=== PATIENT | female | born 2000 | race Caucasian/White ===

== ENCOUNTER 2024-08-11 23:04 | Emergency (ER) | payer BC, SELFPAY ==
[2024-08-11 23:05] VITALS: BP 152/109; PULSE 86; RESP 18; TEMP 36.4; O2SAT 98; BMI 27.3
[2024-08-12 00:17] VITALS: PULSE 84; RESP 18
[2024-08-12] MEDS: Ipratropium/Albuterol Sulfate 3 ML AMPUL.NEB INHALATION (00:17)
[2024-08-12] MEDS: dexAMETHasone 10 MG/ML Vial PO.IVFORM (00:22)
--- NOTE | 2024-08-12 00:35 | RAD_ITS ---
PROCEDURE: CHEST PA AND LATERAL 08/12/2024 REASON FOR EXAM: COUGH TECHNIQUE: CHEST PA AND LATERAL COMPARISON: None. FINDINGS: The lungs are expanded. There is no demonstrated parenchymal abnormality. There is no demonstrated pleural abnormality. Normal heart and pericardium. Normal mediastinum and elie. Normal visualized pulmonary arteries. Normal visualized aortic arch and descending thoracic aorta. Normal visualized thoracic spine. Normal visualized ribs, clavicles, and shoulders. There is no demonstrated abnormality of the visualized soft tissue structures of the upper abdomen. RAD/Chest PA and Lateral IMPRESSION: No evidence for acute abnormality. [facility]
--- NOTE | 2024-08-12 01:33 | EDS_ITS ---
HPI History of Present Illness Chief Complaint: Cold Sx Informant: patient Narrative Narrative: Patient is a 24-year-old female with past medical history of vaping. She states 2 to 3 weeks ago she had cough and congestion and was seen in urgent care and diagnosed with bronchitis. She states that after 7 to 10 days she got better from this. However in the last 2 to 3 days she has had return of nasal congestion sore throat and cough and this time feels short of breath. She denies any history of asthma but does admit to vaping. With her return of symptoms that she states are more intense/severe than the previous she presents for evaluation [facility] Medical History no medical history Home Medications ?Medication ?Instructions ?Recorded ?Last Taken ?Type azelastine 137 mcg (0.1 %) nasal 2 spray intranasal BI D #30 mL 08/12/24 Unknown Rx spray prednisone 20 mg tablet 40 mg (2 x 20 mg) PO DAILY 5 days 08/12/24 Unknown Rx #10 tabs Allergy/AdvReac Type Severity Reaction Status Date / Time amoxicillin Allergy Mild Rash Verified 08/11/24 23:05 Social History Smoking Status: Current every day smoker tobacco type: e-cigarettes ROS ROS ED Constitutional Constitutional ED: Denies chills or fever(s) Eyes Eyes: Denies change in vision ENT ENT ED: Reports rhinorrhea and sore throat Cardiovascular Cardiovascular: Denies chest pain Respiratory/Chest Respiratory/Chest: Reports cough and dyspnea Gastrointestinal Gastrointestinal: Denies abdominal pain, diarrhea, nausea or vomiting Genitourinary Genitourinary ED: Denies dysuria Musculoskeletal Musculoskeletal: Denies myalgias Integumentary Denies rash Neurologic Neurologic: Denies headache(s) Hematologic/Lymphatic Hematologic/Lymphatic: Denies easy bleeding or easy bruising Allergic/Immunologic Allergic/Immunologic ED: Denies mouth swelling or tongue swelling EXAM Physical Exam Const Vital Signs: 08/11/24 23:05 08/12/24 00:17 08/12/24 01:44 Temperature 97.5 F L 98.0 F Temperature Source Temporal Pulse Rate 86 84 80 Respiratory Rate 18 18 18 Respiratory Pattern Normal Blood Pressure 152/109 H 131/9 H Blood Pressure Mean 123 49 Pulse Ox 98 100 Oxygen Delivery Method Room Air Positive well nourished and well developed General Appearance ED: well developed; Negative for pallor HEENT HEENT Narrative: Bilateral TMs are retracted but show no secondary findings to suggest infection Nasal mucosa is hyperemic and boggy with enlarged inferior nasal turbinates There is cobblestoning in the posterior pharynx consistent with sinus drainage without airway edema or compromise; no secondary findings to suggest infection Eyes PERRL and EOMs intact bilaterally Neck supple and no JVD Neck Narrative: No nuchal rigidity or meningeal signs Resp normal respiratory effort Resp Narrative: Breath sounds are diminished throughout with faint expiratory wheeze in the bilateral lower lobes however no nasal flaring retractions tachypnea or accessory muscle use Cardio regular rate and regular rhythm Extremity normal to inspection Extremity Narrative: No asymmetric edema no pitting edema negative Homans' sign bilaterally Neuro oriented x3, CN's II-XII intact bilaterally and no sensory deficits noted Sensorium / Orientation: alert Motor Exam: strength 5/5 throughout Psych mental status grossly normal Skin no rashes or lesions noted and no wounds General Skin Exam: Negative for jaundice or pallor MDM MDM MDM Narrative Medical decision making narrative: Patient arrived to the ER hypertensive otherwise with stable vitals. She reported being sick for roughly 2 weeks with symptom improvement only to be sick once again. Differential diagnosis is for upper respiratory tract infection versus potential lung pathology such as pneumonia. As the patient is young and healthy without history of immunosuppression or showing lines of respiratory distress or need for supplemental oxygen I do not feel the need for testing other than chest x-ray to rule out pneumonia or potential pneumothorax. X-ray revealed no acute lung pathology and after receiving Decadron and a DuoNeb breathing treatment she had improvement of her breath sounds and reported feeling better. Therefore as workup is negative she is not in respiratory distress or showing signs of systemic infection she is otherwise safe for discharge with symptomatic care History & Record Review Discussion w/independent historian: Patient Radiography Diagnostic Testing: Clinical Impression(s) from Imaging Studies Chest X-Ray 08/12/24 00:35 IMPRESSION: No evidence for acute abnormality. Reading Location: [place] [id number] Chest x-ray as interpreted by the emergency medicine physician reveals no acute infiltrate pneumothorax or pleural effusion Discharge Plan Triage Chief Complaint: Cold Sx ED Provider: Librado Riley Dx/Rx/DC Orders Clinical Impression: Viral upper respiratory tract infection with cough, Engages in vaping Instructions: ED URI, Viral W/ Wheezing (Adult) Prescriptions: New azelastine 137 mcg (0.1 %) spray,non-aerosol 2 spray intranasal BID Qty: 30 0RF Rx Instructions: administer into each nostril prednisone 20 mg tablet 40 mg PO DAILY 5 Days Qty: 10 0RF Stand Alone Forms: ED Work / School Excuse Primary Care Provider: Care Physician,No Primary Referrals: Delano Gaffney MD [Med Staff - Active Staff] - Care Physician,No Primary [Primary Care Provider] - Activity Restrictions/Additional Instructions: Your x-ray showed no pneumonia. Your symptoms are consistent with a viral upper respiratory tract infection. This will need to resolve on its own as antibiot ics cannot kill a virus. It will last on average 2 to 3 weeks. Take the prescribed medication as directed to help control your symptoms and return to the ER should you have any further concerns. Print Language: Chilean Disposition Disposition: Home, Self Care Discharge Date/Time: 08/12/24 01:44
[2024-08-12] MEDS: Albuterol Sulfate 8 gm Inhaler (60 puffs) 2 PUFF INHALATION (01:43)
[2024-08-12 01:44] VITALS: BP 131/9; PULSE 80; RESP 18; TEMP 36.7; O2SAT 100
== END 2024-08-12 01:44 | disposition home or self-care (01) ==
PROVIDERS: Emergency Provider Emergency Medicine; Visit Provider Emergency Medicine
DX: J06.9 Acute upper respiratory infection, unspecified (principal); F17.290 Nicotine dependence, other tobacco product, uncomplicated
CPT/HCPCS: 71046; 94640; 99282

== ENCOUNTER 2024-12-06 03:06 | Emergency (ER) | payer OTHER, BC, SELFPAY ==
[2024-12-06 03:10] VITALS: BP 132/78; PULSE 70; RESP 16; TEMP 36.6; O2SAT 100; BMI 26.9
[2024-12-06] MEDS: Tetracaine 0.5% Ophthalmic Bottle 1 DRP RIGHT EYE (03:36)
--- NOTE | 2024-12-06 03:44 | CT_ITS ---
PROCEDURE: SINUS/FACIAL BONE 12/06/2024 REASON FOR EXAM: INJURY/PAIN TECHNIQUE: Procedure Code: CTSI Modality: CT Procedure: SINUS/FACIAL BONE Coronal and Sagittal reconstruction series were provided. One or more dose reduction techniques were used (e.g., Automated exposure control, adjustment of the mA and/or kV according to patient size, use of iterative reconstruction technique). RADIATION DOSE SUMMARY: CTDlvol: 29.3 mGy DLP: 753 mGycm COMPARISON: None. FINDINGS: Normal bilateral orbital contents. Normal bilateral medial and inferior orbital snyder. Normal bilateral maxillary bones. Normal bilateral maxillary sinuses. Normal bilateral frontozygomatic arches. Normal bilateral zygomatic temporal arches. Normal nasal bones. Normal anterior nasal spine. Normal soft tissue structures. There is no demonstrated fracture. Normal visualized frontal, ethmoidal and sphenoid sinuses. CT/Sinus/Facial Bone IMPRESSION: No CT evidence of an acute traumatic bone abnormality. Reading [facility]
--- NOTE | 2024-12-06 04:47 | EDS_ITS ---
HPI History of Present Illness Chief Complaint: Head Injury Informant: patient Narrative Narrative: Patient is a 24-year-old female with remote history of epilepsy. She states she works third shift. 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 She states the 1 door was not locked and as she moved the machine it swung open and struck her in the right side of the face near the right eye. She denies any loss of consciousness. She denies any history of bleeding disorder or blood thinner use. She states since the injury she has had pain and swelling along the right eye coupled with headache nausea fatigue and light sensitivity. Secondary to the injury and the symptoms she was sent to the ER for evaluation [facility] Medical History (Updated 12/06/24 @ 04:[address] Librado Riley, DO) Epilepsy Home Medications ?Medication ?Instructions ?Recorded ?Last Taken ?Type ethosuximide 250 mg capsule 250 mg PO DAILY 12/06/24 U nknown History sertraline 50 mg tablet 50 mg PO DAILY 12/06/24 Unkn own History Allergy/AdvReac Type Severity Reaction Status Date / Time amoxicillin Allergy Mild Rash Verified 12/06/24 03:07 Social History Smoking Status: Current every day smoker tobacco type: e-cigarettes ROS ROS ED Constitutional Constitutional ED: Denies chills or fever(s) Eyes Eyes: Reports other Details: Positive photophobia ; Denies blurry vision ENT ENT ED: Reports other Details: No nasal bleeding Positive right cheek/periorbital pain ; Denies sore throat Cardiovascular Cardiovascular: Reports other Details: Negative syncope ; Denies chest pain Respiratory/Chest Respiratory/Chest: Denies cough or dyspnea Gastrointestinal Gastrointestinal: Reports nausea; Denies abdominal pain, diarrhea or vomiting Musculoskeletal Musculoskeletal: Denies back pain or neck pain Integumentary Reports Abrasions and other Details: Positive abrasion right upper eyelid Neurologic Neurologic: Reports headache(s) Hematologic/Lymphatic Hematologic/Lymphatic: Denies easy bleeding or easy bruising EXAM Physical Exam Const Vital Signs: 12/06/24 03:10 12/06/24 03:13 12/06/24 04:58 Temperature 97.9 F 97.6 F L Temperature Source Oral Pulse Rate 70 70 Respiratory Rate 16 18 Respiratory Effort Normal Blood Pressure 132/78 H 128/62 H Blood Pressure Mean 96 84 Pulse Ox 100 100 Oxygen Delivery Method Room Air Room Air Positive well nourished and well developed General Appearance ED: well developed; Negative for pallor HEENT HEENT Narrative: Patient has soft tissue swelling with faint ecchymosis along the right lateral periorbital region that extends into the right upper eyelid There is a small less than half centimeter superficial abrasion along the right upper eyelid without active bleeding or retained foreign body No septal hematoma No signs of depressed or basilar skull fracture Eyes PERRL and EOMs intact bilaterally Eyes Narrative: Soft tissue swelling along the right orbit as documented above No hyphema No subconjunctival hemorrhage No corneal abrasion no retained foreign body Neck supple Neck Narrative: No bony deformity or step-off of the cervical spine; no midline tenderness to palpation Resp normal respiratory effort and clear to auscultation bilaterally Cardio regular rate and regular rhythm Extremity normal to inspection Neuro oriented x3, CN's II-XII intact bilaterally and no sensory deficits noted Sensorium / Orientation: alert Motor Exam: strength 5/5 throughout Psych mental status grossly normal Skin no rashes or lesions noted Skin Narrative: Soft tissue swelling along the right orbit and upper eyelid with superficial abrasion as documented above General Skin Exam: Negative for jaundice or pallor MDM MDM MDM Narrative Medical decision making narrative: Patient arrived to the ER with stable vitals. She reported direct trauma to the right side of the face/orbit. In order to ensure there is no sign of orbital fracture retrobulbar hematoma or zygomatic arch fracture I did elect to perform a CT scan of the face. This revealed no acute finding. By physical exam she does not have a hyphema or a subconjunctival hemorrhage. The patient was given tetracaine and then fluorescein was used to stain the eye to check for potential corneal abrasion or retained foreign object. This was negative. Therefore as patient has headache with nausea and photophobia and fatigue this correlates with concussion. However as she is neurologically intact with stable vitals there is no need for further intervention and she is otherwise safe for discharge. History & Record Review Discussion w/independent historian: Patient Radiography Diagnostic Testing: Clinical Impression(s) from Imaging Studies Facial/Sinus 12/06/24 03:44 IMPRESSION: No CT evidence of an acute traumatic bone abnormality. Reading [facility] Discharge Plan Triage Chief Complaint: Head Injury ED Provider: Librado Riley Dx/Rx/DC Orders Clinical Impression: Contusion of face, Concussion Instructions: Concussion Dc, ED Facial Contusion Prescriptions: No Action ethosuximide 250 mg capsule 250 mg PO DAILY sertraline 50 mg tablet 50 mg PO DAILY Primary Care Provider: Care Physician,No Primary Referrals: [facility] [Provider Group] Care Physician,No Primary [Primary Care Provider, Medical] Activity Restrictions/Additional Instructions: Your CT scan showed no sign of facial fracture or bleeding behind your eye. Your eye exam revealed no sign of corneal abrasion. Your history and exam is consistent with a contusion which is a bone bruise as well as mild concussion. Please avoid bright flashing lights for the next few days as this will make symptoms worse and last longer. Take Tylenol and or Motrin for pain control and return to the ER should you have any further concerns. Print Language: Israeli Disposition Disposition: Home, Self Care Discharge Date/Time: 12/06/24 04:59
[2024-12-06 04:58] VITALS: BP 128/62; PULSE 70; RESP 18; TEMP 36.4; O2SAT 100
== END 2024-12-06 04:59 | disposition home or self-care (01) ==
PROVIDERS: Emergency Provider Emergency Medicine; Visit Provider Emergency Medicine
DX: S06.0X0A Concussion without loss of consciousness, initial encounter (principal); G40.909 Epilepsy, unspecified, not intractable, without status epilepticus; S00.211A Abrasion of right eyelid and periocular area, initial encounter; S00.11XA Contusion of right eyelid and periocular area, initial encounter; W31.2XXA Contact with powered woodworking and forming machines, initial encounter; Z79.899 Other long term (current) drug therapy; F17.290 Nicotine dependence, other tobacco product, uncomplicated
CPT/HCPCS: 70486; 99282

== ENCOUNTER 2024-12-07 23:08 | Emergency (ER) | payer OTHER, BC, SELFPAY ==
[2024-12-07 23:09] VITALS: BP 130/88; PULSE 67; RESP 18; TEMP 35.9; O2SAT 100; BMI 27.2
--- NOTE | 2024-12-07 23:25 | EDS_ITS ---
HPI History of Present Illness Chief Complaint: Head Injury Narrative Narrative: Patient is a 24-year-old female with past medical history of epilepsy who presents to the emergency department with chief complaint of headache. States that she was seen here yesterday after she was hit in the head with a door at work she states that she did not lose consciousness at that point time. She states that she came here had an evaluation was sent home. States that she tried take Aleve for headache after she woke up today however she states that her headache is still severe. She notes that her family had a difficult time waking her up around 9 PM today and this concerned her to come here for further evaluation management. States that she was diagnosed with concussion yesterday as well. Patient states that she has been nauseous. However states that she has eaten and has not had any vomiting PFSH [facility] Medical History Epilepsy Home Medications ?Medication ?Instructions ?Recorded ?Last Taken ?Type ethosuximide 250 mg capsule 250 mg PO DAILY 12/06/24 U nknown History sertraline 50 mg tablet 50 mg PO DAILY 12/06/24 Unkn own History ondansetron 4 mg disintegrating 4 mg PO Q6H PRN nausea and 12/08/24 Unknown Rx tablet vomiting #20 tabs Allergy/AdvReac Type Severity Reaction Status Date / Time amoxicillin Allergy Mild Rash Verified 12/07/24 23:08 Social History Smoking Status: Current every day smoker tobacco type: e-cigarettes ROS ROS ED ROS Narrative Constitutional: Headache as noted above denies lightheadedness or dizziness Eyes: Denies double vision blurry vision Cardiovascular: Denies chest pain Respiratory: Denies shortness of breath Abdomen: Complains of nausea denies vomiting or diarrhea denies abdominal pain : Denies urinary symptoms Neurological: Denies any numbness, weakness, tingling Musculoskeletal: Denies back pain Skin: Denies any rashes or lesions EXAM Physical Exam Narrative Exam Narrative: General: Patient was lying in bed rest comfortably did not appear to be in acute distress Head: Atraumatic, normocephalic Eyes: PERRL bilaterally, EOMI bilaterally, no conjunctival injection noted Neck: Soft, supple, trachea midline Cardiovascular: Regular rate and rhythm Respiratory: Clear to auscultation bilaterally Abdomen: Soft, nondistended, no tenderness to palpation Extremities: +5/5 strength in the bilateral lower extremities Neurological: Patient following commands knew that she was at [facility] years 2024. NIH is 0 GCS 15. Patient completed finger-nose testing bilaterally without difficulty Skin: Warm, dry, tact no rashes or lesions noted Const Vital Signs: 12/07/24 23:09 12/07/24 23:34 Temperature 96.7 F L Temperature Source Temporal Pulse Rate 67 Respiratory Rate 18 Respiratory Effort Normal Respiratory Depth Normal Respiratory Pattern Normal Blood Pressure 130/88 H Blood Pressure Mean 102 Pulse Ox 100 Oxygen Delivery Method Room Air Room Air MDM MDM MDM Narrative Medical decision making narrative: Patient is a 24-year-old female who presented to the emergency department the chief complaint of headache after head trauma yesterday. On the differential diagnose includes but not limited to intracranial hemorrhage, concussion, . Patient was given a gram of Tylenol, Zofran and be reevaluated. Patient CT head brain without contrast showed no acute intracranial normalities. I reevaluated the patient she is feeling better she like to go home at this point time. She is advised to rotate Tylenol and ibuprofen [id number] for mild to moderate pain when she does that she can take something every 3 hours for pain. Prescription for Zofran ODT sent to the pharmacy as well. She was encouraged return with worsening symptoms or other concerns. All question concerns answered she was discharged home in stable condition. Radiography Diagnostic Testing: Clinical Impression(s) from Imaging Studies Brain CT 12/07/24 23:29 IMPRESSION: No acute intracranial abnormality. Reading Location: [facility] Discharge Plan Triage Chief Complaint: Head Injury ED Provider: Robert Tovar Dx/Rx/DC Orders Clinical Impression: Concussion, Contusion of face, Encounter for medical screening examination, Nausea Prescriptions: New ondansetron 4 mg tablet,disintegrating 4 mg PO Q6H PRN (Reason: nausea and vomiting) Qty: 20 0RF No Action ethosuximide 250 mg capsule 250 mg PO DAILY sertraline 50 mg tablet 50 mg PO DAILY Primary Care Provider: Care Physician,No Primary Referrals: Care Physician,No Primary [Primary Care Provider, Medical] Cassidy Bello [facility], GENERATOR TECHNICIAN-C [[facility], [facility]] Activity Restrictions/Additional Instructions: Follow-up the doctor you are referred to. Use the Zofran as prescribed. Rotate Tylenol and ibuprofen [id number] when you do this you can take something every 3 hours for pain max dose of Tylenol in 24 hours 4000 mg max dose of ibuprofen in 24 hours 3200 mg. Return for worsening symptoms or any other concerns. Your CT of your head was normal no evidence of bleeding on the brain. Print Language: Portuguese Disposition Disposition: Home, Self Care
--- NOTE | 2024-12-07 23:29 | CT_ITS ---
PROCEDURE: CT BRAIN/HEAD WITHOUT CONTRAST 12/07/2024 REASON FOR EXAM: HEAD TRAUMA TECHNIQUE: Procedure Code: CTBR Modality: CT Procedure: BRAIN/HEAD WITHOUT CONTRAST Coronal and Sagittal reconstruction series were provided. One or more dose reduction techniques were used (e.g., Automated exposure control, adjustment of the mA and/or kV according to patient size, use of iterative reconstruction technique. RADIATION DOSE SUMMARY: CTDlvol: 44.99 mGy DLP: 812.98 mGycm COMPARISON: None. FINDINGS: No acute intracranial hemorrhage, extra-axial collection, mass effect or evidence of acute infarct. Ventricles and subarachnoid spaces are normal in size. Orbital contents are unremarkable. Intact skull base and calvarium. Clear paranasal sinuses and mastoid air cells. CT/Brain/Head without Contrast IMPRESSION: No acute intracranial abnormality. Reading Location: [id number]
--- OUTSIDE RECORDS SUMMARY | 2024-12-07 23:45 | XMS RPT_ITS | CCD ---
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 Name Role Phone Unavailable Unavailable Unavailable Kotagal, Jake Unavailable Unavailable Kotagal, Jake Unavailable Unavailable Seifried, Korin Unavailable Unavailable Seifried, Korin Unavailable Unavailable FELISHA, PETER Unavailable Unavailable FELISHA, PETER Unavailable Unavailable FELISHA, PETER Unavailable Unavailable NONE, NONE Unavailable Unavailable FELISHA, PETER Unavailable Unavailable FELISHA, PETER Unavailable Unavailable NONE, NONE Unavailable Unavailable Jaison, Cruz [phone] Unavailable Unav ailable MOHIT CAMILO Unavailable Unavailable NONE, NONE Unavailable Unavailable MOHIT CAMILO Unavailable Unavailable MOHIT CAMILO Unavailable Unavailable MOHIT CAMILO Unavailable Unavailable NONE, NONE Unavailable Unavailable Unavailable Primary Care Provider Unavailabl e Provider, Historical Primary Care Provider Unava ilable Provider, Historical Primary Care Provider Unava ilable Unavailable Primary Care Provider Unavailabl mehreen Pineda, Dr. Martin Ferguson Attending Unav ailable Pending, Provider Primary Care Unavailable Generic Provider MD, No Assigned Pcp Primary Car e Provider Unavailable Unavailable Primary Care Provider Unavailabl e GENERIC PROVIDER, NO ASSIGNED PCP Primary Care Unavailable KELSI DESAI Referring Unavailable GENERIC PROVIDER, NO ASSIGNED PCP Primary Care Unavailable Provider, Historical Primary Care Provider Unava ilable GURDEEP VARGAS Referring Unavailabl e ADOLFO ANDERSON Attending Unavailable Provider, Historical Primary Care Provider Unava ilable Care Physician, No Primary Primary Care Provider Unavailable Dr. Librado Riley DO Emergency Provider Unavailable Primary Care Provider UnavailCASSIDY Jimenez Attending Unavailable SELF, SELF Referring Unavailable Unavailable Primary Care Provider UnavailDIAN Peterson Attending Unavailable NEREYDA GONSALES Attending Unavaila Librado You Attending Unavailable Care Physician, No Primary Primary Care Unava ilable Care Physician, No Primary Primary Care Unava ilLibrado Mix Attending Unavailable Allergies Allergy Classification Reported Allergen(s) Allergy Type Date of Onset Reaction(s) Facility (20 sources) amoxicillin; Translations: [Amoxicillin] Drug Allergy 05-09-2013 Rash [facility] Repository Medications Current Medications Medication Drug Class(es) Dates Sig (Normalized) Sig (Original) azelastine hydrochloride 0.137 mg/actuat metered dose nasal spray (1 source) Histamine-1 Receptor Antagonist Start: 08-12-2024 Azelastine 137 mcg (0.1 %) spray,non-aerosol Active 2 NMA INTRANASAL TWICE A DAY August 12, 2024 12:00am administer into each nostril azithromycin 250 mg oral tablet (1 source) Macrolide Antimicrobial Start: 07-02-2018 End: 07-07-2018 take 2 tablets by mouth once daily, then take 1 tablet by mouth once daily, then take 2-5 tablets by mouth azithromycin 250 MG Tab tablet Indications: Strep throat Take by mouth 2 tablets (500 mg) on Day 1, then 1 tablet (250 mg) daily on Days 2-5 6 tablet 0 07/02/2018 07/07/2018 Active brompheniramine maleate 0.4 mg/ml / dextromethorphan hydrobromide 2 mg/ml / pseudoephedrine hydrochloride 6 mg/ml oral solution (2 sources) alpha-Adrenergic Agonist, Uncompetitive K-csojev-B-asparta te Receptor Antagonist, Sigma-1 Agonist Start: 07-26-2024 take 10 mL by mouth every six hours as needed pseudoephedrine-bro mpheniramine-dextro methorphan 30-2-10 MG/5ML Syrup Indications: Sore throat , Viral illness , Acute cough Take 10 mL by mouth every 6 hours as needed. 280 mL 07/26/2024 Active ergocalciferol 1.25 mg oral capsule (8 sources) Provitamin D2 Compound Start: 02-04-2019 ergocalciferol (ERGOCALCIFEROL) 1,250 mcg (50,000 unit) capsule Take 1 (one) capsule (50,000 Units total) by mouth . 02/04/2019 Active Start: 02-04-2019 ergocalciferol 1.25 MG (58988 UT) Cap Take 1 capsule by mouth. 02/04/2019 Active folic acid 1 mg oral tablet (16 sources) Start: 09-25-2021 End: 07-08-2023 take 1 tablet by mouth once daily folic acid 1 mg tablet Indications: Generalized nonconvulsive epilepsy (HCC) Take 1 tablet by mouth once daily. 90 tablet 3 07/08/2023 Active Comment on above: Take 1 tablet by virgilio once daily. predniSONE 20 mg oral tablet (3 sources) Start: 08-12-2024 take 2 tablets by mouth once daily Prednisone 20 mg tablet Active 40 mg PO DAILY 10 August 12, 2024 12:00am Start: 07-01-2018 End: 07-06-2018 take 2 tablets by mouth once daily predniSONE 20 MG Tab tablet Indications: Acute viral pharyngitis Take 2 tablets by mouth daily for 5 days. 10 tablet 0 07/01/2018 07/06/2018 Active sertraline 50 mg oral tablet (14 sources) Serotonin Reuptake Inhibitor Start: 02-04-2019 End: 05-05-2019 take 1 tablet by mouth once daily at dinner sertraline 50 MG Tab tablet Take 50 mg by mouth Daily (with dinner). 02/04/2019 Active Comment on above: TAKE 1 AND 1/2 TABLE TS BY MOUTH ONCE DAILY Completed/Discontinued Medications Medication Drug Class(es) Dates Sig (Normalized) Sig (Original) dextromethorphan hydrobromide 15 mg / guaiFENesin 400 mg / pseudoephedrine hydrochloride 60 mg oral tablet (2 sources) alpha-Adrenergic Agonist, Uncompetitive C-ovzfpo-C-asparta te Receptor Antagonist, Sigma-1 Agonist Start: 12-02-2017 End: 07-01-2018 take 1 tablet by mouth every six hours as needed pseudoephedrine-dex tromethorphan-guaiF ENesin 60-15-400 MG Tab tablet Indications: Acute upper respiratory infection Take 1 tablet by mouth every 6 hours as needed. 30 tablet 0 12/02/2017 07/01/2018 Discontinued ethosuximide 250 mg oral capsule (20 sources) Anti-epileptic Agent Start: 05-08-2017 End: 11-29-2024 take 1 tablet by mouth once daily in the morning ethosuximide (ZARONTIN) 250 mg capsule Take (2) tablets by mouth in the AM and (3) tablets in the PM (=1250 mg/d) 05/08/2017 11/29/2024 Discontinued Comment on above: Take (2) tablets by mouth in the AM and (3) tablets in the PM (=1250 mg/d) naproxen 500 mg oral tablet (2 sources) Nonsteroidal Anti-inflammatory Drug Start: 03-02-2023 End: 03-09-2023 naproxen (Naprosyn) tablet 500 mg ondansetron 4 mg disintegrating oral tablet (7 sources) Serotonin-3 Receptor Antagonist Start: 11-29-2024 End: 11-29-2024 ondansetron (ZOFRAN-ODT) disintegrating tablet 4 mg Start: 11-29-2024 End: 11-29-2024 take 1 tablet by mouth once 4 mg, Oral, Once, On Thu at 1730, For 1 dose, Formulation requires tablet remain in sealed package until immediately prior to dose being administered. Start: 11-29-2024 End: 12-02-2024 apply 1 tablet topically every six hours as needed for nausea ondansetron (ZOFRAN-ODT) 4 MG disintegrating tablet Indications: Nausea and vomiting, unspecified vomiting type Dissolve 1 (one) tablet (4 mg total) on top of tongue every 6 (six) hours as needed (nausea/vomiting) . 12 tablet 11/29/2024 12/02/2024 Active Start: 11-24-2024 End: 12-01-2024 apply 1 tablet topically every eight hours as needed for nausea ondansetron (ZOFRAN-ODT) 4 MG disintegrating tablet Indications: Nausea and vomiting, unspecified vomiting type Dissolve 1 (one) tablet (4 mg total) on top of tongue every 8 (eight) hours as needed for nausea . 12 tablet 11/24/2024 11/29/2024 Discontinued Start: 07-26-2024 take 1 tablet by virgilio th every eight hours as needed for nausea Ondansetron 4 MG Tab Dispersible tablet Indications: Nausea and vomiting, unspecified vomiting type Take 1 tablet by mouth every 8 hours as needed for Nausea. 15 tablet 07/26/2024 Active 1 ml triamcinolone acetonide 40 mg/ml injection (5 sources) Corticosteroid Start: 10-20-2023 End: 10-20-2023 triamcinolone (KENALOG-40) injection 40 mg Start: 10-20-2023 End: 10-20-2023 inject 1 dose by intramuscular injection once 40 mg, Intramuscular, ONCE (IN CLINIC), 1 dose, On Thu10/20/23 at 1615 Start: 10-20-2023 triamcinolone 0.1 % Cream cream Indications: Irritant contact dermatitis due to plants, except food , Vesicular rash Apply twice daily as needed 45 g 1 10/20/2023 Active Problems Active Problems Problem Classification Problem Date Documented Da te Episodic/Chronic Allergic reactions (2 sources) Allergy status to penicillin; Translations: [Irritant contact dermatitis due to plant] Onset: 11-17-2022 10-20-2023 Episodic Anxiety disorders (1 source) Mixed anxiety and depressive disorder; Translations: [Anxiety disorder, unspecified] 07-08-2023 Chronic E Codes: Other specified and classifiable (1 source) Caught, crushed, jammed, or pinched between moving objects, initial encounter; Translations: [Caught, crush, jammed, or pinched betw moving objects, init] Onset: 11-17-2022 Episodic Epilepsy; convulsions (12 sources) Generalized non-convulsive epilepsy; Translations: [Generalized idiopathic epilepsy and epileptic syndromes, not intractable, without status epilepticus] Onset: 05-10-2013 Chronic Headache; including migraine (1 source) Acute headache; Translations: [Acute nonintractable headache, unspecified headache type] 10-16-2024 Episodic Headache; including migraine (2 sources) Headache; including migraine; Translations: [Headache, unspecified] Onset: 10-15-2024 Influenza (2 sources) Influenza due to Influenza A virus; Translations: [Influenza due to Influenza virus, type B] Episodic Nausea and vomiting (7 sources) Nausea and vomiting; Translations: [Nausea with vomiting, unspecified] Onset: 07-26-2024 07-26-2024 Episodic Nonspecific chest pain (3 sources) Chest pain; Translations: [Chest pain, unspecified] Onset: 10-15-2024 10-16-2024 Episodic Nutritional deficiencies (1 source) Vitamin D deficiency; Translations: [Vitamin D deficiency, unspecified] 07-08-2023 Chronic Other aftercare (1 source) Other snf (current) drug therapy; Translations: [Other manager long term care (current) drug therapy] Onset: 11-17-2022 Episodic Other connective tissue disease (1 source) Pain in left hand; Translations: [Pain in left hand] Onset: 11-17-2022 Episodic Other connective tissue disease (1 source) Other specified soft tissue disorders; Translations: [Other specified soft tissue disorders] Onset: 11-17-2022 Episodic Other ear and sense organ disorders (1 source) Impacted cerumen of bilateral ears; Translations: [Impacted cerumen, bilateral] Episodic Other gastrointestinal disorders (2 sources) Encopresis ; Translations: [Full incontinence of feces] Onset: 11-24-2024 11-24-2024 Episodic Other lower respiratory disease (1 source) Cough; Translations: [Acute cough] 07-26-2024 Episodic Other non-traumatic joint disorders (1 source) Joint pain; Translations: [Pain in unspecified joint] 07-08-2023 Episodic Other skin disorders (1 source) Eruption; Translations: [Other skin changes] 10-20-2023 Episodic Other upper respiratory disease (3 sources) Other specified disorders of nose and nasal sinuses; Translations: [Other disease of nasal cavity and sinuses] Onset: 11-29-2024 11-29-2024 Episodic Other upper respiratory infections (6 sources) Acute viral pharyngitis; Translations: [Streptococcal sore throat] Onset: 07-26-2024 07-26-2024 Episodic Residual codes; unclassified (1 source) Influenza-like symptoms; Translations: [Flu-like symptoms] Episodic Unclassified (1 source) Acute cough; Translations: [Acute cough] Onset: 07-26-2024 Viral infection (4 sources) Disease caused by 2019-nCoV; Translations: [COVID-19] Onset: 07-26-2024 Episodic Past or Other Problems Problem Classification Problem Date Documented Da te Episodic/Chronic Abdominal pain (5 sources) Unspecified abdominal pain; Translations: [Abdominal pain, unspecified site] Onset: 04-27-2017 Episodic Genitourinary symptoms and ill-defined conditions (6 sources) Dysuria; Translations: [Dysuria] Onset: 10-27-2016 Episodic Other upper respiratory disease (1 source) Nasal congestion; Translations: [Nasal congestion] Onset: 08-17-2024 Episodic Sprains and strains (3 sources) Sprain of right ankle; Translations: [Sprain of unspecified ligament of right ankle, initial encounter] Onset: 03-02-2023 03-02-2023 Episodic Superficial injury; contusion (7 sources) Contusion of left hand, initial encounter; Translations: [Contusion of left hand] Onset: 11-17-2022 12-04-2022 Episodic Unclassified (1 source) ABDOMINAL PAIN-SITE NOS; Translations: [ABDOMINAL PAIN-SITE NOS] Onset: 04-27-2017 Unclassified (1 source) Acute cough; Translations: [Acute cough] Onset: 07-26-2024 Results Test Name Value Interpretation Reference Range Facility Emergency Department Summary on 12-06-2024 Emergency Department Summary [facility] Medical Records Department [address] [place] [address] Emergency Department Summary 12/06/24 MR#: [id number] Acct: [id number] Name: LIN DECKER Zach Rep #: [id number] : 2000 24 From: Librado Riley DO PCP: Care Physician,No Primary Status:DEP ER Location: ED HPI History of Present Illness Chief Complaint: Head Injury Informant: patient Narrative Narrative: Patient is a 24-year-old female with remote history of epilepsy. She states she works third shift. 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 She states the 1 door was not locked and as she moved the machine it swung open and struck her in the right side of the face near the right eye. She denies any loss of consciousness. She denies any history of bleeding disorder or blood thinner use. She states since the injury she has had pain and swelling along the right eye coupled with headache nausea fatigue and light sensitivity. Secondary to the injury and the symptoms she was sent to the ER for evaluation [facility] Medical History (Updated 12/06/24 @ 04:[address] Librado Riley, DO) Epilepsy Home Medications ???Medication ???Instructions ???Recorded ???Last Taken ???Type ethosuximide 250 mg capsule 250 mg PO DAILY 12/06/24 Unknown H istory sertraline 50 mg tablet 50 mg PO DAILY 12/06/24 Unknown Hi story Allergy/AdvReac Type Severity Reaction Status Date / Time amoxicillin Allergy Mild Rash Verified 12/06/24 03:07 Social History Smoking Status: Current every day smoker tobacco type: e-cigarettes ROS ROS ED Constitutional Constitutional ED: Denies chills or fever(s) Eyes Eyes: Reports other Details: Positive photophobia ; Denies blurry vision ENT ENT ED: Reports other Details: No nasal bleeding Positive right cheek/periorbital pain ; Denies sore throat Cardiovascular Cardiovascular: Reports other Details: Negative syncope ; Denies chest pain Respiratory/Chest Respiratory/Chest: Denies cough or dyspnea Gastrointestinal Gastrointestinal: Reports nausea; Denies abdominal pain, diarrhea or vomiting Musculoskeletal Musculoskeletal: Denies back pain or neck pain Integumentary Reports Abrasions and other Details: Positive abrasion right upper eyelid Neurologic Neurologic: Reports headache(s) Hematologic/Lymphatic Hematologic/Lymphatic : Denies easy bleeding or easy bruising EXAM Physical Exam Const Vital Signs: 12/06/24 03:10 12/06/24 03:13 12/06/24 04:58 Temperature 97.9 F 97.6 F L Temperature Source Oral Pulse Rate 70 70 Respiratory Rate 16 18 Respiratory Effort Normal Blood Pressure 132/78 H 128/62 H Blood Pressure Mean 96 84 Pulse Ox 100 100 Oxygen Delivery Method Room Air Room Air Positive well nourished and well developed General Appearance ED: well developed; Negative for pallor HEENT HEENT Narrative: Patient has soft tissue swelling with faint ecchymosis along the right lateral periorbital region that extends into the right upper eyelid There is a small less than half centimeter superficial abrasion along the right upper eyelid without active bleeding or retained foreign body No septal hematoma No signs of depressed or basilar skull fracture Eyes PERRL and EOMs intact bilaterally Eyes Narrative: Soft tissue swelling along the right orbit as documented above No hyphema No subconjunctival hemorrhage No corneal abrasion no retained foreign body Neck supple Neck Narrative: No bony deformity or step-off of the cervical spine; no midline tenderness to palpation Resp normal respiratory effort and clear to auscultation bilaterally Cardio regular rate and regular rhythm Extremity normal to inspection Neuro oriented x3, CN's II-XII intact bilaterally and no sensory deficits noted Sensorium / Orientation: alert Motor Exam: strength 5/5 throughout Psych mental status grossly normal Skin no rashes or lesions noted Skin Narrative: Soft tissue swelling along the right orbit and upper eyelid with superficial abrasion as documented above General Skin Exam: Negative for jaundice or pallor MDM MDM MDM Narrative Medical decision making narrative: Patient arrived to the ER with stable vitals. She reported direct trauma to the right side of the face/orbit. In order to ensure there is no sign of orbital fracture retrobulbar hematoma or zygomatic arch fracture I did elect to perform a CT scan of the face. This revealed no acute finding. By physical exam she does not have a hyphema or a subconjunctival hemorrhage. The patient was given tetracaine and then fluorescein was used to stain the eye to check for potential corneal abrasion or retained foreign object. This was negative. Therefore as patient (more content not included)... Normal [facility] Sinus/Facial Boneon 12-07-19 Sinus/Facial Bone [facility] Imaging Services [address] [place] [address] Sinus/Facial Bone MR#: [id number] Acct: [id number] Name: LIN DECKER Rep #: [id number] : 2000 F 24 From: Bharti samuel MD PCP: Care Physician,No Primary Status: REG ER Study: Sinus/Facial Bone Date of Exam: 12/06/24 Exam# [id number] Ordering Dr: Librado Riley DO PROCEDURE: SINUS/FACIAL BONE 12/06/2024 REASON FOR EXAM: INJURY/PAIN TECHNIQUE: Procedure Code: CTSI Modality: CT Procedure: SINUS/FACIAL BONE Coronal and Sagittal reconstruction series were provided. One or more dose reduction techniques were used (e.g., Automated exposure control, adjustment of the mA and/or kV according to patient size, use of iterative reconstruction technique). RADIATION DOSE SUMMARY: CTDlvol: 29.3 mGy DLP: 753 mGycm COMPARISON: None. FINDINGS: Normal bilateral orbital contents. Normal bilateral medial and inferior orbital snyder. Normal bilateral maxillary bones. Normal bilateral maxillary sinuses. Normal bilateral frontozygomatic arches. Normal bilateral zygomatic temporal arches. Normal nasal bones. Normal anterior nasal spine. Normal soft tissue structures. There is no demonstrated fracture. Normal visualized frontal, ethmoidal and sphenoid sinuses. CT/Sinus/Facial Bone IMPRESSION: No CT evidence of an acute traumatic bone abnormality. Reading [facility] CC: Librado Riley DO; No Primary Care Physician [employer]: Signed Normal [facility] Portable XR Chest Viewson IMPRESSION: Normal examination of the chest. RADIOLOGY EXAM: XR CHEST 1 VIE W PORTABLE REASON FOR EXAM: Female, 24 years, pain. TECHNIQUE: A single AP view of the chest is performed. COMPARISON: None. FINDINGS: Cardiac monitoring leads overlie the chest. The lungs are expanded and clear. Normal pleura. Normal size heart. Normal mediastinum and elie. Normal visualized pulmonary arteries. Normal visualized aortic arch and descending thoracic aorta. Normal visualized thoracic spine. Normal visualized ribs, clavicles, and shoulders. There is no demonstrated abnormality of the visualized soft tissue structures of the upper abdomen. RADIOLOGY Blayne Bello DO - 10/16/2024 EXAM: XR CHEST 1 VIEW PORTABLE REASON FOR EXAM: Female, 24 years, pain. TECHNIQUE: A single AP view of the chest is performed. COMPARISON: None. FINDINGS: Cardiac monitoring leads overlie the chest. The lungs are expanded and clear. Normal pleura. Normal size heart. Normal mediastinum and elie. Normal visualized pulmonary arteries. Normal visualized aortic arch and descending thoracic aorta. Normal visualized thoracic spine. Normal visualized ribs, clavicles, and shoulders. There is no demonstrated abnormality of the visualized soft tissue structures of the upper abdomen. IMPRESSION IMPRESSION: Normal examination of the chest. [facility] (narrative[facility] Chest ViewsOrder ed By: Blayne Bello on 10-16-2024 [employer] Work Phone: XR CHEST 1 VIEW PORTABLEon 0 10-16-2024 XR CHEST 1 VIEW PORTABLE EXAM: XR CHEST 1 VIEW PORTABLE REASON FOR EXAM: Female, 24 years, pain. TECHNIQUE: A single AP view of the chest is performed. COMPARISON: None. FINDINGS: Cardiac monitoring leads overlie the chest. The lungs are expanded and clear. Normal pleura. Normal size heart. Normal mediastinum and elie. Normal visualized pulmonary arteries. Normal visualized aortic arch and descending thoracic aorta. Normal visualized thoracic spine. Normal visualized ribs, clavicles, and shoulders. There is no demonstrated abnormality of the visualized soft tissue structures of the upper abdomen. IMPRESSION: Normal examination of the chest. Normal [facility] CBCon 10-15-2024 ABSOLUTE BAS 0.0 10*3/uL Normal 0.0-0.2 [facility] Comment on above: Performed By: #### L IPA2, CHEM7F, ACBC, LIVR, DDIMER #### Testing performed at [address] [address] ABSOLUTE EOS 0.1 10*3/uL Normal 0.0-0.7 [facility] Comment on above: Performed By: #### L IPA2, CHEM7F, ACBC, LIVR, DDIMER #### Testing performed at [address] [address] ABSOLUTE NEUTROPHIL COUNT 4.7 10*3/uL Normal 1.4-6.5 [facility] Comment on above: Performed By: #### L IPA2, CHEM7F, ACBC, LIVR, DDIMER #### Testing performed at [address] [address] Basophils/100 WBC (Bld) 0.5 % Normal 0.0-2.0 [facility] Comment on above: Performed By: #### L IPA2, CHEM7F, ACBC, LIVR, DDIMER #### Testing performed at [address] [address] DTYPE AUTO DIFF Normal [facility] Comment on above: Performed By: #### L IPA2, CHEM7F, ACBC, LIVR, DDIMER #### Testing performed at [address] [address] Eosinophils/100 WBC (Bld) 1.3 % Normal 0.0-11.0 [facility] Comment on above: Performed By: #### L IPA2, CHEM7F, ACBC, LIVR, DDIMER #### Testing performed at [address] [address] Lymphocytes (Bld) [#/Vol] 2.1 10*3/uL Normal 1.2-3.4 [facility] Comment on above: Performed By: #### L IPA2, CHEM7F, ACBC, LIVR, DDIMER #### Testing performed at [address] [address] Lymphocytes/100 WBC (Bld) 27.5 % Normal 20.0-55.0 [facility] Comment on above: Performed By: #### L IPA2, CHEM7F, ACBC, LIVR, DDIMER #### Testing performed at [address] [address] Monocytes (Bld) [#/Vol] 0.8 10*3/uL High 0.0-0.7 [facility] Comment on above: Performed By: #### L IPA2, CHEM7F, ACBC, LIVR, DDIMER #### Testing performed at [address] [address] Monocytes/100 WBC (Bld) 10.7 % High 0.0-10.0 [facility] Comment on above: Performed By: #### L IPA2, CHEM7F, ACBC, LIVR, DDIMER #### Testing performed at [address] [address] Neutrophils/100 WBC (Bld) 60.0 % Normal 37.0-75.0 [facility] Comment on above: Performed By: #### L IPA2, CHEM7F, ACBC, LIVR, DDIMER #### Testing performed at [address] [address] Erythrocyte distribution width (RBC) [Ratio] 12.9 % Normal 11.5-14.5 [facility] Comment on above: Performed By: #### L IPA2, CHEM7F, ACBC, LIVR, DDIMER #### Testing performed at [address] [address] Hematocrit (Bld) [Volume fraction] 38.5 % Normal 36.0-48.0 [facility] Comment on above: Performed By: #### L IPA2, CHEM7F, ACBC, LIVR, DDIMER #### Testing performed at [address] [address] Hemoglobin (Bld) [Mass/Vol] 13.2 g/dL Normal 12.0-16.0 [facility] Comment on above: Performed By: #### L IPA2, CHEM7F, ACBC, LIVR, DDIMER #### Testing performed at [address] [address] MCH (RBC) [Entitic mass] 30.1 pg Normal 26.0-35.0 [facility] Comment on above: Performed By: #### L IPA2, CHEM7F, ACBC, LIVR, DDIMER #### Testing performed at [address] [address] MCHC (RBC) [Mass/Vol] 34.3 g/dL Normal 27.0-37.0 [facility] Comment on above: Performed By: #### L IPA2, CHEM7F, ACBC, LIVR, DDIMER #### Testing performed at [address] [address] MCV (RBC) [Entitic vol] 87.7 fL Normal 80.0-100.0 [facility] Comment on above: Performed By: #### L IPA2, CHEM7F, ACBC, LIVR, DDIMER #### Testing performed at [address] [address] Platelet mean volume (Bld) [Entitic vol] 8.2 fL Normal 7.4-11.0 [facility] Comment on above: Performed By: #### L IPA2, CHEM7F, ACBC, LIVR, DDIMER #### Testing performed at [address] [address] Platelets (Bld) [#/Vol] 311 10*3/uL Normal 130-400 [facility] Comment on above: Performed By: #### L IPA2, CHEM7F, ACBC, LIVR, DDIMER #### Testing performed at [address] [address] RBC (Bld) [#/Vol] 4.39 10*6/uL Normal 4.0-5.4 [facility] Comment on above: Performed By: #### L IPA2, CHEM7F, ACBC, LIVR, DDIMER #### Testing performed at [facility] [address] [facility] [place] [address] WBC (Bld) [#/Vol] 7.8 10*3/uL Normal 3.6-11.0 [facility] Comment on above: Performed By: #### L IPA2, CHEM7F, ACBC, LIVR, DDIMER #### Testing performed at [id number] [place] [address] CBC, EDIF, PLATELETon 2024 ABSOLUTE BASOPHIL COUNT 0.0 10*3/uL 0.0 - 0.2 10*3/uL [facility] Basophils/100 WBC (Bld) 0.5 % 0.0 - 2.0 % [facility] Differential cell count method Nom (Bld) AUTO DIFF % [facility] Eosinophils (Bld) [#/Vol] 0.1 10*3/uL 0.0 - 0.7 10*3/uL [facility] Eosinophils/100 WBC (Bld) 1.3 % 0.0 - 11.0 % [facility] Erythrocyte distribution width (RBC) [Ratio] 12.9 % 11.5 - 14.5 % [facility] Hematocrit (Bld) [Volume fraction] 38.5 % 36.0 - 48.0 % [facility] Hemoglobin (Bld) [Mass/Vol] 13.2 g/dL [facility] Interpretation and review of laboratory results Abnormal [facility] Lymphocytes (Bld) [#/Vol] 2.1 10*3/uL 1.2 - 3.4 10*3/uL [facility] Lymphocytes/100 WBC (Bld) 27.5 % 20.0 - 55.0 % [facility] MCH (RBC) [Entitic mass] 30.1 pg 26.0 - 35.0 PG [facility] MCHC (RBC) [Mass/Vol] 34.3 g/dL [facility] MCV (RBC) [Entitic vol] 87.7 fL [facility] Monocytes (Bld) [#/Vol] 0.8 10*3/uL High 0.0 - 0.7 10*3/uL [facility] Monocytes/100 WBC (Bld) 10.7 % High 0.0 - 10.0 % [facility] Neutrophils (Bld) [#/Vol] 4.7 10*3/uL 1.4 - 6.5 10*3/uL [facility] Neutrophils/100 WBC (Bld) 60.0 % 37.0 - 75.0 % [facility] Platelet mean volume (Bld) [Entitic vol] 8.2 fL [facility] Platelets (Bld) [#/Vol] 311 10*3/uL 130 - 400 10*3/uL [facility] RBC (Bld) [#/Vol] 4.39 10*6/uL 4.0 - 5.4 10*6/uL [facility] WBC (Bld) [#/Vol] 7.8 10*3/uL 3.6 - 11.0 10*3/uL [facility] CHEM 7 FASTINGon 10-15-2024 Chloride [Moles/Vol] 106 mmol/L Normal 98-107 [facility] Comment on above: Result Comment: Abiel paris note: Triglyceride levels of 600mg/dL or higher may positively bias chloride results by approximately 2.1 mmol Performed By: #### L IPA2, CHEM7F, ACBC, LIVR, DDIMER #### [place] [address] CO2 [Moles/Vol] 24 mmol/L Normal 22-[address] [facility] Comment on above: Performed By: #### L IPA2, CHEM7F, ACBC, LIVR, DDIMER #### [place] [address] Creatinine [Mass/Vol] 0.60 mg/dL Low 0.70-1.20 [facility] Comment on above: Performed By: #### L IPA2, CHEM7F, ACBC, LIVR, DDIMER #### [place] [address] GFR Information Average GFR for 18-2 9 years old = 116. Normal [facility] Comment on above: Result Comment: Continuous Pillowcase Cutter reena Kidney disease, GFR = <60. Kidney failure, GFR = <15. The GFR estimate is not adjusted for extreme body surface area or acute process, nor has it been validated for women or ethnic groups other than and . MDRD Equation Performed By: #### L IPA2, CHEM7F, ACBC, LIVR, DDIMER #### Testing performed at [address] [address] GFR/1.73 sq M.predicted MDRD (S/P/Bld) [Vol rate/Area] 133 mL/min/{1.73_m2} Normal [facility] Comment on above: Performed By: #### L IPA2, CHEM7F, ACBC, LIVR, DDIMER #### Testing performed at [address] [address] Glucose [Mass/Vol] 97 mg/dL Normal 70-100 [facility] Comment on above: Result Comment: NORMAL <100 mg/dL PREDIABETES 101-126 mg/dL DIABETES 126 mg/dL or higher Performed By: #### L IPA2, CHEM7F, ACBC, LIVR, DDIMER #### Testing performed at [address] [address] Potassium [Moles/Vol] 4.4 mmol/L Normal 3.5-5.1 [facility] Comment on above: Performed By: #### L IPA2, CHEM7F, ACBC, LIVR, DDIMER #### Testing performed at [address] [address] Sodium [Moles/Vol] 138 mmol/L Normal 137-145 [facility] Comment on above: Performed By: #### L IPA2, CHEM7F, ACBC, LIVR, DDIMER #### Testing performed at [address] [address] Urea nitrogen [Mass/Vol] 11 mg/dL Normal 7-20 [facility] Comment on above: Performed By: #### L IPA2, CHEM7F, ACBC, LIVR, DDIMER #### Testing performed at [address] [address] CHEM 7 (LYTES,BUN,CREA,GLUC) on 10-15-2024 Chloride [Moles/Vol] 106 mmol/L [facility] Comment on above: Please note: Triglyc eride levels of 600mg/dL or higher may positively bias chloride results by approximately 2.1 mmol CO2 [Moles/Vol] 24 mmol/L [facility] Creatinine [Mass/Vol] 0.60 mg/dL Low 0.70 - 1.20 mg/dL [facility] GFR COMMENT Average GFR for 18-2 9 years old = 116. [employer] Comment on above: Chronic Kidney disea se, GFR = <60. Kidney failure, GFR = <15. The GFR estimate is not adjusted for extreme body surface area or acute process, nor has it been validated for women or ethnic groups other than and . MDRD Equation GFR/1.73 sq M.predicted MDRD (S/P/Bld) [Vol rate/Area] 133 mL/min/{1.73_m2} ml/min/1.73s q.m [facility] Glucose post fast [Mass/Vol] 97 mg/dL [facility] Comment on above: NORMAL <100 mg/dL PREDIABETES 101-126 mg/dL DIABETES 126 mg/dL or higher Interpretation and review of laboratory results Abnormal [employer] Potassium [Moles/Vol] 4.4 mmol/L [facility] Sodium [Moles/Vol] 138 mmol/L [facility] Urea nitrogen [Mass/Vol] 11 mg/dL 7 - 20 mg/dL [facility] HEAD WITHOUT CONTRASTon 0 10-15-2024 CT HEAD WITHOUT CONTRAST EXAMINATION: CT HEAD WITHOUT CONTRAST INDICATION: 24 years old; Female. Headache. TECHNIQUE: CT Head (ax/cor/sag reformats). Ionizing radiation dose reduced via iterative reconstruction/FBP blend and body size kV/mA adjustment. Comparison: None FINDINGS: POSTOPERATIVE CHANGES: None. BRAIN PARENCHYMA: No intraparenchymal or extra-axial hemorrhage. No mass effect. No midline shift or herniation. Normal gleason/white differentiation. VENTRICLES/EXTRA-AXIA L SPACES: Normal for patient's age. SINUSES/MASTOIDS: The sinuses are clear although the maxillary sinuses are not completely included in the examination. Raissa bullosa on the right. The mastoids and middle ears are clear. MSK: No displaced or depressed calvarial fracture. OTHER: No hyperdense intraluminal thrombus is present. IMPRESSION: 1. No acute intracranial abnormality. No hemorrhage or mass effect. Normal [facility] CT Head WO contraston 2024 IMPRESSION: 1. No acute intracranial abnormality. No hemorrhage or mass effect. RADIOLOGY EXAMINATION: CT HEAD WITHOUT CONTRAST INDICATION: 24 years old; Female. Headache. TECHNIQUE: CT Head (ax/cor/sag reformats). Ionizing radiation dose reduced via iterative reconstruction/FBP blend and body size kV/mA adjustment. Comparison: None FINDINGS: POSTOPERATIVE CHANGES: None. BRAIN PARENCHYMA: No intraparenchymal or extra-axial hemorrhage. No mass effect. No midline shift or herniation. Normal gleason/white differentiation. VENTRICLES/EXTRA-AXIA L SPACES: Normal for patient's age. SINUSES/MASTOIDS: The sinuses are clear although the maxillary sinuses are not completely included in the examination. Raissa bullosa on the right. The mastoids and middle ears are clear. MSK: No displaced or depressed calvarial fracture. OTHER: No hyperdense intraluminal thrombus is present. RADIOLOGY Napoleon Kendall M D - 10/15/2024 EXAMINATION: CT HEAD WITHOUT CONTRAST INDICATION: 24 years old; Female. Headache. TECHNIQUE: CT Head (ax/cor/sag reformats). Ionizing radiation dose reduced via iterative reconstruction/FBP blend and body size kV/mA adjustment. Comparison: None FINDINGS: POSTOPERATIVE CHANGES: None. BRAIN PARENCHYMA: No intraparenchymal or extra-axial hemorrhage. No mass effect. No midline shift or herniation. Normal gleason/white differentiation. VENTRICLES/EXTRA-AXIA L SPACES: Normal for patient's age. SINUSES/MASTOIDS: The sinuses are clear although the maxillary sinuses are not completely included in the examination. Raissa bullosa on the right. The mastoids and middle ears are clear. MSK: No displaced or depressed calvarial fracture. OTHER: No hyperdense intraluminal thrombus is present. IMPRESSION IMPRESSION: 1. No acute intracranial abnormality. No hemorrhage or mass effect. [facility] Radiology Study observation (narrative) [facility] CT Head WO contrastOrdered B y: Napoleon Kendall on 10-15-2024 [facility] Work Phone: D DIMERon 10-15-2024 D DIMER <0.27 Normal <0.50 [facility] Comment on above: Result Comment: If r esult is greater than the cutoff value of 0.50 ?g/ml then the potential for PE or DVT exists. Other conditions exist which may cause a falsely elevated level. Please correlate clinically, including radiological findings and other clinical parameters. Performed By: #### L IPA2, CHEM7F, ACBC, LIVR, DDIMER #### Testing performed at [address] [address] D-DIMER,QUANTITATIVEon 10-15 Fibrin D-dimer FEU (PPP) [Mass/Vol] <0.27 NINF [facility] Comment on above: If result is greater than the cutoff value of 0.50 g/ml then the potential for PE or DVT exists. Other conditions exist which may cause a falsely elevated level. Please correlate clinically, including radiological findings and other clinical parameters. [facility] HEPATIC FUNCTION PANELon Albumin [Mass/Vol] 4.1 g/dL [facility] ALP [Catalytic activity/Vol] 125 U/L 38 - 126 U/L [facility] ALT [Catalytic activity/Vol] 12 U/L NINF - 35 U/L [facility] AST [Catalytic activity/Vol] 20 U/L 14 - 36 U/L [facility] Bilirubin [Mass/Vol] 0.2 mg/dL 0.2 - 1 .3 mg/dL [facility] Bilirubin.direct [Mass/Vol] 0.1 mg/dL [facility] Protein [Mass/Vol] 6.9 g/dL 6.3 - 8.2 g/dL [facility] INFLUENZA A AND B, PCRon FLUAV and FLUBV Ag IF Nom (Unsp spec) Negative NEGATIVE [facility] FLUBV Ag IA Ql (Unsp spec) Negative NEGATIVE [facility] Comment on above: TESTING PERFORMED BY [facility] LIPASEon 10-15-2024 Lipase [Catalytic activity/Vol] 88 U/L 23 - 300 U/L [facility] LIPASE,SERUMon 10-15-2024 LIPASE,SERUM 88 U/L Normal 23-300 [facility] Comment on above: Performed By: #### L IPA2, CHEM7F, ACBC, LIVR, DDIMER #### Testing performed at [address] [address] LIVER PANELon 10-15-2024 ALT [Catalytic activity/Vol] 12 U/L Normal <35 [facility] Comment on above: Performed By: #### L IPA2, CHEM7F, ACBC, LIVR, DDIMER #### Testing performed at [address] [address] AST [Catalytic activity/Vol] 20 U/L Normal 14-36 [facility] Comment on above: Performed By: #### L IPA2, CHEM7F, ACBC, LIVR, DDIMER #### Testing performed at [address] [address] Albumin [Mass/Vol] 4.1 g/dL Normal 2.9-5.3 [facility] Comment on above: Performed By: #### L IPA2, CHEM7F, ACBC, LIVR, DDIMER #### Testing performed at [address] [address] ALP [Catalytic activity/Vol] 125 U/L Normal 38-126 [facility] Comment on above: Performed By: #### L IPA2, CHEM7F, ACBC, LIVR, DDIMER #### Testing performed at [address] [address] Bilirubin [Mass/Vol] 0.2 mg/dL Normal 0.2-1.3 [facility] Comment on above: Performed By: #### L IPA2, CHEM7F, ACBC, LIVR, DDIMER #### Testing performed at [address] [address] Bilirubin.indirect [Mass/Vol] 0.1 mg/dL Normal 0.0-0.4 [facility] Comment on above: Performed By: #### L IPA2, CHEM7F, ACBC, LIVR, DDIMER #### Testing performed at [address] [address] Protein [Mass/Vol] 6.9 g/dL Normal 6.3-8.2 [facility] Comment on above: Performed By: #### L IPA2, CHEM7F, ACBC, LIVR, DDIMER #### Testing performed at [address] [address] NOVEL CORONAVIRUSon 10-16-19 25 NARRATIVE This test was performed using isothermal LINDSAY for the qualitative detection of SARS-CoV-2 nucleic acid. Normal [facility] Comment on above: Performed By: #### C OVID #### Testing performed at [place] [id number] SARS-CoV-2 (COVID-19) RNA LINDSAY+probe Ql (Unsp spec) Not detected Normal NOT DETECTED [facility] Comment on above: Result Comment: Nega tive results do not preclude SARS-CoV-2 infection and should not be used as the sole basis for treatment or other patient management decisions. Optimum specimen types and timing for peak viral levels during infections caused by SARS-CoV-2 has not been determined. The possibility of a false negative result should especially be considered if the patient's recent exposures or clinical presentation suggest that SARS-CoV-2 infection is probable, and diagnostic tests for other causes of illness (e.g., other respiratory illness) are negative. Collection of a new specimen and re-testing may be necessary if the patient is critically ill or clinically deteriorating. Performed By: #### C OVID #### Testing performed at [address] [address] NOVEL CORONAVIRUS LAB 1 - NA SOPHARYNGEALon 10-15-2024 SARS-CoV-2 (COVID-19) RNA LINDSAY+probe Ql (Unsp spec) Not detected NOT DETECTED [facility] Comment on above: Negative results do not preclude SARS-CoV-2 infection and should not be used as the sole basis for treatment or other patient management decisions. Optimum specimen types and timing for peak viral levels during infections caused by SARS-CoV-2 has not been determined. The possibility of a false negative result should especially be considered if the patient's recent exposures or clinical presentation suggest that SARS-CoV-2 infection is probable, and diagnostic tests for other causes of illness (e.g., other respiratory illness) are negative. Collection of a new specimen and re-testing may be necessary if the patient is critically ill or clinically deteriorating. SARS-CoV-2 (COVID-19) RNA LINDSAY+probe Ql (Unsp spec) This test was performed using isothermal LINDSAY for the qualitative detection of SARS-CoV-2 nucleic acid. [facility] No Panel Informationon 10-15 [facility] RAPID FLU Aon 08-23-2025 INFLUENZA A Negative Normal NEGATIVE [facility] Comment on above: Performed By: #### L IPA2, CHEM7F, ACBC, LIVR, DDIMER #### Testing performed at [address] [address] INFLUENZA B Negative Normal NEGATIVE [facility] Comment on above: Result Comment: TEST ING PERFORMED BY LINDSAY Performed By: #### L IPA2, CHEM7F, ACBC, LIVR, DDIMER #### Testing performed at [place] [id number] TROPONIN I, HIGH SENSITIVITY on 10-15-2024 TROPONIN I, HIGH SENSITIVITY <2 0 - 12 pg/mL [facility] Comment on above: Indeterminant: >12 to 100 pg/mL female >20 to 100 pg/mL male Indicative of myocardial injury. Serial sampling is recommended, a change of greater than or equal to 20 pg/mL is indicative of acute coronary syndrome. [facility] TROPONIN I, HIGH SENSITIVITY <2 Normal 0-12 [facility] Comment on above: Result Comment: Indeterminant: >12 to 100 pg/mL female >20 to 100 pg/mL male Indicative of myocardial injury. Serial sampling is recommended, a change of greater than or equal to 20 pg/mL is indicative of acute coronary syndrome. Performed By: #### T ROHS #### Testing performed at [place] [id number] Chest PA and Lateralon 08-12 Chest PA and Lateral [facility] [address] [place], [place] [address] Chest PA and Lateral MR#: [id number] Acct: [id number] Name: LIN DECKER Rep #: [id number] : 2000 F 24 From: Bharti samuel MD PCP: Care Physician,No Primary Status: PRE ER Study: Chest PA and Lateral Date of Exam: 08/12/24 Exam# [id number] Ordering Dr: Librado Riley DO PROCEDURE: CHEST PA AND LATERAL 08/12/2024 REASON FOR EXAM: COUGH TECHNIQUE: CHEST PA AND LATERAL COMPARISON: None. FINDINGS: The lungs are expanded. There is no demonstrated parenchymal abnormality. There is no demonstrated pleural abnormality. Normal heart and pericardium. Normal mediastinum and elie. Normal visualized pulmonary arteries. Normal visualized aortic arch and descending thoracic aorta. Normal visualized thoracic spine. Normal visualized ribs, clavicles, and shoulders. There is no demonstrated abnormality of the visualized soft tissue structures of the upper abdomen. RAD/Chest PA and Lateral IMPRESSION: No evidence for acute abnormality. Reading [facility] CC: Librado Riley DO; No Primary Care Physician [employer]: Signed Normal [facility] Emergency Department Summary on 08-12-2024 Emergency Department Summary [facility] Medical Records Department [address] [place] [address] Emergency Department Summary 08/12/24 MR#: [id number] Acct: [id number] Name: LIN DECKER Rep #: [id number] : 2000 24 From: Librado Riley DO PCP: Care Physician,No Primary Status:DEP ER Location: ED HPI History of Present Illness Chief Complaint: Cold Sx Informant: patient Narrative Narrative: Patient is a 24-year-old female with past medical history of vaping. She states 2 to 3 weeks ago she had cough and congestion and was seen in urgent care and diagnosed with bronchitis. She states that after 7 to 10 days she got better from this. However in the last 2 to 3 days she has had return of nasal congestion sore throat and cough and this time feels short of breath. She denies any history of asthma but does admit to vaping. With her return of symptoms that she states are more intense/severe than the previous she presents for evaluation [facility] Medical History no medical history Home Medications ???Medication ???Instructions ???Recorded ???Last Taken ???Type azelastine 137 mcg (0.1 %) nasal 2 spray intranasal BID #30 mL 07/25 Unknown Rx spray prednisone 20 mg tablet 40 mg (2 x 20 mg) PO DAILY 5 days 08/12/24 Unknown Rx #10 tabs Allergy/AdvReac Type Severity Reaction Status Date / Time amoxicillin Allergy Mild Rash Verified 08/11/24 23:05 Social History Smoking Status: Current every day smoker tobacco type: e-cigarettes ROS ROS ED Constitutional Constitutional ED: Denies chills or fever(s) Eyes Eyes: Denies change in vision ENT ENT ED: Reports rhinorrhea and sore throat Cardiovascular Cardiovascular: Denies chest pain Respiratory/Chest Respiratory/Chest: Reports cough and dyspnea Gastrointestinal Gastrointestinal: Denies abdominal pain, diarrhea, nausea or vomiting Genitourinary Genitourinary ED: Denies dysuria Musculoskeletal Musculoskeletal: Denies myalgias Integumentary Denies rash Neurologic Neurologic: Denies headache(s) Hematologic/Lymphatic Hematologic/Lymphatic : Denies easy bleeding or easy bruising Allergic/Immunologic Allergic/Immunologic ED: Denies mouth swelling or tongue swelling EXAM Physical Exam Const Vital Signs: 08/11/24 23:05 08/12/24 00:17 08/12/24 01:44 Temperature 97.5 F L 98.0 F Temperature Source Temporal Pulse Rate 86 84 80 Respiratory Rate 18 18 18 Respiratory Pattern Normal Blood Pressure 152/109 H 131/9 H Blood Pressure Mean 123 49 Pulse Ox 98 100 Oxygen Delivery Method Room Air Positive well nourished and well developed General Appearance ED: well developed; Negative for pallor HEENT HEENT Narrative: Bilateral TMs are retracted but show no secondary findings to suggest infection Nasal mucosa is hyperemic and boggy with enlarged inferior nasal turbinates There is cobblestoning in the posterior pharynx consistent with sinus drainage without airway edema or compromise; no secondary findings to suggest infection Eyes PERRL and EOMs intact bilaterally Neck supple and no JVD Neck Narrative: No nuchal rigidity or meningeal signs Resp normal respiratory effort Resp Narrative: Breath sounds are diminished throughout with faint expiratory wheeze in the bilateral lower lobes however no nasal flaring retractions tachypnea or accessory muscle use Cardio regular rate and regular rhythm Extremity normal to inspection Extremity Narrative: No asymmetric edema no pitting edema negative Homans' sign bilaterally Neuro oriented x3, CN's II-XII intact bilaterally and no sensory deficits noted Sensorium / Orientation: alert Motor Exam: strength 5/5 throughout Psych mental status grossly normal Skin no rashes or lesions noted and no wounds General Skin Exam: Negative for jaundice or pallor MDM MDM MDM Narrative Medical decision making narrative: Patient arrived to the ER hypertensive otherwise with stable vitals. She reported being sick for roughly 2 weeks with symptom improvement only to be sick once again. Differential diagnosis is for upper respiratory tract infection versus potential lung pathology such as pneumonia. As the patient is young and healthy without history of immunosuppression or showing lines of respiratory distress or need for supplemental oxygen I do not feel the need for testing other than chest x-ray to rule out pneumonia or potential pneumothorax. X-ray revealed no acute lung pathology and after receiving Decadron and a DuoNeb breathing treatment she had improvement of her breath sounds and reported feeling better. Therefore as workup is negative she is not in respiratory distress or showing signs of systemic infection she is otherwise safe for discharge with symptomatic care History Record Review Discussi (more content not included)... Normal [facility] POCT INFLUENZA, A Bon 2024 FLUAV RNA LINDSAY+probe Ql (Unsp spec) Negative Negative, Not Tested, Invalid, Not Detected [facility] FLUBV RNA LINDSAY+probe Ql (Unsp spec) Negative Negative, Not Tested, Invalid, Not Detected [facility] Interpretation and review of laboratory results Normal [facility] Controls valid [facility] SARS-COV-2 RAPID AG (WIC)on 07-26-2024 SARS-CoV-2 (COVID-19) RNA LINDSAY+probe Ql (Unsp spec) Not detected Normal NOT DETECTED [facility] Comment on above: Result Comment: Nega tive results should be treated as presumptive and confirmation with a molecular assay, if necessary, for patient management, may be performed. Negative results do not rule out SARSCoV-2 infection and should not be used as the sole basis for treatment or patient management decisions, including infection control decisions. Negative results should be considered in the context of a patient's recent exposures, history and the presence of clinical signs and symptoms consistent with COVID-19. Performed By: #### C COVAG #### [place] [address] NARRATIVE This test was performed using lateral flow immunoassay. This test does not differentiate between SARS-CoV and SARS-CoV2. Normal [facility] Comment on above: Performed By: #### C COVAG #### [place] [address] SARS-COV-2 RAPID ANTIGEN (CL INIC ONLY)on 07-26-2024 SARS-CoV-2 (COVID-19) RNA LINDSAY+probe Ql (Unsp spec) This test was performed using lateral flow immunoassay. This test does not differentiate between SARS-CoV and SARS-CoV2. [facility] SARS-CoV-2 (COVID-19) RNA NA A+probe Ql (Unsp spec)on 07-26-2024 SARS-CoV-2 (COVID-19) Ag IA.rapid Ql (Resp) Not detected NOT DETECTED [facility] Comment on above: Negative results nessa uld be treated as presumptive and confirmation with a molecular assay, if necessary, for patient management, may be performed. Negative results do not rule out SARSCoV-2 infection and should not be used as the sole basis for treatment or patient management decisions, including infection control decisions. Negative results should be considered in the context of a patient's recent exposures, history and the presence of clinical signs and symptoms consistent with COVID-19. [facility] CBC panel Auto (Bld)on 07-11 Erythrocyte distribution width (RBC) [Ratio] 12.0 % Normal 11.5-15.0 [facility] Comment on above: Order Comment: Andrzej jang Type: BLOOD SPECIMEN Ordering Facility: [facility] Address: [address] [place] [address] Performed By: #### 5 8410-2 #### [facility] CLIA [id number] [address] [place] [address] [place] Hematocrit (Bld) [Volume fraction] 41.4 % Normal 39.0-51.0 [facility] Comment on above: Order Comment: Andrzej jang Type: BLOOD SPECIMEN Ordering Facility: [facility] Address: [address] [place] [address] Performed By: #### 5 8410-2 #### [facility] CLIA [id number] [address] [place] [address] [place] Hemoglobin (Bld) [Mass/Vol] 13.8 g/dL Normal 13.0-17.0 [facility] Comment on above: Order Comment: Andrzej jang Type: BLOOD SPECIMEN Ordering Facility: [facility] Address: [address] [place] [address] Performed By: #### 5 8410-2 #### [facility] CLIA [id number] [address] [place] [address] [place] MCH (RBC) [Entitic mass] 30.0 pg Normal 26.0-34.0 [facility] Comment on above: Order Comment: Speci men Type: BLOOD SPECIMEN Ordering Facility: [facility] Address: [address] [place] [address] Performed By: #### 5 8410-2 #### [facility] CLIA [id number] [address] [place] [address] [place] MCHC (RBC) [Mass/Vol] 33.3 g/dL Normal 30.5-36.0 [facility] Comment on above: Order Comment: Speci men Type: BLOOD SPECIMEN Ordering Facility: [facility] Address: [address] [place] [address] Performed By: #### 5 8410-2 #### [facility] CLIA [id number] [address] [place] [address] [place] MCV (RBC) [Entitic vol] 90.0 fL Normal 80.0-100.0 [facility] Comment on above: Order Comment: Speci men Type: BLOOD SPECIMEN Ordering Facility: [facility] Address: [address] [place] [address] Performed By: #### 5 8410-2 #### [facility] CLIA [id number] [address] [place] [address] [place] Nucleated RBC (Bld) [#/Vol] 10*3/uL Normal <0.01 [facility] Comment on above: Order Comment: Speci men Type: BLOOD SPECIMEN Ordering Facility: [facility] Address: [address] [place] [address] Performed By: #### 5 8410-2 #### [facility] CLIA [id number] [address] [place] [address] [place] Platelet mean volume (Bld) [Entitic vol] 10.3 fL Normal 9.0-12.7 [facility] Comment on above: Order Comment: Speci men Type: BLOOD SPECIMEN Ordering Facility: [facility] Address: [address] [place] [address] Performed By: #### 5 8410-2 #### [facility] CLIA [id number] [address] [place] [address] [place] Platelets (Bld) [#/Vol] 371 10*3/uL Normal 150-400 [facility] Comment on above: Order Comment: Speci men Type: BLOOD SPECIMEN Ordering Facility: [facility] Address: [address] [place] [address] Performed By: #### 5 8410-2 #### [facility] CLIA [id number] [address] [place] [address] [place] RBC (Bld) [#/Vol] 4.60 10*6/uL Normal 4.20-6.00 [facility] Comment on above: Order Comment: Speci men Type: BLOOD SPECIMEN Ordering Facility: [facility] Address: [address] [place] [address] Performed By: #### 5 8410-2 #### [facility] CLIA [id number] [address] [place] [address] [place] WBC (Bld) [#/Vol] 8.56 10*3/uL Normal 3.70-11.00 [facility] Comment on above: Order Comment: Speci men Type: BLOOD SPECIMEN Ordering Facility: [facility] Address: [address] [place] [address] Performed By: #### 5 8410-2 #### [facility] CLIA [id number] [address] [place] [address] [place] CNOVon 07-11-2024 CNOV Office Visit (NE50MN ) LIN DECKER ([id number]) 4 F Date Time Provider Department 07/11/24 3:30 PM ADOLFO ANDERSON NE50MN During your visit today, we recorded the following information about you: Pulse Respiration Blood pressure Weight 79/minute 18/minute 145/90 68 kg Height 1.727 m Adolfo Anderson MD 07/11/2024 4:27 PM Addendum Continue taking ethosuximide at your current dose (500 mg in the morning and 750 mg at night). Labs: including ethosuximide levels, CBC, and CMP Continue with folic acid supplementation. If you decide to pursue welding, be sure to use protective equipment (such as appropriate shielding glasses) to minimize exposure to bright flashes that might trigger seizures. Schedule a follow?up appointment in one year -- [facility] with Dr. Berta Vargas, Gurdeep Liz MD 07/13/2024 9:45 AM Signed [facility] Patient Name: Lin SÁNCHEZ Date of : 2000 INITIAL EPILEPSY CLINIC NOTE 07/11/2024 3:30 PM CHIEF COMPLAINT: New Patient and Epilepsy HISTORY OF PRESENT ILLNESS Brianne is a 24 year old right-handed adult seen in [facility] for initial consultation. Handedness: right-handed Age of onset: Seizure History and Evolution Lin is a 24-year-old female with a history of childhood absence epilepsy, previously followed with Dr. Velasquez, now presenting to establish care in adult clinic. 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 Her mother, who is present at the visit, describes these episodes as looking drugged. She also had learning difficulties in school and had an IEP/took special education classes. Lin was initially treated with Depakote and Keppra. Depakote was effective but discontinued due to concerns about reaching pubertal age. Keppra caused aggression. Once establishing care with Dr. Velasquez, she was switched to ethosuximide and has been seizure-free since age 14 or 15. She is currently taking ethosuximide 500 mg in the morning and 750 mg at night, which she tolerates well without any reported side effects. Mother denies any history of convulsive seizures, though she had 1 brief generalized myoclonic seizure during photic stimulation during a routine EEG in 2013. 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 She is also interested in pursuing welding. She does not drive. She is not planning to be at this time, though does want children at some point in the future. She takes daily folic acid and vitamin D. Epilepsy risk factors include being born premature at 28 weeks as mother had pre-eclampsia. Sister also had 1 lifetime convulsive seizure at age 4, unprovoked Total # of Current Anti-seizure Medications: Side Effects to Current Anti-seizure Medications: Seizure Frequency at First Visit: Longest Seizure-free Interval: CURRENT OUTPATIENT ANTISEIZURE MEDICATIONS (as of the start of the encounter) ethosuximide (ZARONTIN) 250 mg capsule Take (2) tablets by mouth in the AM and (3) tablets in the PM (=1250 mg/d) Prior Anti-seizure Therapies: Trial Adequacy: Max Daily Dose Achieved: Side Effects: Effectiveness: Comments: Ethosuximide Levetiracetam Valproate Comorbidities: Episode Description: SEIZURE TYPE 1: Absence spells Aura: no Description: Staring spells lasting seconds, feels like she can't move during it. Feels tired afterwards. Last episode was at ~14 years of age (2014) Loss of awareness: Duration: Frequency: Last occurred: yes less than a minute Patient Entered Data: EPILEPSY SCORE 07/11/2024 1:16 PM 07/11/2024 1:15 PM 07/11/2024 1:14 PM First answer obtained - 07/11/2024 1:10 PM PHQ-9 SCORE - - - - KARIME 2 SCORE 0 [Negative Anxiety Screen] - - - KARIME 7 SCORE - - - - QOLIE-10 SCORE (0=worst; 100=best QoL - higher scores represent better function) - - - - LSSS SCORE (0- no seizures 100- most severe possible seizures) - - - - C-SSRS SCREEN - - - - On average, how many hours of sleep do you get in a 24-hour period? - 10 - - PROMIS Sleep Disturbance T-SCORE - - - 54 [within normal limits] Have you been diagnosed with Sleep Apnea? - No - - Seizure risk factors: Brain Tumor Unanswered DEAL ARCHITECT Infections Unanswered Developmental Delay Unanswered Family history of seizures Yes Febrile Seizure Unanswered Complications Unanswered Stroke No Traumatic Brain Injury Unanswered Previous Epilepsy Evaluations Routine EEG ([facility], 07/01/2022) Classifications: Abnormal I (10-20 Scalp Electrodes, Anterior Temporal Electrodes, Photic Stimulation, Tactile Stimulation, Auditory Stimulation, Hyperventilation, Awake, Sleep) Interictal: Intermittent Slow, Generalized, Maximum, Bilateral (more content not included)... Normal [facility] Comprehensive metabolic 2000 panelon 07-11-2024 Albumin [Mass/Vol] 4.5 g/dL Normal 3.9-4.9 [facility] Comment on above: Order Comment: Andrzej jang Type: BLOOD SPECIMEN Ordering Facility: [facility] Address: [address] [place] [address] Performed By: #### 2 4323-8 #### [facility] CLIA [id number] [address] [place] [address] [place] ALP [Catalytic activity/Vol] 169 U/L High 38-113 [facility] Comment on above: Order Comment: Andrzej jang Type: BLOOD SPECIMEN Ordering Facility: [facility] Address: [address] [place] [address] Performed By: #### 2 4323-8 #### [facility] CLIA [id number] [address] [place] [address] [place] ALT [Catalytic activity/Vol] 11 U/L Normal 10-54 [facility] Comment on above: Order Comment: Christinai suhail Type: BLOOD SPECIMEN Ordering Facility: [facility] Address: [address] [place] [address] Performed By: #### 2 4323-8 #### [facility] CLIA [id number] [address] [place] [address] [place] Anion gap [Moles/Vol] 12 mmol/L Normal 8-15 [facility] Comment on above: Order Comment: Speci men Type: BLOOD SPECIMEN Ordering Facility: [facility] Address: [address] [place] [address] Performed By: #### 2 4323-8 #### [facility] CLIA [id number] [address] [place] [address] [place] AST [Catalytic activity/Vol] 18 U/L Normal 14-40 [facility] Comment on above: Order Comment: Speci men Type: BLOOD SPECIMEN Ordering Facility: [facility] Address: [address] [place] [address] Performed By: #### 2 4323-8 #### [facility] CLIA [id number] [address] [place] [address] [place] Bilirubin [Mass/Vol] 0.3 mg/dL Normal 0.2-1.3 [facility] Comment on above: Order Comment: Speci men Type: BLOOD SPECIMEN Ordering Facility: [facility] Address: [address] [place] [address] Performed By: #### 2 4323-8 #### [facility] CLIA [id number] [address] [place] [address] [place] Calcium [Mass/Vol] 10.2 mg/dL Normal 8.5-10.2 [facility] Comment on above: Order Comment: Speci men Type: BLOOD SPECIMEN Ordering Facility: [facility] Address: [address] [place] [address] Performed By: #### 2 4323-8 #### [facility] CLIA [id number] [address] [place] [address] [place] Chloride [Moles/Vol] 103 mmol/L Normal 98-107 [facility] Comment on above: Order Comment: Speci men Type: BLOOD SPECIMEN Ordering Facility: [facility] Address: [address] [place] [address] Performed By: #### 2 4323-8 #### [facility] CLIA [id number] [address] [place] [address] [place] CO2 [Moles/Vol] 24 mmol/L Normal 22-30 [facility] Comment on above: Order Comment: Speci men Type: BLOOD SPECIMEN Ordering Facility: [facility] Address: [address] [place] [address] Performed By: #### 2 4323-8 #### [facility] CLIA [id number] [address] [place] [address] [place] Creatinine [Mass/Vol] 0.77 mg/dL Normal 0.73-1.22 [facility] Comment on above: Order Comment: Speci men Type: BLOOD SPECIMEN Ordering Facility: [facility] Address: [address] [place] [address] Performed By: #### 2 4323-8 #### [facility] CLIA [id number] [address] [place] [address] [place] Creatinine and Glomerular filtration rate.predicted panel (S/P/Bld) 112 mL/min/1.73m??? Normal >=60 [facility] Comment on above: Order Comment: Speci men Type: BLOOD SPECIMEN Ordering Facility: [facility] Address: [address] [place] [address] Result Comment: Delmi mated Glomerular Filtration Rate (eGFR) is calculated using the 2020 CKD-EPI creatinine equation. This equation utilizes serum creatinine, sex, and age as parameters. The creatinine assay has traceable calibration to isotope dilution-mass spectrometry. Refer to KDIGO guidelines for clinical interpretation. In patients with unstable renal function, e.g. those with acute kidney injury, the eGFR may not accurately reflect actual GFR. Performed By: #### 2 4323-8 #### [facility] CLIA [id number] [address] [place], [place] [id number] [place] Glucose [Mass/Vol] 92 mg/dL Normal 74-99 [facility] Comment on above: Order Comment: Speci men Type: BLOOD SPECIMEN Ordering Facility: [facility] Address: [address] [place] [address] Result Comment: The [place] Diabetes Association (ADA) provides guidance for cutoff values for fasting glucose and random glucose. The ADA defines fasting as no caloric intake for at least 8 hours. Fasting plasma glucose results between 100 to 125 mg/dL indicate increased risk for diabetes (prediabetes). Fasting plasma glucose results greater than or equal to 126 mg/dL meet the criteria for diagnosis of diabetes. In the absence of unequivocal hyperglycemia, results should be confirmed by repeat testing. In a patient with classic symptoms of hyperglycemia or hyperglycemic crisis, random plasma glucose results greater than or equal to 200 mg/dL meet the criteria for diagnosis of diabetes. Reference: Standards of Medical Care in Diabetes 2016, [place] [employer]. Diabetes Care. 2016.39(Suppl 1). Performed By: #### 2 4323-8 #### [facility] CLIA [id number] [address] [place] [address] [place] Potassium [Moles/Vol] 5.1 mmol/L Normal 3.7-5.1 [facility] Comment on above: Order Comment: Andrzej jang Type: BLOOD SPECIMEN Ordering Facility: [facility] Address: [address] [place] [address] Performed By: #### 2 4323-8 #### [facility] CLIA [id number] [address] [place] [address] [place] Protein [Mass/Vol] 7.6 g/dL Normal 6.3-8.0 [facility] Comment on above: Order Comment: Christinai men Type: BLOOD SPECIMEN Ordering Facility: [facility] Address: [address] [place] [address] Performed By: #### 2 4323-8 #### [facility] CLIA [id number] [address] [place] [address] [place] Sodium [Moles/Vol] 139 mmol/L Normal 136-144 [facility] Comment on above: Order Comment: Christinai men Type: BLOOD SPECIMEN Ordering Facility: [facility] Address: [address] [place] [address] Performed By: #### 2 4323-8 #### [facility] CLIA [id number] [address] [place] [address] [place] Urea nitrogen [Mass/Vol] 16 mg/dL Normal 7-21 [facility] Comment on above: Order Comment: Speci men Type: BLOOD SPECIMEN Ordering Facility: [facility] Address: [address] [place] [address] Performed By: #### 2 4323-8 #### [facility] CLIA [id number] [address] [place] [address] [place] Ethosuximide SerPl-ncon Ethosuximide [Mass/Vol] 99.0 ug/mL Normal 40.0-100.0 [facility] Comment on above: Order Comment: Speci men Type: BLOOD SPECIMEN Ordering Facility: [facility] Address: [address] [place] [address] Result Comment: This test was developed, and its performance characteristics determined by the [facility] Department of Pathology and Laboratory Medicine. It has not been cleared or approved by the FDA. The [facility] Department of Pathology and Laboratory Medicine is regulated under CLIA as qualified to perform high-complexity testing. This test is used for clinical purposes. It should not be regarded as investigational or for research. Performed By: #### 3 616-0 #### [facility] [place] [id number] [address] [place] [address] [place] Adam 02-11-2024 CNPN Telephone (NE50MN) LIN DECKER ([id number]) 4 F Date Time Provider Department 02/11/24 JAKE VELASQUEZ NE50MN During your visit today, we recorded the following information about you: Korin Hull 02/11/2024 12:46 PM Signed Prior Authorization Needed: Received by: Fax Requested by (pharmacy name): [facility] Phone number: [phone] Name of medication: ethosuximide (ZARONTIN) 250 mg capsule Brand or Generic: Generic Strength and dosage: 250mg Quantity Override: No Insurance company name and phone #: [facility] PKEY#: [id number] BIN#: Group #: [id number] Patient of Bear Edge RN 02/11/2024 4:09 PM Signed - Was unable to complete PA via [employer] received an error message. - Called pharmacy and pharmacist states to disregard the request. - No further action required at this time. Bear Austin RN Allergies As of Date: 02/11/2024 Noted Allergy Reaction AMOXICILLIN 05/09/2013 2 - Rash Date Reviewed: 07/08/2023 Reviewed by: Dion Ann MA - Fully Assessed Reason for Visit: Medication Authorization [1699] Cmt: ethosuximide (ZARONTIN) 250 mg capsule Prescriptions as of 02/11/2024 - ethosuximide (ZARONTIN) 250 mg capsule Take (2) tablets by mouth in the AM and (3) tablets in the PM (=1250 mg/d) - folic acid 1 mg tablet Take 1 tablet by mouth once daily. 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 [facility] CBC W Auto Differential pane l (Bld)on 07-08-2023 Basophils (Bld) [#/Vol] 0.05 10*3/uL [facility] Basophils/100 WBC (Bld) 0.6 % [facility] Differential cell count method Nom (Bld) Auto [facility] Eosinophils (Bld) [#/Vol] 0.19 10*3/uL [facility] Eosinophils/100 WBC (Bld) 2.3 % [facility] Erythrocyte distribution width (RBC) [Ratio] 12.0 % 11.5 - 15.0 % [facility] Hematocrit (Bld) [Volume fraction] 40.5 % 39.0 - 51.0 % [facility] Hemoglobin (Bld) [Mass/Vol] 13.4 g/dL 13.0 - 17.0 g/dL [facility] Immature granulocytes (Bld) [#/Vol] 0.03 10*3/uL [facility] Immature granulocytes/100 WBC (Bld) 0.4 % [facility] Lymphocytes (Bld) [#/Vol] 2.06 10*3/uL [facility] Lymphocytes/100 WBC (Bld) 24.6 % [facility] MCH (RBC) [Entitic mass] 30.4 pg 26.0 - 34.0 pg [facility] MCHC (RBC) [Mass/Vol] 33.1 g/dL 30.5 - 36.0 g/dL [facility] MCV (RBC) [Entitic vol] 91.8 fL 80.0 - 100.0 fL [facility] Monocytes (Bld) [#/Vol] 0.82 10*3/uL [facility] Monocytes/100 WBC (Bld) 9.8 % [facility] Neutrophils (Bld) [#/Vol] 5.24 10*3/uL [facility] Neutrophils/100 WBC (Bld) 62.3 % [facility] Nucleated RBC (Bld) [#/Vol] [facility] Nucleated RBC/100 WBC (Bld) [Ratio] 0.0 % /100 WBC [facility] Platelet mean volume (Bld) [Entitic vol] 10.6 fL 9.0 - 12.7 fL [facility] Platelets (Bld) [#/Vol] 333 10*3/uL [facility] RBC (Bld) [#/Vol] 4.41 10*6/uL 4.20 - 6.0 0 m/uL [facility] WBC (Bld) [#/Vol] 8.39 10*3/uL [facility] Comprehensive metabolic 2000 panelon 07-08-2023 Albumin [Mass/Vol] 4.4 g/dL 3.9 - 4.9 g/dL [facility] ALP [Catalytic activity/Vol] 186 U/L High 38 - 113 U/L [facility] ALT [Catalytic activity/Vol] 9 U/L Low 10 - 54 U/L [facility] Anion gap [Moles/Vol] 12 mmol/L 9 - 18 mmol/L [facility] AST [Catalytic activity/Vol] 17 U/L 14 - 40 U/L [facility] Bilirubin [Mass/Vol] 0.4 mg/dL 0.2 - 1 .3 mg/dL [facility] Calcium [Mass/Vol] 9.5 mg/dL 8.5 - 10. 2 mg/dL [facility] Chloride [Moles/Vol] 102 mmol/L 97 - 10 5 mmol/L [facility] CO2 [Moles/Vol] 26 mmol/L 22 - 30 mmol/L [facility] Creatinine [Mass/Vol] 0.78 mg/dL 0.73 - 1.22 mg/dL [facility] GFR/1.73 sq M.predicted among non-blacks MDRD (S/P/Bld) [Vol rate/Area] 111 mL/min/{1.73_m2} - PINF [facility] Comment on above: Estimated Glomerular Filtration Rate (eGFR) is calculated using the 2020 CKD-EPI creatinine equation. This equation utilizes serum creatinine, sex, and age as parameters. The creatinine assay has traceable calibration to isotope dilution-mass spectrometry. Refer to KDIGO guidelines for clinical interpretation. In patients with unstable renal function, e.g. those with acute kidney injury, the eGFR may not accurately reflect actual GFR. Glucose [Mass/Vol] 73 mg/dL Low 74 - 99 mg/dL [facility] Comment on above: The [place] Diab[employer] s Association (ADA) provides guidance for cutoff values for fasting glucose and random glucose. The ADA defines fasting as no caloric intake for at least 8 hours. Fasting plasma glucose results between 100 to 125 mg/dL indicate increased risk for diabetes (prediabetes). Fasting plasma glucose results greater than or equal to 126 mg/dL meet the criteria for diagnosis of diabetes. In the absence of unequivocal hyperglycemia, results should be confirmed by repeat testing. In a patient with classic symptoms of hyperglycemia or hyperglycemic crisis, random plasma glucose results greater than or equal to 200 mg/dL meet the criteria for diagnosis of diabetes. Reference: Standards of Medical Care in Diabetes 2016, [place] [employer]. Diabetes Care. 2016.39(Suppl 1). Interpretation and review of laboratory results Abnormal [facility] Potassium [Moles/Vol] 4.1 mmol/L 3.7 - 5.1 mmol/L [facility] Protein [Mass/Vol] 7.1 g/dL 6.3 - 8.0 g/dL [facility] Sodium [Moles/Vol] 140 mmol/L 136 - 144 mmol/L [facility] Urea nitrogen [Mass/Vol] 15 mg/dL 9 - 24 mg/dL [facility] VITAMIN D 25 HYDROXYon 07-07 25-hydroxyvitamin D3 [Mass/Vol] 39.7 ng/mL 31.0 - 80.0 ng/mL [facility] Comment on above: Classification of 25 [place] Vitamin D status: Deficiency/Insufficiency: < or = 30 ng/ml. Sufficiency/Optimal Levels: 31-80 ng/mL Toxicity: > 100 ng/mL. Test performed by chemiluminescent immunoassay. No Panel Informationon 03-02 No acute fracture or malalignment of the right ankle or foot. MACRO: None. Signed by: Katelin Sheppard 03/02/2023 9:59 PM Dictation workstation: [id number] [facility] Interpreted By: Katelin Sheppard, STUDY: Right ankle, 3 views. Right foot, 3 views. INDICATION: Signs/Symptoms:caught foot in mold at work. COMPARISON: None. ACCESSION NUMBER(S): [id number]; [id number] ORDERING CLINICIAN: TRACY LOGAN STUDY: Right ankle/foot: No acute fracture or malalignment. The ankle mortise is normally aligned. No significant degenerative changes. Soft tissues are within normal limits [facility] Katelin Sheppard MD - 03/02/2023 Interpreted By: Katelin Sheppard, STUDY: Right ankle, 3 views. Right foot, 3 views. INDICATION: Signs/Symptoms:caught foot in mold at work. COMPARISON: None. ACCESSION NUMBER(S): [id number]; [id number] ORDERING CLINICIAN: TRACY LOGAN STUDY: Right ankle/foot: No acute fracture or malalignment. The ankle mortise is normally aligned. No significant degenerative changes. Soft tissues are within normal limits IMPRESSION: No acute fracture or malalignment of the right ankle or foot. MACRO: None. Signed by: Katelin Sheppard 03/02/2023 9:59 PM Dictation workstation: [id number] [facility] Work Phone: Radiology Study observation (narrative) [facility] Work Phone: No Panel InformationOrdered By: Katelin Sheppard on 03-02-2023 [facility] Work Phone: XR ANKLE RIGHT 3+ VIEWSon XR ANKLE RIGHT 3+ VIEWS Interpreted By: Katelin Sheppard, STUDY: Right ankle, 3 views. Right foot, 3 views. INDICATION: Signs/Symptoms:caught foot in mold at work. COMPARISON: None. ACCESSION NUMBER(S): [id number]; [id number] ORDERING CLINICIAN: TRACY LOGAN STUDY: Right ankle/foot: No acute fracture or malalignment. The ankle mortise is normally aligned. No significant degenerative changes. Soft tissues are within normal limits IMPRESSION: No acute fracture or malalignment of the right ankle or foot. MACRO: None. Signed by: Katelin Sheppard 03/02/2023 9:59 PM Dictation workstation: [id number] [facility] XR FOOT RIGHT 3+ VIEWSon XR FOOT RIGHT 3+ VIEWS Interpreted By: Katelin Sheppard, STUDY: Right ankle, 3 views. Right foot, 3 views. INDICATION: Signs/Symptoms:caught foot in mold at work. COMPARISON: None. ACCESSION NUMBER(S): [id number]; [id number] ORDERING CLINICIAN: TRACY LOGAN STUDY: Right ankle/foot: No acute fracture or malalignment. The ankle mortise is normally aligned. No significant degenerative changes. Soft tissues are within normal limits IMPRESSION: No acute fracture or malalignment of the right ankle or foot. MACRO: None. Signed by: Katelin Sheppard 03/02/2023 9:59 PM Dictation workstation: [id number] [facility] MR HAND LEFT WO IV CONTRASTo n 12-04-2022 MR HAND LEFT WO IV CONTRAST Interpreted By: Alexi Mcknight and Herzog Jackson STUDY: MRI of the left hand without IV contrast; 12/04/2022 2:50 pm INDICATION: Contusion of left hand. COMPARISON: Left hand radiographs 11/17/2022. ACCESSION NUMBER(S): [id number] ORDERING CLINICIAN: KELSI DESAI TECHNIQUE: MR imaging of the left hand was obtained without administration of intravenous contrast medium. FINDINGS: Tendons: The flexor and extensor tendons of the hand are intact. The tendons of the thenar and hypothenar compartments are normal. Ligaments: The major ligamentous structures of the hand are intact. Joints: The carpometacarpal, metacarpophalangeal, and interphalangeal joints are unremarkable without evidence of cartilage loss or reactive change. Osseous structures: There is no evidence of acute fracture or dislocation. There is no avascular necrosis. No marrow replacing lesions are seen. Nonspecific tiny cysts within the trapezoid, lunate, and capitate noted incidentally. Soft tissues: Skin markers are seen at the palmar aspect of the thenar eminence. No abnormality is identified underlying the skin markers. There is no evidence of muscular atrophy or tear. No suspicious soft tissue lesions are seen. IMPRESSION: No MRI evidence of internal derangement of the left hand. I personally reviewed the images/study and I agree with the findings as stated. This study was interpreted at [place], [place]. MACRO: None Signed by: Alexi Mcknight 12/04/2022 3:17 PM Dictation workstation: [id number] [facility] Comment on above: Order Comment: SPOKE TO SYLVIA AT [facility] MR Hand - left WO contraston 12-04-2022 No MRI evidence of internal derangement of the left hand. I personally reviewed the images/study and I agree with the findings as stated. This study was interpreted at [place], [place]. MACRO: None Signed by: Alexi Mcknight 12/04/2022 3:17 PM Dictation workstation: [id number] MMODAL Interpreted By: Alexi Mcknight and Herzog Jackson STUDY: MRI of the left hand without IV contrast; 12/04/2022 2:50 pm INDICATION: Contusion of left hand. COMPARISON: Left hand radiographs 11/17/2022. ACCESSION NUMBER(S): [id number] ORDERING CLINICIAN: KELSI DESAI TECHNIQUE: MR imaging of the left hand was obtained without administration of intravenous contrast medium. FINDINGS: Tendons: The flexor and extensor tendons of the hand are intact. The tendons of the thenar and hypothenar compartments are normal. Ligaments: The major ligamentous structures of the hand are intact. Joints: The carpometacarpal, metacarpophalangeal, and interphalangeal joints are unremarkable without evidence of cartilage loss or reactive change. Osseous structures: There is no evidence of acute fracture or dislocation. There is no avascular necrosis. No marrow replacing lesions are seen. Nonspecific tiny cysts within the trapezoid, lunate, and capitate noted incidentally. Soft tissues: Skin markers are seen at the palmar aspect of the thenar eminence. No abnormality is identified underlying the skin markers. There is no evidence of muscular atrophy or tear. No suspicious soft tissue lesions are seen. MMODAL Alexi Mcknight MD - 12/04/2022 Interpreted By: Alexi Mcknight and Herzog Jackson STUDY: MRI of the left hand without IV contrast; 12/04/2022 2:50 pm INDICATION: Contusion of left hand. COMPARISON: Left hand radiographs 11/17/2022. ACCESSION NUMBER(S): [id number] ORDERING CLINICIAN: KELSI DESAI TECHNIQUE: MR imaging of the left hand was obtained without administration of intravenous contrast medium. FINDINGS: Tendons: The flexor and extensor tendons of the hand are intact. The tendons of the thenar and hypothenar compartments are normal. Ligaments: The major ligamentous structures of the hand are intact. Joints: The carpometacarpal, metacarpophalangeal, and interphalangeal joints are unremarkable without evidence of cartilage loss or reactive change. Osseous structures: There is no evidence of acute fracture or dislocation. There is no avascular necrosis. No marrow replacing lesions are seen. Nonspecific tiny cysts within the trapezoid, lunate, and capitate noted incidentally. Soft tissues: Skin markers are seen at the palmar aspect of the thenar eminence. No abnormality is identified underlying the skin markers. There is no evidence of muscular atrophy or tear. No suspicious soft tissue lesions are seen. IMPRESSION: No MRI evidence of internal derangement of the left hand. I personally reviewed the images/study and I agree with the findings as stated. This study was interpreted at [place], [place]. MACRO: None Signed by: Alexi Mcknight 12/04/2022 3:17 PM Dictation workstation: [id number] [facility] Work Phone: Radiology Study observation (narrative) [facility] Work Phone: MR Hand - left WO contrastOr dered By: Alexi Mcknight on 12-04-2022 [facility] Work Phone: HAND MIN 3 VIEWSon 3 HAND MIN 3 VIEWS Patient Name: LIN DECKER STUDY: HAND MIN 3 VIEWS; Left; 11/17/2022 7:45 pm INDICATION: crush injury . COMPARISON: None. ACCESSION NUMBER(S): [id number] ORDERING CLINICIAN: MARTIN PINEDA FINDINGS: Three views of the hand are obtained. No acute fracture or dislocation. Bones are well mineralized. Soft tissues are unremarkable. IMPRESSION: No acute fracture. MACRO: None Electronically signed by: JASVIR LAWRENCE MD [facility] Provider Note - ED v3on 10-25 Provider Note - ED v3 Provider Note: Results/Vital Signs: Pediatric Clinical Scoring (COLLIN) is no recent COLLIN charted on this account Chart Review: ED NOTES ED NOTES: HPI: 22-year-old female presents with concern for left hand pain. States it was crushed at work approximately 3 hours ago with a piece of metal. States the pain is aching in nature. Denies any numbness or tingling. Physical Exam: VS: As documented in the triage note and EMR flowsheet from this visit were reviewed. Appearance: Alert. cooperative, in no acute distress. Skin: Intact, dry skin, no lesions, rash, petechiae or purpura. HENT: Normocephalic, atraumatic. Nares patent. No intraoral lesions. Neck: Supple, without meningismus. Trachea at midline. Musculoskeletal: Full range of motion of all digits on the left hand as well as the wrist in flexion and extension. Tenderness to palpation of the palmar aspect. Neurological: Sensation grossly intact to the medial and lateral aspect of the left hand. Psychiatric: Appropriate mood and affect. HISTORY OF PRESENTING ILLNESS LIN is a 22 year old Female and was seen by me at 17-Nov-2022 19:01 for a chief complaint of hand pain/injury (Patient ambulatory to ED with c/o left hand injury while working at [employer] approx 1630 today. Reports metal object crushed left hand. c/o swelling and pain)(1). Triage Information: Most recent Vital Sign Value Date Temp (F): 97.2 11-17-2022 19:12 Temp (C): 36.2 11-17-2022 19:12 Heart Rate (beats/min): 83 11-17-2022 19:12 Respirations (breaths/min): 18 11-17-2022 19:12 SpO2 (%): 100 11-17-2022 19:12 BP Systolic (mm Hg): 138 11-17-2022 19:12 BP Diastolic (mm Hg): 88 11-17-2022 19:12 PAST MEDICAL HISTORY ALLERGIES/INTOLERANCE S: Allergy Allergen: penicillins Type: Drug Category Reaction: Rash Hives/Urticaria HEALTH HISTORY: No documented data. OUTPATIENT MEDICATIONS: Home Medications Review Status for Reconciliation: Complete Med Status: Patient Currently Takes Medications Drug Name: ethosuximide 250 mg oral capsule Instructions: 2 cap(s) orally once a day in the morning Drug Name: ethosuximide 250 mg oral capsule Instructions: 3 cap(s) orally once a day (at bedtime) Drug Name: sertraline 50 mg oral tablet Instructions: 1 tab(s) orally once a day Drug Name: folic acid 1 mg oral tablet Instructions: 1 tab(s) orally once a day Drug Name: Vitamin D3 125 mcg (5000 intl units) oral capsule Instructions: 1 cap(s) orally once a day SIGNIFICANT EVENTS: Past Medical History Description:Epilepsy Description:Depressio n MDM MDM/ED COURSE: Medical Decision Making: Patient appears well and nontoxic. Vital signs within normal limits. X-rays negative for acute fracture or dislocation. Patient treated with oral Motrin. Advised on rest, ice, compression, elevation. Patient be given follow-up with occupational health and primary care. Stable at time of discharge. Differential Diagnoses Considered: Left hand fracture versus contusion. Independent Interpretation of Studies: I independently interpreted: Left hand x-ray shows no acute fracture or dislocation. Escalation of Care: Appropriate for discharge and follow-up with primary care and occupational health. Prescription Drug Consideration: Prescription pain medication considered however patient's pain is controlled with [id number] Motrin. DISPOSITION Diagnosis/Annotation: ED Dx Name:Contusion of left hand Code:S60.222A Disposition: discharged Type: home CONSULT CRITICAL CARE TIME Is this a critically ill patient: no Electronic Signatures: Martin Pineda) (Signed 17-Nov-2022 20:12) Authored: ED Notes, HPI, PMH, PE, Results/Vital Signs, MDM/ED Course, Clinical Impression, Attestation, Chart Review, Scores Last Updated: 17-Nov-2022 20:12 by Martin Pineda () References: 1. Data Referenced From Triage - ED 17-Nov-2022 19:12 Normal [facility] Risk Screen - Adult Emergenc n 11-17-2022 Risk Screen - Adult Emergency Preferred Language: Preferred Language: Preferred Language for Discussing Health Care (patient/designee)Alvin steven Patient Preferred Pharmacy: Patient Preferred Pharmacy Statement: I have reviewed and updated the patient's preferred pharmacy selection for today's visit. Advanced Directives: Advance Directive/DNRno Family Violence Adult: Abuse Screen: Are you or have you been threatened or abused physically, emotionally, or sexually by anyoneno Learning Assessment (Patient): Learning Assessment (Patient): Patient is Able to be Assessed for Learningyes Factors Influencing Readiness to Learnpain Factors that Impact Ability to Learnvisual problems Devices/Methods Used to Communicateglasses Learning Preferencesverbal instruction; written material Cultural Considerationsnone Developmental Considerationsnone Amish Considerationsnone Learning Assessment (Other Learner): Learning Assessment (Other Learner): Other learner availableno Pressure Injury/TB/Substance: Pressure Injury: Do you have a coughno Smoking Statusnever smoker Alcohol Usedenies Drug Usedenies Admission Risk Screen: Significant IndicatorsComplete CAGE: CAGE: Is this an injured patient at a Trauma Center ([facility]/[place]/[facility]/[place]): no Electronic Signatures: Gaby Barksdale (RN) (Signed 17-Nov-2022 19:22) Authored: Preferred Language, Patient Preferred Pharmacy, Advanced Directives, Family Violence Adult, Learning Assessment (Patient), Learning Assessment (Other Learner), Pressure Injury/TB/Substance, Pressure Injury, CAGE Last Updated: 17-Nov-2022 19:22 by Gaby Barksdale (CHAITANYA) [facility] Triage - EDon 11-17-2022 Triage - ED Quick Triage: Are You no Have You Given In The Last 6 Weeksno Are You Currently Breastfeedingno Chart Review: PRIMARY ASSESSMENT LIN DECKER's primary assessment is Within Defined Limits. The airway is open and patent. Breathing spontaneous and unlabored with clear breath sounds bilaterally. Circulation is normal with good peripheral pulses. Skin is warm and dry and color is normal for race. ARRIVAL INFORMATION Means of Arrival: Ambulatory Mode of Arrival: private vehicle Arrival From: workplace Accompanied By: non family member Language: Spoken Language Preferred: Mozambican Reading Language Preferred: Mozambican Present on Arrival: Device Present on Arrival to ED: no CHIEF COMPLAINT LIN DECKER is a Female patient with a chief complaint of hand pain/injury (Patient ambulatory to ED with c/o left hand injury while working at [employer] approx 1630 today. Reports metal object crushed left hand. c/o swelling and pain). Triage Date/Time: 17-Nov-2022 19:12 TIMI: 4 Pain Rating (0-10): 8 = Severe Pain location: left hand Vital Signs: Temperature: 97.2F ( 36.2C) taken oral Blood Pressure: 138/88 Mean: 105 Heart Rate: 83 Respiratory Rate: 18 Pulse Oximetry: 100% on room air, no respiratory support. Height: 5 feet 7.00 inches. 170.1 CM Weight: 180.3 pounds. Calculated 81.8 kg. (stated) Calculated BMI (kg/m2): 28.271 Calculated BSA (m2) 1.97 Valentina Coma Scale: Best Eye Response: (E4) spontaneous Best Motor Response: (M6) obeys commands Best Verbal Response: (V5) oriented [place] Score: 15 Cough lasting greater than 3 weeks: no Patient immunocompromised related to: N/A Allergies: yes Last menstrual period: 03-Nov-2022 Patient has homicidal thoughts: no Symptom Notes: . Symptoms Are POSITIVE For: difficulty bending and pain (describe). Symptoms Are Negative For: abrasion and bleeding. Risk Screens Suicide Risk Screen In the Past Month: Have you wished you were or wished you could go to sleep and not wake up no In the Past Month: Have you had any actual thoughts of killing yourself no In Your Lifetime: Have you ever done anything, started to do anything, or prepared to do anything to end your life no Jensen Fall Scale Screening Has the patient fallen before (or is the patient in the ED as a result of a fall) has not had a fall Does the patient have an impaired gait does not have impaired gait Is the patient cognitively impaired not cognitively impaired Interventions: Jensen Fall Interventions: LOW INTERVENTIONS: *patient oriented to surroundings and call system, * patient/family falls education completed and documented, *patients fall status communicated during bedside handoff, *whiteboard updated, *mode of toileting discussed with patient, *bed in low position with brakes locked, *call light in reach, * non-skid footwear PAST MEDICAL HISTORY Immunization History: Last Known Tetanus Immunization: Unknown TRAVEL HISTORY Travel History Coronavirus Screening: no exposure or symptoms Travel Exposure History: NO travel to International locations in the past 30 days PAIN Pain Scale Used: SARMAD Pain Rating (0-10): 8 = Severe Past Medical History: Past Medical History Reviewedyes Depression: Past Medical History, Active Epilepsy: Past Medical History, Active Electronic Signatures: Gaby Barksdale (CHAITANYA) (Signed 17-Nov-2022 19:19) Entered: Risk Screens, Pain, Arrival, ABCD, Immunizations, Travel History, Chart Review, Scores, Past Medical History Authored: Quick Triage, Risk Screens, Pain, Arrival, ABCD, Immunizations, Travel History, Chart Review, Scores, Past Medical History Last Updated: 17-Nov-2022 19:19 by Gaby Barksdale (CHAITANYA) [facility] SARS-COV-2 RAPIDon 2 Piece Maker Cyto stain Nom (Cvx/Vag) [ID] BWIC [facility] Interpretation and review of laboratory results Abnormal [facility] NARRATIVE -1 This test was performed using isothermal LINDSAY and has been approved as Emergency Use Authorization (EUA) for the qualitative detection [id number] nucleic acid. [facility] SARS-CoV-2 (COVID-19) RNA LINDSAY+probe Ql (Unsp spec) Detected Abnormal NOT DETECTED [facility] Comment on above: ENHANCED CONTACT, AN D DROPLET ISOLATION IS REQUIRED FOR INPATIENTS WITH SARS-CoV-2. [facility] POCT INFLUENZA, A Bon 2019 FLUAV Ag IA Ql (Nph) Positive [facility] FLUBV Ag IA Ql (Nph) Positive [facility] Internal controls [place] [facility] POCT RAPID STREP Aon 020 S. pyogenes Ag Ql (Throat) Negative (+/-) [facility] Internal controls [place] [facility] POCT RAPID STREP Aon 019 S. pyogenes Ag Ql (Throat) Negative (+/-) [facility] 25-Hydroxy D Totalon 018 25-Hydroxy D Total 12 ng/mL Low 30-100 [facility] Comment on above: Result Comment: Abiel paris note that Fluorescein which is used in angiography has been shownto falsely depress the results of TSH with our current assay. Evidencesuggests that patients undergoing fluorescein dye angiography can retainsmall amounts of fluorescein in the body for up to 48 to 72 hourspost-treatment. In the cases of patients with renal insufficiency,retention could be much longer. Samples should be resubmitted postfluorescein clearance to ensure there is no interference with the TSHtest result. Performed By: #### C BCDIF, ALT, AST, GLU, TSH, LIPID, [id number], HBA1C ####Unless otherwise noted, all testing performed by [facility] [place], [place] [id number]: [id number] Director: Brittanie Meraz 06-19-2017 Alanine aminotransferase (ALT) 16 U/L Normal 14-65 [facility] Comment on above: Result Comment: This test result might be falsely depressed or falsely elevated onsamples drawn from patients taking Sulfasalazine and Sulfapyridine.Venipuncture should occur prior to taking either of these drugs. Performed By: #### C BCDIF, ALT, AST, GLU, TSH, LIPID, [id number], HBA1C ####Unless otherwise noted, all testing performed by [address] [id number]: [id number] Director: Colten Hill M.D. Cele 06-19-2017 Aspartate aminotransferase (AST) 14 U/L Normal 0-45 [facility] Comment on above: Result Comment: This test result might be falsely depressed or falsely elevated onsamples drawn from patients taking Sulfasalazine and Sulfapyridine.Venipuncture should occur prior to taking either of these drugs. Performed By: #### C BCDIF, ALT, AST, GLU, TSH, LIPID, [id number], HBA1C ####Unless otherwise noted, all testing performed by [address] [id number]: [id number] Director: Colten Hill M.D. CBC and Differentialon 06-19 Basophils 0.5 % Invalid Interpretation Code [facility] Basophils 0.0 K/mcL Invalid Interpretation Code 0 - 0.2 [facility] Eosinophils 0.1 K/mcL Invalid Interpretation Code 0 - 0.5 [facility] Erythrocytes (RBC) 4.64 M/mcL Invalid Interpretation Code 4.1 - 5.2 [facility] Hematocrit (HCT) 41.9 % Normal 36.3-43.4 [facility] Comment on above: Performed By: #### C BCDIF, ALT, AST, GLU, TSH, LIPID, [id number], HBA1C ####Unless otherwise noted, all testing performed by [address] [id number]: [id number] Director: Colten Hill M.D. Hemoglobin (HGB) 13.7 g/dL Normal 12.2-14.8 [facility] Comment on above: Performed By: #### C BCDIF, ALT, AST, GLU, TSH, LIPID, [id number], HBA1C ####Unless otherwise noted, all testing performed by [address] [id number]: [id number] Director: Colten Hill M.D. Interpretation and review of laboratory results Abnormal Invalid Interpretation Code [facility] Lymphocytes 1.3 K/mcL Invalid Interpretation Code 1.0 - 3.7 [facility] MCH 29.6 pg Normal 26.6-31.4 [facility] Comment on above: Performed By: #### C BCDIF, ALT, AST, GLU, TSH, LIPID, [id number], HBA1C ####Unless otherwise noted, all testing performed by [address] [id number]: [id number] Director: Colten Hill M.D. MCHC 32.7 g/dL Normal 32.7-34.8 [facility] Comment on above: Performed By: #### C BCDIF, ALT, AST, GLU, TSH, LIPID, [id number], HBA1C ####Unless otherwise noted, all testing performed by [address] [id number]: [id number] Director: Colten Hill M.D. MCV 90.3 fL Normal 79.9-92.3 [facility] Comment on above: Performed By: #### C BCDIF, ALT, AST, GLU, TSH, LIPID, [id number], HBA1C ####Unless otherwise noted, all testing performed by [address] [phone]: [id number] Director: Colten Hill M.D. Monocytes 0.6 K/mcL Invalid Interpretation Code 0.1 - 0.6 [facility] Neutrophils 7.0 K/mcL High 1.2 - 6.9 [facility] Platelet mean volume (PMV) 8.2 fL Normal 7.4-10.4 [facility] Comment on above: Performed By: #### C BCDIF, ALT, AST, GLU, TSH, LIPID, [id number], HBA1C ####Unless otherwise noted, all testing performed by [address] [phone]: [id number] Director: Colten Hill M.D. Platelets 371 K/mcL Invalid Interpretation Code 130 - 400 [facility] RDW-CA 12.9 % Low 13.0-15.0 [facility] Comment on above: Performed By: #### C BCDIF, ALT, AST, GLU, TSH, LIPID, [id number], HBA1C ####Unless otherwise noted, all testing performed by [address] [phone]: [id number] Director: Colten Hill M.D. Segmented Neut 77.3 % Invalid Interpretation Code [facility] T8 suppressor/100 cells 0.7 10*3/uL Invalid Interpretation Code [facility] T8 suppressor/100 cells 14.6 10*3/uL Invalid Interpretation Code [facility] T8 suppressor/100 cells 6.9 10*3/uL Invalid Interpretation Code [facility] WBC (Leukocytes) 9.1 K/mcL High 4.1 - 8.9 [facility] CBC with Diffon 06-19-2017 Basophils Auto #/vol (Bld) 0.0 K/mcL Normal 0-0.2 [facility] Comment on above: Performed By: #### C BCDIF, ALT, AST, GLU, TSH, LIPID, [id number], HBA1C ####Unless otherwise noted, all testing performed by [place] [phone]: [id number] Director: Colten Hill M.D. Basophils/100 WBC Auto (Bld) 0.5 % Normal [facility] Comment on above: Performed By: #### C BCDIF, ALT, AST, GLU, TSH, LIPID, [id number], HBA1C ####Unless otherwise noted, all testing performed by [place] [phone]: [id number] Director: Colten Hill M.D. Eosinophils 0.1 K/mcL Normal 0-0.5 [facility] Comment on above: Performed By: #### C BCDIF, ALT, AST, GLU, TSH, LIPID, [id number], HBA1C ####Unless otherwise noted, all testing performed by [place] [phone]: [id number] Director: Colten Hill M.D. Eosinophils/100 leukocytes 0.7 % Normal [facility] Comment on above: Performed By: #### C BCDIF, ALT, AST, GLU, TSH, LIPID, [id number], HBA1C ####Unless otherwise noted, all testing performed by [place] [phone]: [id number] Director: Colten Hill M.D. Erythrocytes (RBC) 4.64 M/mcL Normal 4.1-5.2 [facility] Comment on above: Performed By: #### C BCDIF, ALT, AST, GLU, TSH, LIPID, [id number], HBA1C ####Unless otherwise noted, all testing performed by [address] [phone]: [id number] Director: Colten Hill M.D. Lymphocytes 1.3 K/mcL Normal 1.0-3.7 [facility] Comment on above: Performed By: #### C BCDIF, ALT, AST, GLU, TSH, LIPID, [id number], HBA1C ####Unless otherwise noted, all testing performed by [address] [phone]: [id number] Director: Cotlen Hill M.D. Lymphocytes/100 leukocytes 14.6 % Normal [facility] Comment on above: Performed By: #### C BCDIF, ALT, AST, GLU, TSH, LIPID, [id number], HBA1C ####Unless otherwise noted, all testing performed by [address] [phone]: [id number] Director: Colten Hill M.D. Monocytes 0.6 K/mcL Normal 0.1-0.6 [facility] Comment on above: Performed By: #### C BCDIF, ALT, AST, GLU, TSH, LIPID, [id number], HBA1C ####Unless otherwise noted, all testing performed by [address] [phone]: [id number] Director: Colten Hill M.D. Monocytes/100 leukocytes 6.9 % Normal [facility] Comment on above: Performed By: #### C BCDIF, ALT, AST, GLU, TSH, LIPID, [id number], HBA1C ####Unless otherwise noted, all testing performed by [address] [phone]: [id number] Director: Colten Hill M.D. Neutrophils 7.0 K/mcL High 1.2-6.9 [facility] Comment on above: Performed By: #### C BCDIF, ALT, AST, GLU, TSH, LIPID, [id number], HBA1C ####Unless otherwise noted, all testing performed by [address] [phone]: [id number] Director: Colten Hill M.D. Platelets 371 K/mcL Normal 130-400 [facility] Comment on above: Performed By: #### C BCDIF, ALT, AST, GLU, TSH, LIPID, [id number], HBA1C ####Unless otherwise noted, all testing performed by [address] [phone]: [id number] Director: Colten Hill M.D. Segmented Neut % 77.3 % Normal [facility] Comment on above: Performed By: #### C BCDIF, ALT, AST, GLU, TSH, LIPID, [id number], HBA1C ####Unless otherwise noted, all testing performed by [address] [phone]: [id number] Director: Colten Hill M.D. WBC (Leukocytes) 9.1 K/mcL High 4.1-8.9 [facility] Comment on above: Performed By: #### C BCDIF, ALT, AST, GLU, TSH, LIPID, [id number], HBA1C ####Unless otherwise noted, all testing performed by [address] [phone]: [id number] Director: Colten Hill M.D. Glucoseon 06-19-2017 Glucose 92 mg/dL Invalid Interpretation Code 70 - 99 mg/dL [facility] Glucose mass conc 92 mg/dL Normal 70-99 [facility] Comment on above: Result Comment: This test result might be falsely depressed or falsely elevated onsamples drawn from patients taking Sulfasalazine and Sulfapyridine.Venipuncture should occur prior to taking either of these drugs. Performed By: #### C BCDIF, ALT, AST, GLU, TSH, LIPID, [id number], HBA1C ####Unless otherwise noted, all testing performed by [address] [phone]: [id number] Director: Colten Hill M.D. Hemoglobin A1con 06-19-2017 HbA1c 5.1 % Normal 4.1-6.5 [facility] Comment on above: Performed By: #### C BCDIF, CMET, ETHSX ####Unless otherwise noted, all testing performed by [address] [phone]: [id number] Director: Colten Hill M.D. Lipid Panelon 06-19-2017 Cholesterol 122 mg/dL Normal 75-169 [facility] Comment on above: Performed By: #### C BCDIF, ALT, AST, GLU, TSH, LIPID, [id number], HBA1C ####Unless otherwise noted, all testing performed by [address] [phone]: [id number] Director: Colten Hill M.D. Cholesterol in VLDL mass conc 12 mg/dL Normal 5-40 [facility] Comment on above: Performed By: #### C BCDIF, ALT, AST, GLU, TSH, LIPID, [id number], HBA1C ####Unless otherwise noted, all testing performed by [address] [phone]: [id number] Director: Colten Hill M.D. Cholesterol to HDL Ratio 2.7 {ratio} Low 3.2-5.0 [facility] Comment on above: Result Comment: Chayo rivera Coronary Heart Disease Risk Factor (CHDRF):Average risk= 4.41/2 Average risk= 3.32 times Average risk= 7.1 Performed By: #### C BCDIF, ALT, AST, GLU, TSH, LIPID, [id number], HBA1C ####Unless otherwise noted, all testing performed by [address] [phone]: [id number] Director: Colten Hill M.D. HDL Cholesterol 46 mg/dL Normal 40-59 [facility] Comment on above: Performed By: #### C BCDIF, ALT, AST, GLU, TSH, LIPID, [id number], HBA1C ####Unless otherwise noted, all testing performed by [address] [phone]: [id number] Director: Colten Hill M.D. LDL Cholesterol 64 mg/dL Invalid Interpretation Code 10 - 150 mg/dL [facility] LDL Cholesterol 64 mg/dL Normal 10-150 [facility] Comment on above: Performed By: #### C BCDIF, ALT, AST, GLU, TSH, LIPID, [id number], HBA1C ####Unless otherwise noted, all testing performed by [address] [phone]: [id number] Director: Colten Hill M.D. Triglyceride 61 mg/dL Normal 25-120 [facility] Comment on above: Performed By: #### C BCDIF, ALT, AST, GLU, TSH, LIPID, [id number], HBA1C ####Unless otherwise noted, all testing performed by [address] [phone]: [id number] Director: Colten Hill M.D. VLDL 12 mg/dL Invalid Interpretation Code 5 - 40 mg/dL [facility] TSHon 06-19-2017 Thyroid stimulating hormone (TSH) 0.90 uIU/mL Invalid Interpretation Code 0.320 - 5.000 [facility] Thyroid stimulating hormone (TSH) 0.90 uIU/mL Normal 0.320-5.000 [facility] Comment on above: Result Comment: Samp les from patients routinely receiving high dose biotin therapy(100-300 mg/day) may show falsely decreased results. Please correlateclinically. Performed By: #### C BCDIF, ALT, AST, GLU, TSH, LIPID, [id number], HBA1C ####Unless otherwise noted, all testing performed by [address] [phone]: [id number] Director: Colten Hill M.D. Vitamin D, Total, 25-OHon Vitamin D, 25-Hydroxy, Total 12 ng/mL Low 30 - 100 ng/mL [facility] CBC and Differentialon 05-02 Basophils 0.0 K/mcL Invalid Interpretation Code 0 - 0.2 [facility] Basophils 0.5 % Invalid Interpretation Code [facility] Eosinophils 0.1 K/mcL Invalid Interpretation Code 0 - 0.5 [facility] Erythrocytes (RBC) 4.63 M/mcL Invalid Interpretation Code 4.1 - 5.2 [facility] Hematocrit (HCT) 41.1 % Normal 36.3-43.4 [facility] Comment on above: Performed By: #### C BCDIF, CMET, ETHSX ####Unless otherwise noted, all testing performed by [address] [phone]: [id number] Director: Colten Hill M.D. Hemoglobin (HGB) 14.0 g/dL Normal 12.2-14.8 [facility] Comment on above: Performed By: #### C BCDIF, CMET, ETHSX ####Unless otherwise noted, all testing performed by [address] [phone]: [id number] Director: Colten Hill M.D. Interpretation and review of laboratory results Abnormal Invalid Interpretation Code [facility] Lymphocytes 1.5 K/mcL Invalid Interpretation Code 1.0 - 3.7 [facility] MCH 30.3 pg Normal 26.6-31.4 [facility] Comment on above: Performed By: #### C BCDIF, CMET, ETHSX ####Unless otherwise noted, all testing performed by [address] [phone]: [id number] Director: Colten Hill M.D. MCHC 34.1 g/dL Normal 32.7-34.8 [facility] Comment on above: Performed By: #### C BCDIF, CMET, ETHSX ####Unless otherwise noted, all testing performed by [address] [phone]: [id number] Director: Colten Hill M.D. MCV 88.8 fL Normal 79.9-92.3 [facility] Comment on above: Performed By: #### C BCDIF, CMET, ETHSX ####Unless otherwise noted, all testing performed by [address] [phone]: [id number] Director: Colten Hill M.D. Monocytes 0.7 K/mcL High 0.1 - 0.6 [facility] Neutrophils 5.9 K/mcL Invalid Interpretation Code 1.2 - 6.9 [facility] Platelet mean volume (PMV) 8.1 fL Normal 7.4-10.4 [facility] Comment on above: Performed By: #### C BCDIF, CMET, ETHSX ####Unless otherwise noted, all testing performed by [address] [phone]: [id number] Director: Colten Hill M.D. Platelets 347 K/mcL Invalid Interpretation Code 130 - 400 [facility] RDW-CA 13.2 % Normal 13.0-15.0 [facility] Comment on above: Performed By: #### C BCDIF, CMET, ETHSX ####Unless otherwise noted, all testing performed by [address] [phone]: [id number] Director: Colten Hill M.D. Segmented Neut 71.7 % Invalid Interpretation Code [facility] T8 suppressor/100 cells 1.5 10*3/uL Invalid Interpretation Code [facility] T8 suppressor/100 cells 17.7 10*3/uL Invalid Interpretation Code [facility] T8 suppressor/100 cells 8.6 10*3/uL Invalid Interpretation Code [facility] WBC (Leukocytes) 8.2 K/mcL Invalid Interpretation Code 4.1 - 8.9 [facility] CBC with Diffon 05-02-2017 Basophils Auto #/vol (Bld) 0.0 K/mcL Normal 0-0.2 [facility] Comment on above: Performed By: #### C BCDIF, CMET, ETHSX ####Unless otherwise noted, all testing performed by [place] [phone]: [id number] Director: Cotlen Hill M.D. Basophils/100 WBC Auto (Bld) 0.5 % Normal [facility] Comment on above: Performed By: #### C BCDIF, CMET, ETHSX ####Unless otherwise noted, all testing performed by [address]8[address]CLIA: [id number] Director: Colten Hill M.D. Eosinophils 0.1 K/mcL Normal 0-0.5 [facility] Comment on above: Performed By: #### C BCDIF, CMET, ETHSX ####Unless otherwise noted, all testing performed by [address]8509CLIA: [id number] Director: Colten Hill M.D. Eosinophils/100 leukocytes 1.5 % Normal [facility] Comment on above: Performed By: #### C BCDIF, CMET, ETHSX ####Unless otherwise noted, all testing performed by [address]8[address]CLIA: [id number] Director: Colten Hill M.D. Erythrocytes (RBC) 4.63 M/mcL Normal 4.1-5.2 [facility] Comment on above: Performed By: #### C BCDIF, CMET, ETHSX ####Unless otherwise noted, all testing performed by [address] [phone]: [id number] Director: Colten Hill M.D. Lymphocytes 1.5 K/mcL Normal 1.0-3.7 [facility] Comment on above: Performed By: #### C BCDIF, CMET, ETHSX ####Unless otherwise noted, all testing performed by [address] [phone]: [id number] Director: Colten Hill M.D. Lymphocytes/100 leukocytes 17.7 % Normal [facility] Comment on above: Performed By: #### C BCDIF, CMET, ETHSX ####Unless otherwise noted, all testing performed by [place] [phone]: [id number] Director: Colten Hill M.D. Monocytes 0.7 K/mcL High 0.1-0.6 [facility] Comment on above: Performed By: #### C BCDIF, CMET, ETHSX ####Unless otherwise noted, all testing performed by [place] [phone]: [id number] Director: Colten Hill M.D. Monocytes/100 leukocytes 8.6 % Normal [facility] Comment on above: Performed By: #### C BCDIF, CMET, ETHSX ####Unless otherwise noted, all testing performed by [place] [phone]: [id number] Director: Colten Hill M.D. Neutrophils 5.9 K/mcL Normal 1.2-6.9 [facility] Comment on above: Performed By: #### C BCDIF, CMET, ETHSX ####Unless otherwise noted, all testing performed by [address] [phone]: [id number] Director: Colten Hill M.D. Platelets 347 K/mcL Normal 130-400 [facility] Comment on above: Performed By: #### C BCDIF, CMET, ETHSX ####Unless otherwise noted, all testing performed by [address] [phone]: [id number] Director: Colten Hill M.D. Segmented Neut % 71.7 % Normal [facility] Comment on above: Performed By: #### C BCDIF, CMET, ETHSX ####Unless otherwise noted, all testing performed by [address] [phone]: [id number] Director: Colten Hill M.D. WBC (Leukocytes) 8.2 K/mcL Normal 4.1-8.9 [facility] Comment on above: Performed By: #### C BCDIF, CMET, ETHSX ####Unless otherwise noted, all testing performed by [address] [phone]: [id number] Director: Colten Hill M.D. Comprehensive Metabolic Pane [facility] 05-02-2017 Alanine aminotransferase (ALT) 14 U/L Normal 14-65 [facility] Comment on above: Result Comment: This test result might be falsely depressed or falsely elevated onsamples drawn from patients taking Sulfasalazine and Sulfapyridine.Venipuncture should occur prior to taking either of these drugs. Performed By: #### C BCDIF, CMET, ETHSX ####Unless otherwise noted, all testing performed by [place] [phone]: [id number] Director: Colten Hill M.D. Albumin 4.0 g/dL Normal 3.2-4.5 [facility] Comment on above: Performed By: #### C BCDIF, CMET, ETHSX ####Unless otherwise noted, all testing performed by [address]8[address]CLIA: [id number] Director: Colten Hill M.D. Alkaline phosphatase (ALP) 243 U/L Normal 110-630 [facility] Comment on above: Performed By: #### C BCDIF, CMET, ETHSX ####Unless otherwise noted, all testing performed by [address]8509CLIA: [id number] Director: Colten Hill M.D. Aspartate aminotransferase (AST) 10 U/L Normal 0-45 [facility] Comment on above: Result Comment: This test result might be falsely depressed or falsely elevated onsamples drawn from patients taking Sulfasalazine and Sulfapyridine.Venipuncture should occur prior to taking either of these drugs. Performed By: #### C BCDIF, CMET, ETHSX ####Unless otherwise noted, all testing performed by [place] [phone]: [id number] Director: Colten Hill M.D. Bilirubin (total) 0.4 mg/dL Normal 0.3-1.2 [facility] Comment on above: Performed By: #### C BCDIF, CMET, ETHSX ####Unless otherwise noted, all testing performed by [address] [phone]: [id number] Director: Colten Hill M.D. Calcium 9.5 mg/dL Normal 8.4-10.2 [facility] Comment on above: Performed By: #### C BCDIF, CMET, ETHSX ####Unless otherwise noted, all testing performed by [place] [phone]: [id number] Director: Colten Hill M.D. Chloride 106 mmol/L Normal 98-108 [facility] Comment on above: Performed By: #### C BCDIF, CMET, ETHSX ####Unless otherwise noted, all testing performed by [place] [phone]: [id number] Director: Colten Hill M.D. CO2 29 mmol/L Normal 21-32 [facility] Comment on above: Performed By: #### C BCDIF, CMET, ETHSX ####Unless otherwise noted, all testing performed by [place] [phone]: [id number] Director: Colten Hill M.D. Creatinine 0.70 mg/dL Normal 0.50-1.00 [facility] Comment on above: Performed By: #### C BCDIF, CMET, ETHSX ####Unless otherwise noted, all testing performed by [address] [place] [phone]: [id number] Director: Colten Hill M.D. eGFR (black) Unable to calculate eGFR due to patient age <18 years. Normal [facility] Comment on above: Result Comment: Afri can [place] GFR Calc Performed By: #### C BCDIF, CMET, ETHSX ####Unless otherwise noted, all testing performed by [address] [phone]: [id number] Director: Colten Hill M.D. eGFR (non-black) Unable to calculate eGFR due to patient age <18 years. Normal [facility] Comment on above: Result Comment: Non- GFR Calc Performed By: #### C BCDIF, CMET, ETHSX ####Unless otherwise noted, all testing performed by [address] [phone]: [id number] Director: Colten Hill M.D. Glucose 88 mg/dL Invalid Interpretation Code 70 - 99 mg/dL [facility] Glucose mass conc 88 mg/dL Normal 70-99 [facility] Comment on above: Result Comment: This test result might be falsely depressed or falsely elevated onsamples drawn from patients taking Sulfasalazine and Sulfapyridine.Venipuncture should occur prior to taking either of these drugs. Performed By: #### C BCDIF, CMET, ETHSX ####Unless otherwise noted, all testing performed by [address] [phone]: [id number] Director: Colten Hill M.D. Potassium 4.2 mmol/L Normal 3.5-5.1 [facility] Comment on above: Performed By: #### C BCDIF, CMET, ETHSX ####Unless otherwise noted, all testing performed by [address] [phone]: [id number] Director: Colten Hill M.D. Protein 8.1 g/dL High 6.0-8.0 [facility] Comment on above: Performed By: #### C BCDIF, CMET, ETHSX ####Unless otherwise noted, all testing performed by [address] [phone]: [id number] Director: Colten Hill M.D. Sodium 141 mmol/L Normal 135-145 [facility] Comment on above: Performed By: #### C BCDIF, CMET, ETHSX ####Unless otherwise noted, all testing performed by [address] [phone]: [id number] Director: Colten Hill M.D. Urea nitrogen 9 mg/dL Normal 8-25 [facility] Comment on above: Performed By: #### C BCDIF, CMET, ETHSX ####Unless otherwise noted, all testing performed by [address] [phone]: [id number] Director: Colten Hill M.D. Urine, bilirubin presence 0.4 mg/dL Invalid Interpretation Code 0.3 - 1.2 mg/dL [facility] Ethosuximide (Zarontin)on Ethosuximide (Zarontin) 85 mcg/mL Normal 40 - 100 [facility] Comment on above: Result Comment: Test Performed by:[place] [address] Performed By: #### C BCDIF, CMET, ETHSX ####Unless otherwise noted, all testing performed by [facility] [place] [address], [place] [phone]: [id number] Director: Colten Hill M.D. CULTURE URINEon 04-29-2017 CULTURE URINE COLONY COUNT = ZERO COLONY FORMING UNITS, ML ISOL NO GROWTH OBSERVED AFTER 1 DAY NO PATHOGENS GROWN AFTER 2 DAYS Normal [facility] Comment on above: Performed By: #### U RINE ####[facility], [place] [address]Zrjovvx Director - Christen Fuller [id number] ABDOMEN FLATon 04-28-2017 ABDOMEN FLAT KUB, SINGLE VIEW: HISTORY: Left-sided abdominal discomfort x3 weeks. FINDINGS: Large colonic stool burden seen. No gas-filled bowel obstruction. No urinary tract calculi. IMPRESSION: Large colonic stool burden without obstruction. Normal [facility] CULTURE URINEon 10-29-2016 Urine culture, bacteria COLONY COUNT = ZERO COLONY FORMING UNITS, ML ISOL NO GROWTH OBSERVED AFTER 1 DAY NO PATHOGENS GROWN AFTER 2 DAYS Normal [facility] Comment on above: Performed By: #### 6 30-4 ####[facility], [place] [address]Azryboz Director - Christne Fuller [id number] Vital Signs Date Time Vital Sign Value Performing Clinician Facility 11-29-2024 16:23-0400 Heart rate 96 /min Dian Mercer CNP Work Phone: [facility] Comment on above: r/c 11-29-2024 16:19-0400 Body height 172.7 cm Dian Mercer [employer] Work Phone: [facility] 11-29-2024 16:19-0400 Body mass index (BMI) [Ratio] 22.81 kg/m2 Dian Mercer CNP Work Phone: [facility] 11-29-2024 16:19-0400 Body temperature 99 [degF] Dian Mercer CNP Work Phone: [facility] 11-29-2024 16:19-0400 Body weight 68.04 kg Dian Mercer SILK SPOTTER Work Phone: [facility] 11-29-2024 16:19-0400 Diastolic blood pressure 86 mm[Hg] Dian Mercer SILK SPOTTER Work Phone: [facility] 11-29-2024 16:19-0400 Respiratory rate 16 /min Dian Mercer SILK SPOTTER Work Phone: [facility] 11-29-2024 16:19-0400 SaO2% (BldA) [Mass fraction] 98 % Dian Mercer SILK SPOTTER Work Phone: [facility] 11-29-2024 16:19-0400 Systolic blood pressure 131 mm[Hg] Dian Mercer SILK SPOTTER Work Phone: [facility] 11-24-2024 11:59-0400 Body height 172.7 cm Nereyda Gonsales SILK SPOTTER Work Phone: [facility] 11-24-2024 11:59-0400 Body mass index (BMI) [Ratio] 22.81 kg/m2 Nereyda Dohertyey SILK SPOTTER Work Phone: [facility] 11-24-2024 11:59-0400 Body temperature 98.71 [degF] Nereyda Gonsales SILK SPOTTER Work Phone: [facility] 11-24-2024 11:59-0400 Body weight 68.04 kg Nereyda Dohertyey SILK SPOTTER Work Phone: [facility] 11-24-2024 11:59-0400 Diastolic blood pressure 64 mm[Hg] Nereyda Dohertyey SILK SPOTTER Work Phone: [facility] 11-24-2024 11:59-0400 Heart rate 74 /min Nereyda Dohertyey SILK SPOTTER Work Phone: [facility] 11-24-2024 11:59-0400 Respiratory rate 16 /min Nereyda Dohertyey SILK SPOTTER Work Phone: [facility] 11-24-2024 11:59-0400 SaO2% (BldA) [Mass fraction] 99 % Nereyda Gonsales SILK SPOTTER Work Phone: [facility] 11-24-2024 11:59-0400 Systolic blood pressure 122 mm[Hg] Nereyda Gonsales SILK SPOTTER Work Phone: [facility] 10-16-2024 01:34-0400 Diastolic blood pressure 71 mm[Hg] [facility] 10-16-2024 01:34-0400 Heart rate 70 /min [facility] 10-16-2024 01:34-0400 Respiratory rate 16 /min [facility] 10-16-2024 01:34-0400 SaO2% (BldA) [Mass fraction] 99 % [facility] 10-16-2024 01:34-0400 Systolic blood pressure 120 mm[Hg] [facility] 10-15-2024 22:34-0400 Body mass index (BMI) [Ratio] 26.61 kg/m2 [facility] 10-15-2024 22:34-0400 Body weight 79.38 kg [facility] 10-15-2024 22:32-0400 Body temperature 98.1 [degF] [facility] 08-12-2024 01:44-0400 Body temperature 98 [degF] No Primary Care Physician [facility] 08-12-2024 01:44-0400 Diastolic blood pressure 9 mm[Hg] No Primary Care Physician [facility] 08-12-2024 01:44-0400 Heart rate 80 /min No Primary Care Physician [facility] 08-12-2024 01:44-0400 Respiratory rate 18 /min No Primary Care Physician [facility] 08-12-2024 01:44-0400 SaO2% (BldA) [Mass fraction] 100 % No Primary Care Physician [facility] 08-12-2024 01:44-0400 Systolic blood pressure 131 mm[Hg] No Primary Care Physician [facility] 08-11-2024 23:05-0400 Body height 170.18 cm No Primary Care Physician [facility] 08-11-2024 23:05-0400 Body mass index (BMI) [Ratio] 27.3 kg/m2 No Primary Care Physician [facility] 08-11-2024 23:05-0400 Body weight 79.2 kg No Primary Care Physician [facility] 07-26-2024 18:33-0400 Body height 172.7 cm Cassidy Albarranley CHARGE MASTER ANALYST-SILK SPOTTER Work Phone: [facility] 07-26-2024 18:33-0400 Body mass index (BMI) [Ratio] 25.09 kg/m2 Cassidy Albarranley CHARGE MASTER ANALYST-SILK SPOTTER Work Phone: [facility] 07-26-2024 18:33-0400 Body temperature 98.2 [degF] Cassidy Albarranley CHARGE MASTER ANALYST-SILK SPOTTER Work Phone: [facility] 07-26-2024 18:33-0400 Body weight 74.84 kg Cassidy Albarranley CHARGE MASTER ANALYST-SILK SPOTTER Work Phone: [facility] 07-26-2024 18:33-0400 Diastolic blood pressure 87 mm[Hg] Cassidy Albarranley CHARGE MASTER ANALYST-SILK SPOTTER Work Phone: [facility] 07-26-2024 18:33-0400 Heart rate 123 /min Cassidy Albarranley CHARGE MASTER ANALYST-SILK SPOTTER Work Phone: [facility] 07-26-2024 18:33-0400 Respiratory rate 18 /min Cassidy Albarranley CHARGE MASTER ANALYST-SILK SPOTTER Work Phone: [facility] 07-26-2024 18:33-0400 SaO2% (BldA) [Mass fraction] 98 % Cassidy Albarranley CHARGE MASTER ANALYST-SILK SPOTTER Work Phone: [facility] 07-26-2024 18:33-0400 Systolic blood pressure 132 mm[Hg] Cassidy Lexi CHARGE MASTER ANALYST-SILK SPOTTER Work Phone: [facility] 10-20-2023 15:47-0400 Body height 172.7 cm Pola Hernadezd SILK SPOTTER Work Phone: [facility] 10-20-2023 15:47-0400 Body mass index (BMI) [Ratio] 25.09 kg/m2 Pola Hernadezd SILK SPOTTER Work Phone: [facility] 10-20-2023 15:47-0400 Body temperature 97 [degF] Pola Hernadezd SILK SPOTTER Work Phone: [facility] 10-20-2023 15:47-0400 Body weight 74.84 kg Pola Hernadezd SILK SPOTTER Work Phone: [facility] 10-20-2023 15:47-0400 Diastolic blood pressure 78 mm[Hg] Destineya Maricarmend SILK SPOTTER Work Phone: [facility] 10-20-2023 15:47-0400 Heart rate 79 /min Pola Hernadezd SILK SPOTTER Work Phone: [facility] 10-20-2023 15:47-0400 Respiratory rate 18 /min Destineya Maricarmend SILK SPOTTER Work Phone: [facility] 10-20-2023 15:47-0400 SaO2% (BldA) [Mass fraction] 99 % Pola Hernadezd SILK SPOTTER Work Phone: [facility] 10-20-2023 15:47-0400 Systolic blood pressure 132 mm[Hg] Destineya Maricarmend SILK SPOTTER Work Phone: [facility] 07-08-2023 09:11-0400 Body height 172.7 cm Jake Velasquez MD Work Phone: [facility] 07-08-2023 09:11-0400 Body mass index (BMI) [Ratio] 28.89 kg/m2 Jake Velasquez MD Work Phone: [facility] 07-08-2023 09:11-0400 Body temperature 98.01 [degF] Jake Velasquez MD Work Phone: [facility] 07-08-2023 09:11-0400 Body weight 86.2 kg Jake Velasquez MD Work Phone: [facility] 07-08-2023 09:11-0400 Diastolic blood pressure 72 mm[Hg] Jake Velasquez MD Work Phone: [facility] 07-08-2023 09:11-0400 Heart rate 82 /min Jake Velasquez MD Work Phone: [facility] 07-08-2023 09:11-0400 Respiratory rate 20 /min Jake Velasquez MD Work Phone: [facility] 07-08-2023 09:11-0400 SaO2% (BldA) [Mass fraction] 100 % Jake Velasquez MD Work Phone: [facility] 07-08-2023 09:11-0400 Systolic blood pressure 122 mm[Hg] Jake Velasquez MD Work Phone: [facility] 03-02-2023 22:19-0500 Diastolic blood pressure 85 mm[Hg] No Generic Provider [facility] 03-02-2023 22:19-0500 Heart rate 76 /min No Generic Provider [facility] 03-02-2023 22:19-0500 Respiratory rate 18 /min No Generic Provider [facility] 03-02-2023 22:19-0500 SaO2% (BldA) [Mass fraction] 100 % No Generic Provider [facility] 03-02-2023 22:19-0500 Systolic blood pressure 129 mm[Hg] No Generic Provider [facility] 03-02-2023 20:15-0500 Body height 172.7 cm No Generic Provider [facility] 03-02-2023 20:15-0500 Body mass index (BMI) [Ratio] 24.18 kg/m2 No Generic Provider [facility] 03-02-2023 20:15-0500 Body temperature 98.1 [degF] No Generic Provider [facility] 03-02-2023 20:15-0500 Body weight 72.12 kg No Generic Provider [facility] 05-18-2022 15:02-0400 Body height 172.7 cm Mejia Escobar APRN-SILK SPOTTER Work Phone: [facility] 05-18-2022 15:02-0400 Body mass index (BMI) [Ratio] 27.37 kg/m2 Mejia Escobar APRN-SILK SPOTTER Work Phone: [facility] 05-18-2022 15:02-0400 Body temperature 98.8 [degF] Mejia Escobar CHARGE MASTER ANALYST-SILK SPOTTER Work Phone: [facility] 05-18-2022 15:02-0400 Body weight 81.65 kg Mejia Escobar CHARGE MASTER ANALYST-SILK SPOTTER Work Phone: [facility] 05-18-2022 15:02-0400 Diastolic blood pressure 82 mm[Hg] Mejia Escobar CHARGE MASTER ANALYST-SILK SPOTTER Work Phone: [facility] 05-18-2022 15:02-0400 Heart rate 81 /min Mejia Escobar CHARGE MASTER ANALYST-SILK SPOTTER Work Phone: [facility] 05-18-2022 15:02-0400 Respiratory rate 16 /min Mejia Escobar CHARGE MASTER ANALYST-SILK SPOTTER Work Phone: [facility] 05-18-2022 15:02-0400 SaO2% (BldA) [Mass fraction] 99 % Mejia Escobar APRN-SILK SPOTTER Work Phone: [facility] 05-18-2022 15:02-0400 Systolic blood pressure 136 mm[Hg] Mejia Escobar APRN-SILK SPOTTER Work Phone: [facility] 10-14-2021 17:01-0400 Body height 170.2 cm Cassidy Jimenez APRN-SILK SPOTTER Work Phone: [facility] 10-14-2021 17:01-0400 Body mass index (BMI) [Ratio] 31.32 kg/m2 Cassidy Jimenez APRN-SILK SPOTTER Work Phone: [facility] 10-14-2021 17:01-0400 Body temperature 98.29 [degF] Cassidy Jimenez APRN-SILK SPOTTER Work Phone: [facility] 10-14-2021 17:01-0400 Body weight 90.72 kg Cassidy RENE Work Phone: [facility] 10-14-2021 17:01-0400 Diastolic blood pressure 90 mm[Hg] Cassidy Jimenez APRN-SILK SPOTTER Work Phone: [facility] 10-14-2021 17:01-0400 Heart rate 86 /min Cassidy Jimenez APRN-SILK SPOTTER Work Phone: [facility] 10-14-2021 17:01-0400 Respiratory rate 19 /min Cassidy Jimenez APRN-SILK SPOTTER Work Phone: [facility] 10-14-2021 17:01-0400 SaO2% (BldA) [Mass fraction] 99 % Cassidy Jimenez APRN-SILK SPOTTER Work Phone: [facility] 10-14-2021 17:01-0400 Systolic blood pressure 139 mm[Hg] Cassidy Jimenez APRN-SILK SPOTTER Work Phone: [facility] 03-28-2019 19:39-0500 BMI (Body Mass Index) 27.31 kg/m2 [facility] 03-28-2019 19:39-0500 Body Temperature 99.7 [degF] [facility] 03-28-2019 19:39-0500 Body weight 80.29 kg [facility] 03-28-2019 19:39-0500 BP Diastolic 91 mm[Hg] [facility] 03-28-2019 19:39-0500 BP Systolic 143 mm[Hg] [facility] 03-28-2019 19:39-0500 Height 171.5 cm [facility] [employer] [facility] 03-28-2019 19:39-0500 Pulse (Heart Rate) 92 /min [facility] 03-28-2019 19:39-0500 Pulse Oximetry 98 % [facility] [employer] [facility] 03-28-2019 19:39-0500 Respiratory Rate 16 /min [facility] [employer] [facility] 07-01-2018 08:13-0400 BMI (Body Mass Index) 27.87 kg/m2 [facility] 07-01-2018 08:13-0400 Body Temperature 97.9 [degF] [facility] 07-01-2018 08:13-0400 BP Diastolic 85 mm[Hg] [facility] 07-01-2018 08:13-0400 BP Systolic 121 mm[Hg] [facility] 07-01-2018 08:13-0400 Height 174 cm [facility] 07-01-2018 08:13-0400 Pulse (Heart Rate) 86 /min [facility] 07-01-2018 08:13-0400 Pulse Oximetry 99 % [facility] 07-01-2018 08:13-0400 Respiratory Rate 18 /min [facility] 07-01-2018 08:13-0400 Weight 84.37 kg [facility] Encounters Encounter Date Encounter Type Care Provider Facility Start: 12-06-2024 End: 12-06-2024 Emergency department patient visit [facility] Facility:[facility] Start: 11-29-2024 End: 11-29-2024 Office outpatient visit 15 minutes Dian Mercer SILK SPOTTER Work Phone: [facility] Comment on above: Nausea and vomiting, unspecified vomiting type (Primary Dx); Sinus pressure Start: 11-29-2024 End: 11-29-2024 ambulatory DIAN ALVARADOE [facility] Start: 11-24-2024 End: 11-24-2024 ambulatory [facility]RENA [facility] Start: 11-24-2024 End: 11-24-2024 Office outpatient new 30 minutes Nereyda Jigna Dru SILK SPOTTER Work Phone: [facility] Comment on above: Nausea and vomiting, unspecified vomiting type (Primary Dx) Start: 10-15-2024 End: 10-16-2024 Emergency department patient visit [facility] Emergency Department Start: 08-11-2024 End: 08-12-2024 Emergency department patient visit No Primary Care Physician -Emergency Department Work Phone: Start: 07-26-2024 End: 07-26-2024 Office outpatient visit 15 minutes Cassidy Contreras Lexi CHARGE MASTER ANALYST-SILK SPOTTER Work Phone: [facility] Comment on above: Viral illness (Prima ry Dx); Sore throat; Nausea and vomiting, unspecified vomiting type; Acute cough Start: 07-26-2024 ambulatory CASSIDY GIFFORD [facility] Start: 07-11-2024 End: 07-11-2024 ambulatory GURDEEP WEBBCHLOERon JUSTINRon Facility:[facility] Start: 07-11-2024 End: 07-11-2024 ambulatory ADOLFO ANDERSON Facility:[facility] Start: 05-10-2024 End: 05-10-2024 Refill Jake Velasquez MD Work Phone: Neurology Comment on above: Refill Request Start: 02-11-2024 End: 02-11-2024 Telephone encounter Jake Velasquez MD Work Phone: Neurology Comment on above: Medication Authoriza tion (ethosuximide (ZARONTIN) 250 mg capsule) Start: 10-20-2023 End: 10-20-2023 Office outpatient visit 15 minutes Pola Baltazar SILK SPOTTER Work Phone: [facility] Comment on above: Irritant contact camacho matitis due to plants, except food (Primary Dx); Vesicular rash Start: 07-13-2023 Telephone encounter Shawn ervin Research Coordinator Neurology Comment on above: Research (IRB [id number]) Start: 07-08-2023 Chart abstracting Shawn verde Research Coordinator Neurology Comment on above: Research (IRB [id number]) Start: 07-08-2023 End: 07-08-2023 Patient encounter procedure Jake Velasquez MD Work Phone: Neurology Comment on above: Generalized nonconvu lsive epilepsy (HCC) (Primary Dx); Vitamin D deficiency; Anxiety and depression; Arthralgia, unspecified joint Start: 03-02-2023 End: 03-02-2023 Emergency department patient visit NO ASSIGNED PCP GENERIC PROVIDER [facility] Emergency Medicine Comment on above: Sprain of right ankl e, unspecified ligament, initial encounter (Primary Dx); Contusion of right foot, initial encounter Start: 12-04-2022 End: 12-04-2022 Subsequent hospital visit by physician López Barrow [facility] Comment on above: Contusion of left floyd nd, initial encounter Start: 12-04-2022 End: 12-04-2022 ambulatory KELSI Salinas [facility] Start: 11-17-2022 End: 11-17-2022 Emergency department patient visit Dr. Martin Pineda Facility:[id number] Start: 08-22-2022 Refill Jake salinas MD Work Phone: Neurology Comment on above: Refill Request Start: 05-18-2022 End: 05-18-2022 Office outpatient new 30 minutes Mejia Escobar CHARGE MASTER ANALYSTblueKiwi Work Phone: [facility] Comment on above: Bilateral impacted c erumen (Primary Dx) Start: 10-14-2021 End: 10-14-2021 Office outpatient visit 15 minutes Cassidyronald Jimenez CHARGE MASTER ANALYSTblueKiwi Work Phone: [facility] Comment on above: COVID-19 virus infec tion (Primary Dx) Start: 03-28-2019 End: 03-28-2019 Office outpatient visit 25 minutes Catherine Espino Work Phone: [facility] Comment on above: Flu-like symptoms (P rimary Dx); Influenza A; Influenza B Start: 07-02-2018 End: 07-02-2018 Patient encounter procedure Nora Goldberg Work Phone: [facility] Comment on above: Strep throat (Primar y Dx) Start: 07-02-2018 End: 07-02-2018 [facility] Comment on above: Results Start: 07-01-2018 End: 07-01-2018 Letter encounter Provider Gregoria Villafana [facility] Start: 07-01-2018 End: 07-01-2018 Office outpatient visit 25 minutes Mirella Telles Work Phone: [facility] Comment on above: Acute viral pharyngi tis (Primary Dx) Start: 06-19-2017 Ambulatory Korin Caseyi ty:[facility] Start: 06-19-2017 End: 06-19-2017 Ambulatory [facility] Start: 05-02-2017 Ambulatory Jake Velasquez Facilit y:[facility] Start: 05-02-2017 End: 05-02-2017 Ambulatory Jake Velasquez Work Phone: [facility] Start: 04-27-2017 End: 04-28-2017 Ambulatory MOHIT CAMILO Facility:[facility] Start: 10-27-2016 End: 10-28-2016 Ambulatory ELOISA BAEZA Facility:[facility] Procedures Date Procedure Procedure Detail Performing Clinician Start: 10-16-2024 Radiologic exam ches t single view [employer] PA-C Work Phone: Start: 10-15-2024 Ct head/brain w/o co ntrast material [employer] PA-C Work Phone: Start: 10-15-2024 Albumin serum plasma /whole blood [facility] PA-C Work Phone: Start: 10-15-2024 Complete blood count with white cell differential, automated [facility] PA-C Work Phone: Start: 10-15-2024 Infectious agent dna /rna influenza 1st 2 types [facility] [employer] PA-C Work Phone: Start: 08-12-2024 X-ray of chest, PA a nd lateral views No Primary Care Physician Start: 07-26-2024 SARS-CoV-2 (COVID-19 ) RNA [Presence] in Unspecified specimen by LINDSAY with probe detection Cassidy Gifford CHARGE MASTER ANALYST-SILK SPOTTER Work Phone: Start: 07-26-2024 [place]adi[place]oo influenza Najma Gifford CHARGE MASTER ANALYST-SILK SPOTTER Work Phone: Start: 03-02-2023 XR ANKLE RIGHT 3+ VIEWS NO GENERIC PROVIDER Start: 03-02-2023 XR FOOT RIGHT 3+ VIEWS NO GENERIC PROVIDER Start: 03-02-2023 Radex ankle complete minimum 3 views Tracy Logan CHARGE MASTER ANALYST-SILK SPOTTER Work Phone: Start: 12-04-2022 MR HAND LEFT WO IV CONTRAST NO GENERIC PROVIDER Start: 12-04-2022 Mri upper extremity oth than jt w/o contr matrl Kelsi Desai CHARGE MASTER ANALYST-SILK SPOTTER Work Phone: Start: 10-14-2021 SARS-COV-2 RAPID Surjit Jimenez CHARGE MASTER ANALYST-SILK SPOTTER Work Phone: Start: 03-29-2019 [facility]adi[facility]oo streptococ cus group a Catherine Espino Work Phone: Start: 03-29-2019 [place] influenza Madhuri Benitez Work Phone: Start: 07-01-2018 [place]adi[place]oo streptococ cus group a Mirella Ai Telles Work Phone: Start: 07-01-2018 Throat culture Comment on above: Performed By: #### T HRC #### [place] [address] Plan of Treatment Date Care Activity Detail Author Start: 01-13-2052 Zoster Vaccines (1 of 2) Zoste r Vaccines (1 of 2) [facility] Start: 10-02-2025 DTaP/Tdap/Td Vaccine s (7 - Td or Tdap) DTaP/Tdap/Td Vaccines (7 - Td or Tdap) [facility] Start: 10-02-2025 Tetanus vaccination [facility] Start: 10-02-2025 Urine microalbumin profile DTaP,Tdap,Td Vaccine (7 - Td or Tdap) [facility] Start: 10-24-2024 COVID-19 Vaccine ( season) COVID-19 Vaccine ( season) [facility] Start: 10-24-2024 Influenza vaccination A [facility] Start: 08-12-2024 [facility] Start: 10-25-2023 Covid-19 Vaccine ( season) Covid-19 Vaccine ( season) [facility] Start: 10-25-2023 Influenza vaccination [facility] Start: 07-08-2023 End: 10-07-2023 ETHOSUXIMID/ZARONTIN [facility] Work Phone: Comment on above: Expected: 07/08/2023 , Expires: 10/07/2023 Start: 02-23-2023 Behavioral Health Screening Behavioral Health Screening [facility] Start: 2023 Screening for malign ant neoplasm of cervix [facility] Start: 10-24-2022 Covid-19 Vaccine ( season) Covid-19 Vaccine ( season) [facility] Start: 10-24-2022 Influenza vaccination [facility] Start: 02-23-2022 DEPRESSION ASSESSMENT DEPRESSION ASS ESSMENT [facility] Start: 10-24-2021 Influenza vaccination INFLUENZA VACC INE (#1) [facility] Start: 2021 Third diphtheria, tetanus and acellular pertussis (DTaP) vaccination TDAP (ADULT) [facility] Start: 2021 Urine microalbumin profile DTAP,TDAP,TD (1 - Tdap) [facility] Start: 01-13-2020 Anxiety Screening Anxiety Screening [facility] Start: 01-13-2020 CHLAMYDIA SCREENING () CHLAMYDIA SCREENING (-) [facility] Start: 01-13-2020 Depression Screening Depression Scre ening [facility] Start: 01-13-2020 GC (GONORRHEA) SCREE ALISA (18-) GC (GONORRHEA) SCREENING (18-) [facility] Start: 01-13-2020 HEPATITIS C SCREENING HEPATITIS C SC [facility] Start: 01-13-2020 Hepatitis C screening Hepatitis C [facility] Start: 01-13-2020 HIV SCREENING HIV SCREENING [facility] Start: 01-13-2020 HIV screening HIV Screening [facility] Start: 01-13-2020 Screening for Chlamy jonelle trachomatis Chlamydia Screening () [facility] Start: 01-13-2020 Tetanus vaccination TETANUS [facility] Start: 10-24-2018 Influenza vaccination [facility] Start: 07-01-2018 End: 07-02-2019 CULTURE THROAT CULTURE THROAT Microbiology Routine Acute viral pharyngitis Expected: 07/01/2018, Expires: 07/02/2019 [facility] Comment on above: Expected: 07/01/2018 , Expires: 07/02/2019 Start: 07-01-2018 End: 07-01-2018 Lab Encounter 07/01/2018 Lab Encounter Clinical Pathology/Laboratory Medicine Mirella Telles PA-C [address] [facility] [address] [place] [address] [phone] Arrived [facility] Comment on above: Arrived Start: 2018 Meningococcal B Vacc ine (1 of 2 - Standard) Meningococcal B Vaccine (1 of 2 - Standard) [facility] Start: 2018 Meningococcal B Vacc ine: Consider Based On Risk (1 of 2 - Patient Seeks Protection) Meningococcal B Vaccine: Consider Based On Risk (1 of 2 - Patient Seeks Protection) [facility] Start: 2018 Meningococcal conjug ate vaccination MCV4 VACCINE (1 - 2-dose series) [facility] Start: 2018 Screening for Chlamy jonelle trachomatis CHLAMYDIA SCREEN [facility] Start: 2017 HIV screening [facility] Start: 2017 HPV Vaccine (1 - 3-d ose series) HPV Vaccine (1 - 3-dose series) [facility] Start: 2017 Vaccination for esequiel n papillomavirus [facility] Start: 01-13-2016 PEDS TO ADULT TRANSI TION ANNUAL ASSESSMENT PEDS TO ADULT TRANSITION ANNUAL ASSESSMENT [facility] Start: 2015 HIV screening HIV SCREENING DISCUSSION [facility] Start: 2015 Varicella vaccination VARICELL A VACCINE (1 of 2 - 13+ 2-dose series) [facility] Start: 2014 Depression screening using PHQ-9 (Patient Health Questionnaire 9) score Depression Screening/Follow-Up (PHQ-2/9) [facility] Start: 2014 PEDS TO ADULT TRANSI TION INITIAL DISCUSSION PEDS TO ADULT TRANSITION INITIAL DISCUSSION [facility] Start: 2013 HPV Vaccines (1 - 2- dose series) HPV Vaccines (1 - 2-dose series) [facility] Start: 2013 Vaccination for esequiel n papillomavirus [facility] Start: 01-13-2012 MENINGOCOCCAL B: Consider based on risk (1 of 2 - Risk Bexsero 2-dose series) MENINGOCOCCAL B: Consider based on risk (1 of 2 - Risk Bexsero 2-dose series) [facility] Start: 2011 HPV VACCINE (1 - 2-d ose series) HPV VACCINE (1 - 2-dose series) [facility] Start: 2009 DTAP/TDAP/TD VACCINE (1 - Tdap) DTAP/TDAP/TD VACCINE (1 - Tdap) [facility] Start: 2005 History and physical examination, annual for health maintenance Wellness Visit [facility] Start: 2005 Well Child Visit (WC V) - Annual Well Child Visit (WCV) - Annual [facility] Start: 2003 Hepatitis A immunization HEP A VACCINE (1 of 2 - 2-dose series) [facility] Start: 2003 Cnqbhrg-epbue-btxxqm a vaccination MMR VACCINE (1 of 2 - Standard series) [facility] Start: 2003 Varicella vaccination VARICELL A VACCINE (1 of 2 - 2-dose childhood series) [facility] Start: 2002 COVID-19 VACCINE (#1) COVID-19 VACCI NE (#1) [facility] Start: 2002 Inactivated poliovir us vaccine (product) [facility] Start: 2002 Hearing Screening (#1) Hearing Scree alisa (#1) [facility] Start: 2002 GONORRHEA SCREEN [facility] Start: 2002 HEPATITIS B (1 of 3 - 3-dose series) HEPATITIS B (1 of 3 - 3-dose series) [facility] Start: 2002 Hepatitis B vaccination HEP B VACCINE (1 of 3 - 3-dose primary series) [facility] Start: 2002 Hepatitis C antibody , confirmatory test HEPATITIS C VIRUS SCREENING [facility] Start: 2002 Hepatitis C screening HEPATITI S C VIRUS SCREENING [facility] Start: 2002 HIV screening HIV Screening [facility] Start: 2002 Lipid panel Lipid Panel [facility] Start: 2002 Screening for Chlamy jonelle trachomatis [facility] Patient Education ED URI, Viral W/ Wheezing (Adult) [facility] Work Phone: Patient referral [facility] Work Phone: End: 10-15-2024 Standard ECG ECG ECG STAT One Time for 1 Occurrences starting 10/15/2024 until 10/15/2024 [facility] Comment on above: One Time for 1 Occur rences starting 10/15/2024 until 10/15/2024 Immunizations Immunization Date Immunization Notes Care Provider Fa aniceto 12-02-2020 PPD (Mantoux Test) [facility] Phone: [facility] Work Phone: 12-02-2020 tuberculin skin test ; purified protein derivative solution, intradermal [facility]: [facility] 11-28-2020 meningococcal polysaccharide (groups A, C, Y and W-135) diphtheria toxoid conjugate vaccine (MCV4P) [facility] Work Phone: [facility] 10-03-2015 meningococcal polysaccharide (groups A, C, Y and W-135) diphtheria toxoid conjugate vaccine (MCV4P) [facility] Work Phone: [facility] 10-03-2015 tetanus toxoid, redu reji diphtheria toxoid, and acellular pertussis vaccine, adsorbed [facility]: [facility] 10-19-2008 Diphtheria, tetanus toxoids and acellular pertussis vaccine, and poliovirus vaccine, inactivated [facility] Work Phone: [facility] 10-19-2008 measles, mumps and rubella virus vaccine [facility] 10-19-2008 varicella virus vaccine Brit trena [facility] Work Phone: [facility] 04-20-2003 diphtheria, tetanus toxoids and acellular pertussis vaccine, unspecified formulation Nereyda Gonsales [facility] Work Phone: [facility] 04-20-2003 haemophilus influenz ae type b vaccine, conjugate unspecified formulation Nereyda Gonsales [employer] Work Phone: [facility] 04-20-2003 hepatitis B vaccine, pediatric or pediatric/adolescent dosage Nereyda Gonsales [employer] Work Phone: [facility] 04-20-2003 poliovirus vaccine, unspecified formulation Nereyda Gonsales [employer] Work Phone: [facility] 01-17-2003 haemophilus influenz ae type b vaccine, conjugate unspecified formulation Nereyda Gonsales [employer] Work Phone: [facility] 01-17-2003 hepatitis B vaccine, pediatric or pediatric/adolescent dosage Nereyda Gonsales [employer] Work Phone: [facility] 01-17-2003 measles, mumps and rubella virus vaccine Nereyda Gonsales [facility] Work Phone: [facility] 01-17-2003 varicella virus vaccine Therese Gonsales [facility] Work Phone: [facility] 2002 diphtheria, tetanus toxoids and acellular pertussis vaccine, unspecified formulation Nereyda Gonsales [facility] Work Phone: [facility] 2002 haemophilus influenz ae type b vaccine, conjugate unspecified formulation Nereyda Gonsales [employer] Work Phone: [facility] 2002 pneumococcal conjuga te vaccine, 7 valent Nereyda Vermapsey [employer] Work Phone: [facility] 2002 haemophilus influenz ae type b vaccine, conjugate unspecified formulation Nereyda Gosnales [employer] Work Phone: [facility] 2002 pneumococcal conjuga te vaccine, 7 valent [facility] Work [facility]: [facility] 2002 diphtheria, tetanus toxoids and acellular pertussis vaccine, unspecified formulation Nereyda Vermapsey [employer] Work Phone: [facility] 2002 poliovirus vaccine, unspecified formulation Nereyda Dru [employer] Work Phone: [facility] 2002 diphtheria, tetanus toxoids and acellular pertussis vaccine, unspecified formulation Nereyda Dru [employer] Work Phone: [facility] 2002 haemophilus influenz ae type b vaccine, conjugate unspecified formulation Nereyda Dru [employer] Work Phone: [facility] 2002 hepatitis B vaccine, pediatric or pediatric/adolescent dosage Nereyda Dru [employer] Work Phone: [facility] 2002 poliovirus vaccine, unspecified formulation Nereyda Dru [employer] Work Phone: [facility] 2002 hepatitis B vaccine, pediatric or pediatric/adolescent dosage Nereyda Dru [employer] Work Phone: [facility] Payers Date Payer Category Payer Self-pay 2024 Blue Cross Blue Shie ld (Indemnity or Managed Care) - Out of State BCBS OUT OF STATE [facility] [id number] 2024 Managed Care (unspecified) [facility] [id number] 2024 Unknown [id number] 2023 Unknown [id number] 2022 Unknown [id number] 2022 Private Health Insurance [id number] 2021 Unknown [id number] 2016 Blue Cross Blue Shield QSNAN [id number] 2016 Unknown [id number] 2002 Unknown [id number] 2002 Unknown [id number] 2002 Unknown [id number] 2002 Unknown [id number] 2002 Unknown [id number] 2002 Unknown [id number] 2002 Unknown [id number] Unknown [id number] Unknown [id number] Social History Date Type Detail Facility Tobacco smoking status NHIS Unknown if ever smoked [facility] Start: 2002 Sex Assigned At Not on file [facility] Start: 05-03-2017 Tobacco smoking status NHIS Unknown if ever smoked [facility] Start: 07-01-2018 End: 10-20-2023 Tobacco smoking status NHIS Never smoker [facility] Start: 03-28-2019 End: 10-15-2024 Alcohol intake Current non-drinker of alcohol (finding) [facility] Start: 12-02-2017 End: 10-20-2023 Tobacco use and exposure Smokeless tobacco non-user [facility] Start: 07-01-2022 End: 11-29-2024 Alcohol intake Lifetime non-drinker (finding) [facility] Start: 07-09-2018 History SDOH Alcohol Frequency 1 [facility] Start: 2002 Sex Assigned At Female [facility] Start: 03-02-2023 End: 11-24-2024 Gender identity Not on file [facility] Start: 11-24-2022 End: 03-02-2023 Exposure to SARS-CoV-2 (event) Not sure [facility] Start: 03-02-2023 End: 11-24-2024 History of Social function [facility] How often to you hav e a drink containing alcohol? Never [facility] Average Number of Drinks Not on file [facility] Start: 07-13-2020 Gender identity Choose not to disclose [facility] Start: 12-02-2017 Gender identity Identifies as female gender (finding) [facility] Start: 03-28-2012 Sex Female (finding) [facility] Start: 08-12-2024 Tobacco smoking status NHIS Smokes tobacco daily (finding) [facility] Start: 11-24-2024 End: 11-29-2024 Tobacco smoking status NHIS Ex-smoker [facility] History of tobacco use Current smoker [facility] History of tobacco use Cigarette Smoker [facility] History of tobacco use Passive smoker [facility] Start: 11-24-2024 End: 11-29-2024 Tobacco use and exposure User of smokeless tobacco [facility] Start: 11-24-2024 Tobacco Comment Nicotine pouches [facility] Start: 11-29-2024 Tobacco Comment Nicotine pouch es, vapes [facility] NEGATED: Highlighted rowStart: ELAINEF History of tobacco use Passive smoker [facility] Functional Status Date Assessment Result Facility 07-25-2014 Are you deaf, or do you have serious difficulty hearing No 07/25/2014 10:51 AM EDT Shweta Springer May [facility] 07-25-2014 Are you blind, or do you have serious difficulty seeing, even when wearing glasses No 07/25/2014 10:51 AM EDT Elba Springer Ma [facility] 07-25-2014 Do you have serious difficulty walking or climbing stairs No 07/25/2014 10:51 AM EDT Elba Springer Ma [facility] 07-25-2014 Do you have difficul ty dressing or bathing No 07/25/2014 10:51 AM EDT Elba Springer Ma [facility] Mental Status Date Assessment Result Facility 08-12-2024 Cognitive function Level Of Cons ciousness Awake;Alert;Appropriate;Fol lows Commands [facility] Work Phone: 07-25-2014 Because of a physica l, mental, or emotional condition, do you have serious difficulty concentrating, remembering, or making decisions No 07/25/2014 10:51 AM EDT Elba Springer Ma [facility] Clinical Notes 10-14-2021 to 11-29-2024 Patient InstructionsAttachDian Duarte CNP - 11/29/2024 4:32 PM EDTPatient InstructionsAttachNereyda Russo CNP - 11/24/2024 12:03 PM EDTDischarge InstructionsAttachments Note Date & Type Note Facility 11-29-2024 Instructions Dian Mercer CNP - 11/29/2024 4:41 PM EDT Rest and increase fluids Motrin or Aleve/Tylenol for pain Zofran as needed for nausea/vomiting. You were given a dose in the clinic Recommend clear liquid diet for the next 24 hours, then advance as tolerated Recommend taking an bovf-qpr-ljnhngg decongestant for sinus symptoms. Such as Claritin-D, Zyrtec-D, or Sudafed If symptoms worsen, change, or new symptoms develop go instead immediately to the nearest emergency room for further evaluation and treatment. Follow up with family doctor The following attachments cannot be sent through Care Everywhere.Nausea and Vomiting (Mozambican)documented in this encounter [facility] 11-29-2024 Note Patient Name: Jose Manuel jensen Urgent Care Location: [facility] [address] [place] [id number] Date Of : Date Of Visit: 2000 11/29/2024 MRN# Provider: [id number] Dian Mercer CNP Chief Complaint Patient presents with URI Sinus pressure, emesis, floyd, x 1 night Assessment & Plan 1. Nausea and vomiting, unspecified vomiting type ondansetron (ZOFRAN-ODT) disintegrating tablet 4 mg ondansetron (ZOFRAN-ODT) 4 MG disintegrating tablet 2. Sinus pressure No follow-ups on file. Medical Decision Making Presents with nausea and vomiting as well as sinus pressure. Possible gastroenteritis. Will start on Zofran, dose given in clinic. Discussed a clear liquid diet for the next 24 hours and then advancing as tolerated. Discussed being seen in the ER for new or worsening symptoms. Also recommend taking kxla-omq-ykntfuu decongestant for sinus symptoms. Likely viral at this time. Ehhp-vhv-defyehg pain medication as needed. Rest. Follow-up with PCP as needed. Work note provided. Patient discharged in stable condition. Rest and increase fluids Motrin or Aleve/Tylenol for pain Zofran as needed for nausea/vomiting. You were given a dose in the clinic Recommend clear liquid diet for the next 24 hours, then advance as tolerated Recommend taking an ygbb-etc-zrqcitp decongestant for sinus symptoms. Such as Claritin-D, Zyrtec-D, or Sudafed If symptoms worsen, change, or new symptoms develop go instead immediately to the nearest emergency room for further evaluation and treatment. Follow up with family doctor This note was created using dictation software. While every effort has been made to ensure accuracy, there may be fire support specialist errors due to software interpretation. Imaging Documentation After reviewing the chief complaint, HPI, review of systems and social history, and exam-at this time no imaging is ordered during the patient encounter. Additional Clinical Comments Discussed over the counter medications for symptomatic management and potential side effects of medications. Educated patient and/or guardian about signs and symptoms that would warrant immediate evaluation in the emergency room. Recommended that they should return to urgent care, make an appointment with their PCP, or go to the emergency room if symptoms persist or get acutely worse. Subjective 24 y.o. female presents with URI (Sinus pressure, emesis, floyd, x 1 night ) 24-year-old female presents to urgent care with her boyfriend for symptoms that started last night. States that she started vomiting last night and through today. States unable to keep anything down today. Reports having soft stool and abdominal cramping. States she took naproxen for pain. Also reports having sinus pain/pressure. Denies runny nose. Denies fever. Medical record reviewed and noted to have been seen 5 days ago for similar symptoms. Was given Zofran and a work note. Denies concern for . States her period is due within the next week. Declined test. Review Of Systems Review of Systems Constitutional: Negative for chills, fatigue and fever. HENT: Negative for ear pain, rhinorrhea, sinus pressure and sore throat. Respiratory: Negative for cough, shortness of breath and wheezing. Gastrointestinal: Positive for abdominal pain, nausea and vomiting. Negative for diarrhea. Musculoskeletal: Negative for myalgias. Neurological: Positive for headaches. Medical History Past Medical History: Diagnosis Date Anxiety Depression Epilepsy (HCC) Vitamin D insufficiency Past Surgical History: Procedure Laterality Date ADENOIDECTOMY Problem List[1] Social History Social History[2] Family History History reviewed. No pertinent family history. Objective Physical Exam BP 131/86 (BP Location: Right arm, Patient Position: Sitting) Pulse 96 Comment: r/c Temp 99 degrees F (37.2 degrees C) (Tympanic) Resp 16 Ht 5' 8 Wt 68 kg (150 lb) LMP 11/03/2024 (Approximate) Comment: LMP start date / kse SpO2 98% BMI 22.81 kg/m Vision/Hearing Exam:No results found. Physical Exam Vitals and nursing note reviewed. Constitutional: Appearance: Normal appearance. HENT: Head: Normocephalic and atraumatic. Right Ear: External ear normal. There is impacted cerumen. Left Ear: External ear normal. There is impacted cerumen. Nose: No congestion or rhinorrhea. Mouth/Throat: Mouth: Mucous membranes are moist. Pharynx: Oropharynx is clear. Eyes: Pupils: Pupils are equal, round, and reactive to light. Cardiovascular: Rate and Rhythm: Normal rate and regular rhythm. Heart sounds: No murmur heard. Pulmonary: Effort: Pulmonary effort is normal. Breath sounds: Normal breath sounds. No wheezing or rhonchi. Abdominal: General: Abdomen is flat. Bowel sounds are normal. There is no distension. Palpations: Abdomen is soft. Tenderness: There is no abdominal tendernes (more content not included)... [facility] 11-29-2024 History of Presen t illness Narrative Images from the original note were not included. Patient Name: [facility] Location: [facility] [address] [place] [id number] Date Of : Date Of Visit: 2000 11/29/2024 MRN# Provider: [id number] Dian Mercer CNP Chief Complaint Patient presents with URI Sinus pressure, emesis, floyd, x 1 night Assessment & Plan 1. Nausea and vomiting, unspecified vomiting type ondansetron (ZOFRAN-ODT) disintegrating tablet 4 mg ondansetron (ZOFRAN-ODT) 4 MG disintegrating tablet 2. Sinus pressure No follow-ups on file. Medical Decision Making Presents with nausea and vomiting as well as sinus pressure. Possible gastroenteritis. Will start on Zofran, dose given in clinic. Discussed a clear liquid diet for the next 24 hours and then advancing as tolerated. Discussed being seen in the ER for new or worsening symptoms. Also recommend taking pzfl-gzd-yvmnply decongestant for sinus symptoms. Likely viral at this time. Dabl-rxs-zxmatjf pain medication as needed. Rest. Follow-up with PCP as needed. Work note provided. Patient discharged in stable condition. Rest and increase fluids Motrin or Aleve/Tylenol for pain Zofran as needed for nausea/vomiting. You were given a dose in the clinic Recommend clear liquid diet for the next 24 hours, then advance as tolerated Recommend taking an nush-tuz-wsadpey decongestant for sinus symptoms. Such as Claritin-D, Zyrtec-D, or Sudafed If symptoms worsen, change, or new symptoms develop go instead immediately to the nearest emergency room for further evaluation and treatment. Follow up with family doctor This note was created using dictation software. While every effort has been made to ensure accuracy, there may be fire support specialist errors due to software interpretation. Imaging Documentation After reviewing the chief complaint, HPI, review of systems and social history, and exam-at this time no imaging is ordered during the patient encounter. Additional Clinical Comments Discussed over the counter medications for symptomatic management and potential side effects of medications. Educated patient and/or guardian about signs and symptoms that would warrant immediate evaluation in the emergency room. Recommended that they should return to urgent care, make an appointment with their PCP, or go to the emergency room if symptoms persist or get acutely worse. Subjective 24 y.o. female presents with URI (Sinus pressure, emesis, floyd, x 1 night ) 24-year-old female presents to urgent care with her boyfriend for symptoms that started last night. States that she started vomiting last night and through today. States unable to keep anything down today. Reports having soft stool and abdominal cramping. States she took naproxen for pain. Also reports having sinus pain/pressure. Denies runny nose. Denies fever. Medical record reviewed and noted to have been seen 5 days ago for similar symptoms. Was given Zofran and a work note. Denies concern for . States her period is due within the next week. Declined test. Review Of Systems Review of Systems Constitutional: Negative for chills, fatigue and fever. HENT: Negative for ear pain, rhinorrhea, sinus pressure and sore throat. Respiratory: Negative for cough, shortness of breath and wheezing. Gastrointestinal: Positive for abdominal pain, nausea and vomiting. Negative for diarrhea. Musculoskeletal: Negative for myalgias. Neurological: Positive for headaches. Medical History Past Medical History: Diagnosis Date Anxiety Depression Epilepsy (HCC) Vitamin D insufficiency Past Surgical History: Procedure Laterality Date ADENOIDECTOMY Problem List[1] Social History Social History[2] Family History History reviewed. No pertinent family history. Objective Physical Exam BP 131/86 (BP Location: Right arm, Patient Position: Sitting) Pulse 96 Comment: r/c Temp 99 F (37.2 C) (Tympanic) Resp 16 Ht 5' 8 Wt 68 kg (150 lb) LMP 11/03/2024 (Approximate) Comment: LMP start date / kse SpO2 98% BMI 22.81 kg/m Vision/Hearing Exam:No results found. Physical Exam Vitals and nursing note reviewed. Constitutional: Appearance: Normal appearance. HENT: Head: Normocephalic and atraumatic. Right Ear: External ear normal. There is impacted cerumen. Left Ear: External ear normal. There is impacted cerumen. Nose: No congestion or rhinorrhea. Mouth/Throat: Mouth: Mucous membranes are moist. Pharynx: Oropharynx is clear. Eyes: Pupils: Pupils are equal, round, and reactive to light. Cardiovascular: Rate and Rhythm: Normal rate and regular rhythm. Heart sounds: No murmur heard. Pulmonary: Effort: Pulmonary effort is normal. Breath sounds: Normal breath sounds. No wheezing or rhonchi. Abdominal: General: Abdomen is flat. Bowel sounds are normal. There is no distension. Palpations: Abdomen is soft. Tenderness: There is no abdominal tenderness. There is no guarding. Musculoskeletal: Cervical back: Normal range of motion and neck supple. Skin: General: Skin is warm and dry. Capillary Refill: Capillary refill takes less than 2 seconds. Neurological: General: No focal deficit present. Mental Status: She is alert and oriented to person, place, and time. Procedure Notes Procedures Results No results found for this or any previous visit (from the past week). No orders to display Orders Placed This Visit No orders of the defined types were placed in this encounter. Medication List At End Of Visit Current Medications[3] Patient Instructions Rest and increase fluids Motrin or Aleve/Tylenol for pain Zofran as needed for nausea/vomiting. You were given a dose in the clinic Recommend clear liquid diet for the next 24 hours, then advance as tolerated Recommend taking an kwaw-kwk-sytirev decongestant for sinus symptoms. Such as Claritin-D, Zyrtec-D, or Sudafed If symptoms worsen, change, or new symptoms develop go instead immediately to the nearest emergency room for further evaluation and treatment. Follow up with family doctor [1] Patient Active Problem List Diagnosis Encopresis Generalized nonconvulsive epilepsy (HCC) [2] Social History Tobacco Use Smoking status: Former Types: Cigarettes Passive exposure: Current Smokeless tobacco: Current Tobacco comments: Nicotine pouches, vapes Vaping Use Vaping status: Every Day Substances: Nicotine, Flavoring Devices: Disposable Substance Use Topics Alcohol use: Never Drug use: Never [3] Current Outpatient Medications Medication Sig Dispense Refill folic acid (FOLVITE) 1 MG tablet Take 1 (one) tablet (1,000 mcg total) by mouth daily . sertraline (ZOLOFT) 50 MG tablet Take 1 (one) tablet (50 mg total) by mouth daily . ergocalciferol (ERGOCALCIFEROL) 1,250 mcg (50,000 unit) capsule Take 1 (one) capsule (50,000 Units total) by mouth . (Patient not taking: Reported on 11/29/2024 .) ethosuximide (ZARONTIN) 250 mg capsule Take (2) tablets by mouth in the AM and (3) tablets in the PM (=1250 mg/d) (Patient not taking: Reported on 11/29/2024) ondansetron (ZOFRAN-ODT) 4 MG disintegrating tablet Dissolve 1 (one) tablet (4 mg total) on top of tongue every 6 (six) hours as needed (nausea/vomiting) . 12 tablet 0 Current Facility-Administered Medications Medication Dose Route Frequency Provider Last Rate Last Admin ondansetron (ZOFRAN-ODT) disintegrating tablet 4 mg 4 mg Oral Once Dian Mercer CNP documented in this encounter [facility] 11-24-2024 Instructions Nereyda Gonsales CNP - 11/24/2024 12:07 PM EDT Close follow up with Primary care physician. The following attachments cannot be sent through Care Everywhere.Nausea and Vomiting (Mozambican)documented in this encounter [facility] 11-24-2024 Note Patient Name: Jose Manuel jensen Urgent Care Location: [facility] [address] [id number] Date Of : Date Of Visit: 2000 11/24/2024 MRN# Provider: [id number] Nereyda Gonsales CNP Chief Complaint Patient presents with Emesis Emesis x yesterday, feels it was from eating uncooked eggs. Nausea today, no emesis. Work note needed. Assessment & Plan 1. Nausea and vomiting, unspecified vomiting type ondansetron (ZOFRAN-ODT) 4 MG disintegrating tablet No follow-ups on file. Medical Decision Making Considered: Viral URI, Covid-19, Influenza, Bronchitis, Pneumonia, Strep Pharyngitis, Viral Pharyngitis, Acute sinusitis, URI, otitis media, otitis externa. Symptom management discussed. OTC medications discussed and education provided. Close follow up with Primary Care Provider. Additional Clinical Comments Diagnosis of nausea and vomiting concluded based upon patient length of symptoms, textbook symptoms, and physical exam findings. Discussed with patient zofran prescribed for nausea. Discussed with patient symptoms to monitor and when to seek further evaluation. Patient verbalized understanding. Subjective 24 y.o. female presents with Emesis (Emesis x yesterday, feels it was from eating uncooked eggs. Nausea today, no emesis. Work note needed.) Patient presents for emesis x Yesterday 11/23/2024. Patient states began after eating uncooked eggs. Patient states nausea today but no episodes of emesis. Patient requesting work excuse. Patient states no chance of . Illness The current episode started yesterday. The problem has been gradually improving since onset. Associated symptoms include nausea and vomiting. Pertinent negatives include no congestion, sore throat, fever, coughing or diarrhea. Review Of Systems Review of Systems Constitutional: Negative for fever. HENT: Negative for congestion, sore throat, trouble swallowing and voice change. Respiratory: Negative for cough. Gastrointestinal: Positive for nausea and vomiting. Negative for diarrhea. Medical History Past Medical History: Diagnosis Date Anxiety Depression Epilepsy (HCC) Vitamin D insufficiency Past Surgical History: Procedure Laterality Date ADENOIDECTOMY Problem List[1] Social History Social History[2] Family History History reviewed. No pertinent family history. Objective Physical Exam BP 122/64 (BP Location: Right arm, Patient Position: Sitting, BP Cuff Size: Adult) Pulse 74 Temp 98.7 degrees F (37.1 degrees C) (Oral) Resp 16 Ht 5' 8 Wt 68 kg (150 lb) LMP 11/03/2024 (Approximate) Comment: LMP start date / kse SpO2 99% BMI 22.81 kg/m Vision/Hearing Exam:No results found. Physical Exam Vitals and nursing note reviewed. Constitutional: General: She is not in acute distress. Appearance: Normal appearance. She is not ill-appearing, toxic-appearing or diaphoretic. HENT: Mouth/Throat: Mouth: Mucous membranes are moist. Cardiovascular: Rate and Rhythm: Normal rate and regular rhythm. Heart sounds: Normal heart sounds. Pulmonary: Effort: Pulmonary effort is normal. Breath sounds: Normal breath sounds. Abdominal: Palpations: Abdomen is soft. Tenderness: There is no abdominal tenderness. Skin: General: Skin is warm and dry. Neurological: General: No focal deficit present. Mental Status: She is alert. Psychiatric: Attention and Perception: Attention normal. Mood and Affect: Mood and affect normal. Speech: Speech normal. Behavior: Behavior normal. Behavior is cooperative. Procedure Notes Procedures Results No results found for this or any previous visit (from the past week). No orders to display Orders Placed This Visit No orders of the defined types were placed in this encounter. Medication List At End Of Visit Current Medications[3] Patient Instructions Close follow up with Primary care physician. [1] There is no problem list on file for this patient. [2] Social History Tobacco Use Smoking status: Former Types: Cigarettes Passive exposure: Current Smokeless tobacco: Current Tobacco comments: Nicotine pouches Vaping Use Vaping status: Every Day Substances: Nicotine, Flavoring Devices: Disposable Substance Use Topics Alcohol use: Never Drug use: Never [3] Current Outpatient Medications Medication Sig Dispense Refill ergocalciferol (ERGOCALCIFEROL) 1,250 mcg (50,000 unit) capsule Take 1 (one) capsule (50,000 Units total) by mouth . ethosuximide (ZARONTIN) 250 mg capsule Take (2) tablets by mouth in the AM and (3) tablets in the PM (=1250 mg/d) folic acid (FOLVITE) 1 MG tablet Take 1 (one) tablet (1,000 mcg total) by mouth daily . ondansetron (ZOFRAN-ODT) 4 MG disintegrating tablet Dissolve 1 (one) tablet (4 mg total) on top of tongue every 8 (eight) hours as needed for nausea . 12 tablet 0 sertraline (ZOLOFT) 50 MG tablet Take 1 (one) tablet (more content not included)... [facility] 11-24-2024 History of Presen t illness Narrative Images from the original note were not included. Patient Name: [facility] Urgent Care Location: [facility] [address] [facility] [id number] Date Of : Date Of Visit: 2000 11/24/2024 MRN# Provider: [id number] Nereyda Gonsales CNP Chief Complaint Patient presents with Emesis Emesis x yesterday, feels it was from eating uncooked eggs. Nausea today, no emesis. Work note needed. Assessment & Plan 1. Nausea and vomiting, unspecified vomiting type ondansetron (ZOFRAN-ODT) 4 MG disintegrating tablet No follow-ups on file. Medical Decision Making Considered: Viral URI, Covid-19, Influenza, Bronchitis, Pneumonia, Strep Pharyngitis, Viral Pharyngitis, Acute sinusitis, URI, otitis media, otitis externa. Symptom management discussed. OTC medications discussed and education provided. Close follow up with Primary Care Provider. Additional Clinical Comments Diagnosis of nausea and vomiting concluded based upon patient length of symptoms, textbook symptoms, and physical exam findings. Discussed with patient zofran prescribed for nausea. Discussed with patient symptoms to monitor and when to seek further evaluation. Patient verbalized understanding. Subjective 24 y.o. female presents with Emesis (Emesis x yesterday, feels it was from eating uncooked eggs. Nausea today, no emesis. Work note needed.) Patient presents for emesis x Yesterday 11/23/2024. Patient states began after eating uncooked eggs. Patient states nausea today but no episodes of emesis. Patient requesting work excuse. Patient states no chance of . Illness The current episode started yesterday. The problem has been gradually improving since onset. Associated symptoms include nausea and vomiting. Pertinent negatives include no congestion, sore throat, fever, coughing or diarrhea. Review Of Systems Review of Systems Constitutional: Negative for fever. HENT: Negative for congestion, sore throat, trouble swallowing and voice change. Respiratory: Negative for cough. Gastrointestinal: Positive for nausea and vomiting. Negative for diarrhea. Medical History Past Medical History: Diagnosis Date Anxiety Depression Epilepsy (HCC) Vitamin D insufficiency Past Surgical History: Procedure Laterality Date ADENOIDECTOMY Problem List[1] Social History Social History[2] Family History History reviewed. No pertinent family history. Objective Physical Exam BP 122/64 (BP Location: Right arm, Patient Position: Sitting, BP Cuff Size: Adult) Pulse 74 Temp 98.7 F (37.1 C) (Oral) Resp 16 Ht 5' 8 Wt 68 kg (150 lb) LMP 11/03/2024 (Approximate) Comment: LMP start date / kse SpO2 99% BMI 22.81 kg/m Vision/Hearing Exam:No results found. Physical Exam Vitals and nursing note reviewed. Constitutional: General: She is not in acute distress. Appearance: Normal appearance. She is not ill-appearing, toxic-appearing or diaphoretic. HENT: Mouth/Throat: Mouth: Mucous membranes are moist. Cardiovascular: Rate and Rhythm: Normal rate and regular rhythm. Heart sounds: Normal heart sounds. Pulmonary: Effort: Pulmonary effort is normal. Breath sounds: Normal breath sounds. Abdominal: Palpations: Abdomen is soft. Tenderness: There is no abdominal tenderness. Skin: General: Skin is warm and dry. Neurological: General: No focal deficit present. Mental Status: She is alert. Psychiatric: Attention and Perception: Attention normal. Mood and Affect: Mood and affect normal. Speech: Speech normal. Behavior: Behavior normal. Behavior is cooperative. Procedure Notes Procedures Results No results found for this or any previous visit (from the past week). No orders to display Orders Placed This Visit No orders of the defined types were placed in this encounter. Medication List At End Of Visit Current Medications[3] Patient Instructions Close follow up with Primary care physician. [1] There is no problem list on file for this patient. [2] Social History Tobacco Use Smoking status: Former Types: Cigarettes Passive exposure: Current Smokeless tobacco: Current Tobacco comments: Nicotine pouches Vaping Use Vaping status: Every Day Substances: Nicotine, Flavoring Devices: Disposable Substance Use Topics Alcohol use: Never Drug use: Never [3] Current Outpatient Medications Medication Sig Dispense Refill ergocalciferol (ERGOCALCIFEROL) 1,250 mcg (50,000 unit) capsule Take 1 (one) capsule (50,000 Units total) by mouth . ethosuximide (ZARONTIN) 250 mg capsule Take (2) tablets by mouth in the AM and (3) tablets in the PM (=1250 mg/d) folic acid (FOLVITE) 1 MG tablet Take 1 (one) tablet (1,000 mcg total) by mouth daily . ondansetron (ZOFRAN-ODT) 4 MG disintegrating tablet Dissolve 1 (one) tablet (4 mg total) on top of tongue every 8 (eight) hours as needed for nausea . 12 tablet 0 sertraline (ZOLOFT) 50 MG tablet Take 1 (one) tablet (50 mg total) by mouth daily . No current facility-administered medications for this visit. documented in this encounter [facility] 10-16-2024 Physician Emergency department Note This is a 24-year-old female seen by LANI Alba. patient already has been set for discharge but apparently Nora wanted to make sure all the labs are back and x-rays are normal before she is discharged home. Labs and x-rays are all unremarkable. Patient is sitting at the edge of the bed ready to go home. Stay on some clear liquids. Rest in quiet dark room. Ibuprofen Tylenol for pain. Recheck with your primary care provider in 2-4 days. Return if worse headache chest pain/pressure, discharged home in improved stable condition. Patient voices understanding of discharge instructions. Mohit Carson DO 10/16/24 0327 [facility] 10-16-2024 Emergency department Note This is a 24-year-old female seen by LANI Alba. patient already has been set for discharge but apparently Nora wanted to make sure all the labs are back and x-rays are normal before she is discharged home. Labs and x-rays are all unremarkable. Patient is sitting at the edge of the bed ready to go home. Stay on some clear liquids. Rest in quiet dark room. Ibuprofen Tylenol for pain. Recheck with your primary care provider in 2-4 days. Return if worse headache chest pain/pressure, discharged home in improved stable condition. Patient voices understanding of discharge instructions. Mohit Carson DO 10/16/24 0327 Emergency Department Report [facility] EMERGENCY DEPARTMENT Service Date:.10/16/24 PCP: No primary care provider on file. Chief Complaint: Chief Complaint Patient presents with Chest Pain Pt presents with chest pain, onset 3 days ago. Has cough, headache, and shortness of breath, as well as fatigue. Has hx of epilepsy, last reported seizure was when she was 14. Also on menses at this time. HPI Lin Decker is a 24 y.o. female. History is obtained from the patient. Patient states that she has been having chest pain intermittently over the last 3 days. She states that she also has developed a severe headache mostly today. She states that she feels intermittently short of breath and has a slight cough. She states she is mostly concerned about the headache. States it her mother had a stroke a couple of days ago and her pain is behind the eyes just like her mother's was. She is very concerned that she may be having a stroke our brain tumor as well. States she does have a history of seizures but has not had 1 since she was 14. She states she sees [facility].. Review of Systems: Review of Systems Review of Systems negative other than stated in the HPI Past Medical History: Past Medical History[1] Past Surgical History: Past Surgical History[2] Allergies: Allergies[3] Medications: Patient's Medications New Prescriptions No medications on file Previous Medications ERGOCALCIFEROL 1.25 MG (28979 UT) CAP Take 1 capsule by mouth. ETHOSUXIMIDE 250 MG CAP Take (2) tablets by mouth in the AM and (3) tablets in the PM (=1250 mg/d) FOLIC ACID 1 MG TABLET Take 1 tablet by mouth daily. ONDANSETRON 4 MG TAB DISPERSIBLE TABLET Take 1 tablet by mouth every 8 hours as needed for Nausea. PSEUDOEPHEDRINE-BROMPHENIRAMINE -DEXTROMETHORPHAN 30-2-10 MG/5ML SYRUP Take 10 mL by mouth every 6 hours as needed. SERTRALINE 50 MG TAB TABLET Take 50 mg by mouth Daily (with dinner). TRIAMCINOLONE 0.1 % CREAM CREAM Apply twice daily as needed Modified Medications No medications on file Discontinued Medications No medications on file Family History: Family History Problem Relation Age of Onset Hypertension Mother No known problems Father Hypertension Maternal Grandmother Heart Surgery Maternal Grandmother Hypertension Maternal Grandfather Stroke Maternal Grandfather No known problems Paternal Grandmother No known problems Paternal Grandfather Social History: Social History Socioeconomic History Marital status: Single Spouse name: Not on file Number of children: Not on file Years of education: Not on file Highest education level: Not on file Occupational History Not on file Tobacco Use Smoking status: Never Smokeless tobacco: Never Vaping Use Vaping status: Never Used Substance and Sexual Activity Alcohol use: No Drug use: No Sexual activity: Not on file Other Topics Concern Service Not Asked Blood Transfusions Not Asked Caffeine Concern Not Asked Occupational Exposure Not Asked Hobby Hazards Not Asked Sleep Concern Not Asked Stress Concern Not Asked Weight Concern Not Asked Special Diet Not Asked Back Care Not Asked Exercise Not Asked Bike Helmet Not Asked Seat Belt Not Asked Domestic Violence No Social History Narrative Not on file Social Drivers of Health Financial Resource Strain: Not on file Food Insecurity: Not on file Transportation Needs: Not on file Physical Activity: Not on file Stress: Not on file Social Connections: Not on file Personal Safety: Not on file Housing Stability: Not on file Physical Exam: Physical Exam Vitals and nursing note reviewed. Constitutional: Appearance: Normal appearance. HENT: Head: Normocephalic and atraumatic. Eyes: Conjunctiva/sclera: Conjunctivae normal. Cardiovascular: Rate and Rhythm: Normal rate and regular rhythm. Pulmonary: Effort: Pulmonary effort is normal. No respiratory distress. Breath sounds: Normal breath sounds. No wheezing. Abdominal: General: There is no distension. Palpations: Abdomen is soft. Tenderness: There is no abdominal tenderness. There is no guarding. Musculoskeletal: General: No deformity or signs of injury. Normal range of motion. Cervical back: Normal range of motion and neck supple. Skin: Findings: No rash. Neurological: General: No focal deficit present. Mental Status: She is alert and oriented to person, place, and time. Cranial Nerves: No cranial nerve deficit. Sensory: No sensory deficit. Motor: No weakness. Coordination: Coordination normal. Psychiatric: Behavior: Behavior normal. Thought Content: Thought content normal. Judgment: Judgment normal. Vital Signs During ED Visit Patient Vitals for the past 24 hrs: BP Temp Temp src Pulse Resp SpO2 Weight 10/16/24 0021 125/72 -- -- 72 16 98 % -- 10/15/24 2341 128/77 -- -- 77 16 98 % -- 10/15/242233 -- -- -- -- -- -- 79.4 kg (175 lb) 10/15/242231 (!) 150/99 98.1 F (36.7 C) Oral 78 18 100 % -- Orders/Results: Results for orders placed or performed during the hospital encounter of 10/15/24 [facility] 1 - NASOPHARYNGEAL Specimen: NASOPHARYNGEAL; Fluid/Swab Result Value Ref Range SARS COV 2 RNA, QL REAL TIME RT PCR NOT DETECTED NOT DETECTED NARRATIVE -1 This test was performed using isothermal LINDSAY for the qualitative detection of SARS-CoV-2 nucleic acid. INFLUENZA A AND B, PCR Result Value Ref Range INFLUENZA A NEGATIVE NEGATIVE INFLUENZA B NEGATIVE NEGATIVE CHEM 7 (LYTES,BUN,CREA,GLUC) Result Value Ref Range Glucose 97 70 - 100 MG/DL BUN 11 7 - 20 mg/dL CREATININE SERUM 0.60 (L) 0.70 - 1.20 mg/dL SODIUM 138 137 - 145 MMOL/L Potassium 4.4 3.5 - 5.1 MMOL/L CHLORIDE 106 98 - 107 MMOL/L CARBON DIOXIDE (CO2) 24 22 - 30 MMOL/L ESTIMATED GFR 133 ml/min/1.73sq.m GFR COMMENT Average GFR for 18-29 years old = 116. HEPATIC FUNCTION PANEL Result Value Ref Range Albumin 4.1 2.9 - 5.3 G/DL BILIRUBIN, TOTAL 0.2 0.2 - 1.3 mg/dL ALKALINE PHOSPHATASE 125 38 - 126 U/L AST 20 14 - 36 U/L BILIRUBIN, DIRECT 0.1 0.0 - 0.4 MG/DL PROTEIN, TOTAL 6.9 6.3 - 8.2 g/dL ALT 12 <35 U/L LIPASE Result Value Ref Range LIPASE 88 23 - 300 U/L CBC, EDIF, PLATELET Result Value Ref Range WBC (WHITE BLOOD COUNT) 7.8 3.6 - 11.0 10*3/uL RBC 4.39 4.0 - 5.4 10*6/uL HEMOGLOBIN (HGB) 13.2 12.0 - 16.0 G/DL HEMATOCRIT (HCT) 38.5 36.0 - 48.0 % Mean Cell Volume 87.7 80.0 - 100.0 FL Mean Cell HGB 30.1 26.0 - 35.0 PG Mean Cell HGB Concentration 34.3 27.0 - 37.0 G/DL RBC Distribution 12.9 11.5 - 14.5 % PLATELET COUNT 311 130 - 400 10*3/uL Mean Platelet Volume 8.2 7.4 - 11.0 FL DIFFERENTIAL TYPE AUTO DIFF % NEUTROPHILS 60.0 37.0 - 75.0 % LYMPHOCYTE 27.5 20.0 - 55.0 % MONOCYTE % 10.7 (H) 0.0 - 10.0 % EOSINOPHIL % 1.3 0.0 - 11.0 % BASOPHIL % 0.5 0.0 - 2.0 % Absolute Neutrophil Count 4.7 1.4 - 6.5 10*3/uL LYMPHOCYTES, ABSOLUTE 2.1 1.2 - 3.4 10*3/uL MONOCYTES, ABSOLUTE 0.8 (H) 0.0 - 0.7 10*3/uL ABSOLUTE EOSINOPHIL COUNT 0.1 0.0 - 0.7 10*3/uL ABSOLUTE BASOPHIL COUNT 0.0 0.0 - 0.2 10*3/uL D-DIMER,QUANTITATIVE Result Value Ref Range D-DIMER <0.27 <0.50 g/ml TROPONIN I, HIGH SENSITIVITY Result Value Ref Range TROPONIN I, HIGH SENSITIVITY <2 0 - 12 pg/mL Radiographic Imaging CT HEAD WITHOUT CONTRAST Final Result IMPRESSION: 1. No acute intracranial abnormality. No hemorrhage or mass effect. XR CHEST 1 VIEW PORTABLE (Results Pending) Procedures: Procedures EKG RESULTS RHYTHM: Normal sinus rhythm RATE : 71 AXIS : Normal ST SEGMENT CHANGES : No ST segment elevation or depression to indicate a STEMI COMPARISON TO PRIOR : No previous EKGs immediately available for comparison EKG was interpreted by Attending Physician here in the emergency room ED Summary/MDM Patient has been stable here in the emergency room. Her electrolytes are stable kidney function is good liver and pancreas enzymes are normal D-dimer is normal white count is normal hemoglobin is stable and normal COVID and influenza swabs were negative. Her CT scan of her head does not show any signs of a stroke intracranial mass or hemorrhage. Her chest x-ray shows no obvious pneumonia or pneumothorax. I discussed all these results with the patient and her fiance. I think that likely this is more of a viral illness giving her the headache and chest discomfort could also be related to anxiety. At this time I do not think this represents a myocardial infarction or cardiac cause of her symptoms. I do not think that she is having a TIA or CVA. I would recommend the patient follow up with the primary care doctor. If she has changing worsening or developing symptoms of any kind she can return for re-evaluation. She is comfortable with this plan we will use Tylenol and ibuprofen at home along with rest and fluids. Clinical Impression: 1. Chest pain, unspecified type 2. Acute nonintractable headache, unspecified headache type No follow-ups on file. New Prescriptions No medications on file Discontinued Medications No medications on file An After Visit Summary was printed and given to the patient with above information. Wanda Aguilar PA-C [facility] Emergency Department [place], [place] . . [1] Past Medical History: Diagnosis Date Depression Seizure Seizures [2] Past Surgical History: Procedure Laterality Date ADENOIDECTOMY [3] Allergies Allergen Reactions Amoxicillin Rash Wanda Aguilar PA-C 10/16/24 0050 Cosigned by Mohit Carson DO at 10/16/2024 6:09 AM EDT Associated attestation - Mohit Carson DO - 10/16/2024 6:09 AM EDT I agree with the advance practice provider's assessment, physical exam, and treatment plan for this patient. I was available for consultation on this patient and I did see and talk with the patient briefly before she was discharged home. documented in this encounter [facility] 10-16-2024 Hospital Discharg e instructions Mohit Carson DO - 10/16/2024 3:24 AM EDT Rest in quiet dark room. Increase fluids. Drink plenty of water. Tylenol, ibuprofen for headache. Recheck with primary care provider in 2-4 days. Call office for appointment. Return if worse chest pain/pressure, jaw/neck/arm pain, shortness of breath, diaphoresis, headache, nausea/vomiting, weakness/lethargy, poor oral intake, fever. The following attachments cannot be sent through Care Everywhere.Chest Pain (Mozambican)Headache (Mozambican)documented in this encounter [facility] 10-15-2024 Physician Emergency department Note Emergency Department Report [facility] EMERGENCY DEPARTMENT Service Date:.10/16/24 PCP: No primary care provider on file. Chief Complaint: Chief Complaint Patient presents with Chest Pain Pt presents with chest pain, onset 3 days ago. Has cough, headache, and shortness of breath, as well as fatigue. Has hx of epilepsy, last reported seizure was when she was 14. Also on menses at this time. HPI Lin Decker is a 24 y.o. female. History is obtained from the patient. Patient states that she has been having chest pain intermittently over the last 3 days. She states that she also has developed a severe headache mostly today. She states that she feels intermittently short of breath and has a slight cough. She states she is mostly concerned about the headache. States it her mother had a stroke a couple of days ago and her pain is behind the eyes just like her mother's was. She is very concerned that she may be having a stroke our brain tumor as well. States she does have a history of seizures but has not had 1 since she was 14. She states she sees [facility].. Review of Systems: Review of Systems Review of Systems negative other than stated in the HPI Past Medical History: Past Medical History[1] Past Surgical History: Past Surgical History[2] Allergies: Allergies[3] Medications: Patient's Medications New Prescriptions No medications on file Previous Medications ERGOCALCIFEROL 1.25 MG (21394 UT) CAP Take 1 capsule by mouth. ETHOSUXIMIDE 250 MG CAP Take (2) tablets by mouth in the AM and (3) tablets in the PM (=1250 mg/d) FOLIC ACID 1 MG TABLET Take 1 tablet by mouth daily. ONDANSETRON 4 MG TAB DISPERSIBLE TABLET Take 1 tablet by mouth every 8 hours as needed for Nausea. PSEUDOEPHEDRINE-BROMPHENIRAMINE -DEXTROMETHORPHAN 30-2-10 MG/5ML SYRUP Take 10 mL by mouth every 6 hours as needed. SERTRALINE 50 MG TAB TABLET Take 50 mg by mouth Daily (with dinner). TRIAMCINOLONE 0.1 % CREAM CREAM Apply twice daily as needed Modified Medications No medications on file Discontinued Medications No medications on file Family History: Family History Problem Relation Age of Onset Hypertension Mother No known problems Father Hypertension Maternal Grandmother Heart Surgery Maternal Grandmother Hypertension Maternal Grandfather Stroke Maternal Grandfather No known problems Paternal Grandmother No known problems Paternal Grandfather Social History: Social History Socioeconomic History Marital status: Single Spouse name: Not on file Number of children: Not on file Years of education: Not on file Highest education level: Not on file Occupational History Not on file Tobacco Use Smoking status: Never Smokeless tobacco: Never Vaping Use Vaping status: Never Used Substance and Sexual Activity Alcohol use: No Drug use: No Sexual activity: Not on file Other Topics Concern Service Not Asked Blood Transfusions Not Asked Caffeine Concern Not Asked Occupational Exposure Not Asked Hobby Hazards Not Asked Sleep Concern Not Asked Stress Concern Not Asked Weight Concern Not Asked Special Diet Not Asked Back Care Not Asked Exercise Not Asked Bike Helmet Not Asked Seat Belt Not Asked Domestic Violence No Social History Narrative Not on file Social Drivers of Health Financial Resource Strain: Not on file Food Insecurity: Not on file Transportation Needs: Not on file Physical Activity: Not on file Stress: Not on file Social Connections: Not on file Personal Safety: Not on file Housing Stability: Not on file Physical Exam: Physical Exam Vitals and nursing note reviewed. Constitutional: Appearance: Normal appearance. HENT: Head: Normocephalic and atraumatic. Eyes: Conjunctiva/sclera: Conjunctivae normal. Cardiovascular: Rate and Rhythm: Normal rate and regular rhythm. Pulmonary: Effort: Pulmonary effort is normal. No respiratory distress. Breath sounds: Normal breath sounds. No wheezing. Abdominal: General: There is no distension. Palpations: Abdomen is soft. Tenderness: There is no abdominal tenderness. There is no guarding. Musculoskeletal: General: No deformity or signs of injury. Normal range of motion. Cervical back: Normal range of motion and neck supple. Skin: Findings: No rash. Neurological: General: No focal deficit present. Mental Status: She is alert and oriented to person, place, and time. Cranial Nerves: No cranial nerve deficit. Sensory: No sensory deficit. Motor: No weakness. Coordination: Coordination normal. Psychiatric: Behavior: Behavior normal. Thought Content: Thought content normal. Judgment: Judgment normal. Vital Signs During ED Visit Patient Vitals for the past 24 hrs: BP Temp Temp src Pulse Resp SpO2 Weight 10/16/24 0021 125/72 -- -- 72 16 98 % -- 10/15/24 2341 128/77 -- -- 77 16 98 % -- 10/15/24 2234 -- -- -- -- -- -- 79.4 kg (175 lb) 10/15/24 2232 (!) 150/99 98.1 F (36.7 C) Oral 78 18 100 % -- Orders/Results: Results for orders placed or performed during the hospital encounter of 10/15/24 [facility]ON[facility]IR[facility] LAB 1 - NASOPHARYNGEAL Specimen: NASOPHARYNGEAL; Fluid/Swab Result Value Ref Range SARS COV 2 RNA, QL REAL TIME RT PCR NOT DETECTED NOT DETECTED NARRATIVE -1 This test was performed using isothermal LINDSAY for the qualitative detection of SARS-CoV-2 nucleic acid. INFLUENZA A AND B, PCR Result Value Ref Range INFLUENZA A NEGATIVE NEGATIVE INFLUENZA B NEGATIVE NEGATIVE CHEM 7 (LYTES,BUN,CREA,GLUC) Result Value Ref Range Glucose 97 70 - 100 MG/DL BUN 11 7 - 20 mg/dL CREATININE SERUM 0.60 (L) 0.70 - 1.20 mg/dL SODIUM 138 137 - 145 MMOL/L Potassium 4.4 3.5 - 5.1 MMOL/L CHLORIDE 106 98 - 107 MMOL/L CARBON DIOXIDE (CO2) 24 22 - 30 MMOL/L ESTIMATED GFR 133 ml/min/1.73sq.m GFR COMMENT Average GFR for 18-29 years old = 116. HEPATIC FUNCTION PANEL Result Value Ref Range Albumin 4.1 2.9 - 5.3 G/DL BILIRUBIN, TOTAL 0.2 0.2 - 1.3 mg/dL ALKALINE PHOSPHATASE 125 38 - 126 U/L AST 20 14 - 36 U/L BILIRUBIN, DIRECT 0.1 0.0 - 0.4 MG/DL PROTEIN, TOTAL 6.9 6.3 - 8.2 g/dL ALT 12 <35 U/L LIPASE Result Value Ref Range LIPASE 88 23 - 300 U/L CBC, EDIF, PLATELET Result Value Ref Range WBC (WHITE BLOOD COUNT) 7.8 3.6 - 11.0 10*3/uL RBC 4.39 4.0 - 5.4 10*6/uL HEMOGLOBIN (HGB) 13.2 12.0 - 16.0 G/DL HEMATOCRIT (HCT) 38.5 36.0 - 48.0 % Mean Cell Volume 87.7 80.0 - 100.0 FL Mean Cell HGB 30.1 26.0 - 35.0 PG Mean Cell HGB Concentration 34.3 27.0 - 37.0 G/DL RBC Distribution 12.9 11.5 - 14.5 % PLATELET COUNT 311 130 - 400 10*3/uL Mean Platelet Volume 8.2 7.4 - 11.0 FL DIFFERENTIAL TYPE AUTO DIFF % NEUTROPHILS 60.0 37.0 - 75.0 % LYMPHOCYTE 27.5 20.0 - 55.0 % MONOCYTE % 10.7 (H) 0.0 - 10.0 % EOSINOPHIL % 1.3 0.0 - 11.0 % BASOPHIL % 0.5 0.0 - 2.0 % Absolute Neutrophil Count 4.7 1.4 - 6.5 10*3/uL LYMPHOCYTES, ABSOLUTE 2.1 1.2 - 3.4 10*3/uL MONOCYTES, ABSOLUTE 0.8 (H) 0.0 - 0.7 10*3/uL ABSOLUTE EOSINOPHIL COUNT 0.1 0.0 - 0.7 10*3/uL ABSOLUTE BASOPHIL COUNT 0.0 0.0 - 0.2 10*3/uL D-DIMER,QUANTITATIVE Result Value Ref Range D-DIMER <0.27 <0.50 g/ml TROPONIN I, HIGH SENSITIVITY Result Value Ref Range TROPONIN I, HIGH SENSITIVITY <2 0 - 12 pg/mL Radiographic Imaging CT HEAD WITHOUT CONTRAST Final Result IMPRESSION: 1. No acute intracranial abnormality. No hemorrhage or mass effect. XR CHEST 1 VIEW PORTABLE (Results Pending) Procedures: Procedures EKG RESULTS RHYTHM: Normal sinus rhythm RATE : 71 AXIS : Normal ST SEGMENT CHANGES : No ST segment elevation or depression to indicate a STEMI COMPARISON TO PRIOR : No previous EKGs immediately available for comparison EKG was interpreted by Attending Physician here in the emergency room ED Summary/MDM Patient has been stable here in the emergency room. Her electrolytes are stable kidney function is good liver and pancreas enzymes are normal D-dimer is normal white count is normal hemoglobin is stable and normal COVID and influenza swabs were negative. Her CT scan of her head does not show any signs of a stroke intracranial mass or hemorrhage. Her chest x-ray shows no obvious pneumonia or pneumothorax. I discussed all these results with the patient and her fiance. I think that likely this is more of a viral illness giving her the headache and chest discomfort could also be related to anxiety. At this time I do not think this represents a myocardial infarction or cardiac cause of her symptoms. I do not think that she is having a TIA or CVA. I would recommend the patient follow up with the primary care doctor. If she has changing worsening or developing symptoms of any kind she can return for re-evaluation. She is comfortable with this plan we will use Tylenol and ibuprofen at home along with rest and fluids. Clinical Impression: 1. Chest pain, unspecified type 2. Acute nonintractable headache, unspecified headache type No follow-ups on file. New Prescriptions No medications on file Discontinued Medications No medications on file An After Visit Summary was printed and given to the patient with above information. Wanda Aguilar PA-C [facility] Emergency Department [place], [place] . . [1] Past Medical History: Diagnosis Date Depression Seizure Seizures [2] Past Surgical History: Procedure Laterality Date ADENOIDECTOMY [3] Allergies Allergen Reactions Amoxicillin Rash Wanda Aguilar PA-C 10/16/24 0050 Cosigned by Mohit Carson DO at 10/16/2024 6:09 AM EDT Associated attestation - Mohit Carson DO - 10/16/2024 6:09 AM EDT I agree with the advance practice provider's assessment, physical exam, and treatment plan for this patient. I was available for consultation on this patient and I did see and talk with the patient briefly before she was discharged home. [facility] 08-12-2024 Radiology Diagnostic study note [facility] Imaging Services [address], [place] [address] Chest PA and Lateral MR#: [id number] Acct: [id number] Name: LIN DECKER Rep #: [id number] : 2000 F 24 From: Ammon Javier MD PCP: Care Physician,No Primary Status: PRE ER Study:Chest PA and Lateral Date of Exam: 08/12/24 Exam# [id number] Ordering Dr: Dione Riley DO PROCEDURE: CHEST PA AND LATERAL 08/12/2024 REASON FOR EXAM: COUGH TECHNIQUE: CHEST PA AND LATERAL COMPARISON: None. FINDINGS: The lungs are expanded. There is no demonstrated parenchymal abnormality. There is no demonstrated pleural abnormality. Normal heart and pericardium. Normal mediastinum and elie. Normal visualized pulmonary arteries. Normal visualized aortic arch and descending thoracic aorta. Normal visualized thoracic spine. Normal visualized ribs, clavicles, and shoulders. There is no demonstrated abnormality of the visualized soft tissue structures ofthe upper abdomen. RAD/Chest PA and Lateral IMPRESSION: No evidence for acute abnormality. [facility] CC: Librado Riley DO; No Primary Care Physician ~ [employer]: Signed [facility] 08-11-2024 Hospital Discharg e instructions Additional Instructions Your x-ray showed no pneumonia. Your symptoms are consistent with a viral upper respiratory tract infection. This will need to resolve on its own as antibiotics cannot kill a virus. It will last on average 2 to 3 weeks. Take the prescribed medication as directed to help control your symptoms and return to the ER should you have any further concerns. [facility] Work Phone: 07-26-2024 History of Presen t illness Narrative Main historian: self Patient presents with Vomiting, Sinus Congestion, and Sore Throat Associated symptoms: unable to hold solid foods down for 2 days; abdominal pain after eating. Onset: x2 days Self treatments: none Alleviating factors none Aggravating factors: none Exposures: family member Last visit: HPI Lin Decker 2000 presents to the [facility] with Chief Complaint Patient presents with Vomiting Sinus Congestion Sore Throat Patient presents with nausea, vomiting, sinus congestion, chest congestion, cough, sore throat, postnasal drip today is day 3 of symptoms. She has not taken any pcdh-aeq-dsfdeyl medications for symptoms. States she is drinking fluids in his able to keep them down without difficulty. Positive sick contacts with work denies any hemoptysis, abdominal pain, hematemesis History Allergies Allergen Reactions Amoxicillin Rash Current Outpatient Medications Medication Sig ergocalciferol 1.25 MG (25474 UT) Cap Take 1 capsule by mouth. Ethosuximide 250 MG Cap Take (2) tablets by mouth in the AM and (3) tablets in the PM (=1250 mg/d) folic acid 1 MG tablet Take 1 tablet by mouth daily. Ondansetron 4 MG Tab Dispersible tablet Take 1 tablet by mouth every 8 hours as needed for Nausea. pseudoephedrine-brompheniramine -dextromethorphan 30-2-10 MG/5ML Syrup Take 10 mL by mouth every 6 hours as needed. sertraline 50 MG Tab tablet Take 50 mg by mouth Daily (with dinner). triamcinolone 0.1 % Cream cream Apply twice daily as needed Family History Problem Relation Age of Onset Hypertension Mother No known problems Father Hypertension Maternal Grandmother Heart Surgery Maternal Grandmother Hypertension Maternal Grandfather Stroke Maternal Grandfather No known problems Paternal Grandmother No known problems Paternal Grandfather Past Medical History: Diagnosis Date Depression Seizure Seizures Past Surgical History: Procedure Laterality Date ADENOIDECTOMY Social History Socioeconomic History Marital status: Single Spouse name: Not on file Number of children: Not on file Years of education: Not on file Highest education level: Not on file Occupational History Not on file Tobacco Use Smoking status: Never Smokeless tobacco: Never Vaping Use Vaping status: Never Used Substance and Sexual Activity Alcohol use: No Drug use: No Sexual activity: Not on file Other Topics Concern Service Not Asked Blood Transfusions Not Asked Caffeine Concern Not Asked Occupational Exposure Not Asked Hobby Hazards Not Asked Sleep Concern Not Asked Stress Concern Not Asked Weight Concern Not Asked Special Diet Not Asked Back Care Not Asked Exercise Not Asked Bike Helmet Not Asked Seat Belt Not Asked Domestic Violence No Social History Narrative Not on file Social Drivers of Health Financial Resource Strain: Not on file Food Insecurity: Not on file Transportation Needs: Not on file Physical Activity: Not on file Stress: Not on file Social Connections: Not on file Personal Safety: Not on file Housing Stability: Not on file ROS Review of Systems 8 systems reviewed with patient, negative unless specifically mentioned in history of present illness PHYSICAL EXAM Visit Vitals BP 132/87 (BP Location: Left arm, BP Position: Sitting) Pulse 123 Temp 98.2 F (36.8 C) (Temporal) Resp 18 Ht 1.727 m (5' 8) Wt 74.8 kg (165 lb) SpO2 98% BMI 25.09 kg/m Physical Exam Vitals and nursing note reviewed. Constitutional: Appearance: Normal appearance. HENT: Head: Normocephalic. Right Ear: Tympanic membrane, ear canal and external ear normal. Left Ear: Tympanic membrane, ear canal and external ear normal. Nose: Rhinorrhea present. Rhinorrhea is clear. Mouth/Throat: Mouth: Mucous membranes are moist. Pharynx: Oropharynx is clear. Eyes: Conjunctiva/sclera: Conjunctivae normal. Cardiovascular: Rate and Rhythm: Normal rate and regular rhythm. Pulses: Normal pulses. Heart sounds: Normal heart sounds. Pulmonary: Effort: Pulmonary effort is normal. Breath sounds: Normal breath sounds. Abdominal: General: Bowel sounds are normal. Musculoskeletal: General: Normal range of motion. Cervical back: Normal range of motion and neck supple. Skin: General: Skin is warm and dry. Neurological: General: No focal deficit present. Mental Status: She is alert. RESULTS Recent Results (from the past 2 hours) POCT INFLUENZA, A B Collection Time: 07/26/24 6:37 PM Result Value Ref Range POCT Influenza A Negative Negative, Not Tested, Invalid, Not Detected POCT Influenza B Negative Negative, Not Tested, Invalid, Not Detected SARS-COV-2 RAPID ANTIGEN (CLINIC ONLY) Collection Time: 07/26/24 6:38 PM Specimen: NARES Result Value Ref Range SARS-COV-2 Rapid Antigen NOT DETECTED NOT DETECTED NARRATIVE -1 This test was performed using lateral flow immunoassay. This test does not differentiate between SARS-CoV and SARS-CoV2. ASSESSMENT/PLAN 1. Viral illness 2. Sore throat 3. Nausea and vomiting, unspecified vomiting type 4. Acute cough Orders Placed This Encounter SARS-COV-2 RAPID ANTIGEN (CLINIC ONLY) POCT INFLUENZA, A B Ondansetron 4 MG Tab Dispersible tablet pseudoephedrine-brompheniramine -dextromethorphan 30-2-10 MG/5ML Syrup Physical exam is unremarkable. Oral mucosa is moist no signs of dehydration noted no acute distress noted COVID-19, influenza a and B negative symptoms likely viral etiology I did prescribe the patient Bromfed for symptomatic treatment also prescribe Zofran for nausea vomiting medications reviewed including appropriate administration. Work excuse provided Follow up if symptoms worsen or fails to improve over time. The risk and benefits of therapy were discussed with the patient. Alarm symptoms were discussed, along with reasons for contacting the office or going to the ER. Questions were answered for the patient. Follow up if symptoms worsen or fails to improve over time. If symptoms worsen patient was advised to follow up in our office, primary care provider or the Emergency Dept. Benefits, Risks, Contraindications, and Complications of recommended treatments were explained. The patient verbalized understanding and agrees to proceed with plan. EDGARD Jo 07/26/2024 documented in this encounter [facility] 07-12-2024 Note HNO ID: [id number] Author: GURDEEP VARGAS MD Service: ? Author Type: Physician Type: Progress Notes Filed: 07/13/2024 09:45 Note Text: [facility] Patient Name: Lin SÁNCHEZ Date of : 2000 INITIAL EPILEPSY CLINIC NOTE 07/11/2024 3:30 PM CHIEF COMPLAINT: New Patient and Epilepsy HISTORY OF PRESENT ILLNESS Brianne is a 24 year old right-handed adult seen in [facility] for initial consultation. Handedness: right-handed Age of onset: Seizure History and Evolution Lin is a 24-year-old female with a history of childhood absence epilepsy, previously followed with Dr. Velasquez, now presenting to establish care in adult clinic. 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 Her mother, who is present at the visit, describes these episodes as looking drugged. She also had learning difficulties in school and had an IEP/took special education classes. Lin was initially treated with Depakote and Keppra. Depakote was effective but discontinued due toconcerns about reaching pubertal age. Keppra caused aggression. Once establishing care with Dr. Velasquez, she was switched to ethosuximide and has been seizure-free since age 14 or 15. She is currently taking ethosuximide 500 mg in the morning and 750 mg at night, which she tolerates well without any reported side effects. Mother denies any history of convulsive seizures, though she had 1 brief generalized myoclonic seizure during photic stimulation during a routine EEG in 2013. 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 She is also interested in pursuing welding. She does not drive. She is not planning to be at this time, though does want children at some point in the future. She takes daily folic acid and vitamin D. Epilepsy risk factors include being born premature at 28 weeks as mother had pre-eclampsia. Sister also had 1 lifetime convulsive seizure at age 4, unprovoked Total # of Current Anti-seizure Medications: Side Effects to Current Anti-seizure Medications: Seizure Frequency at First Visit: Longest Seizure-free Interval: CURRENT OUTPATIENT ANTISEIZURE MEDICATIONS (as of the start of the encounter) ethosuximide (ZARONTIN) 250 mg capsule Take (2) tablets by mouth in the AM and (3) tablets in the PM (=1250 mg/d) Prior Anti-seizure Therapies: Trial Adequacy: Max Daily Dose Achieved: Side Effects: Effectiveness: Comments: Ethosuximide Levetiracetam Valproate Comorbidities: Episode Description: SEIZURE TYPE 1: Absence spells Aura: no Description: Staring spells lasting seconds, feels like she can't move during it. Feels tired afterwards. Last episode was at ~14 years of age (2014) Loss of awareness: Duration: Frequency: Last occurred: yes less than a minute Patient Entered Data: EPILEPSY SCORE 07/11/2024 1:16 PM 07/11/2024 1:15 PM 07/11/2024 1:14 PM First answer obtained - 07/11/2024 1:10 PM PHQ-9 SCORE - - - - KARIME 2 SCORE 0 [Negative Anxiety Screen] - - - KARIME 7 SCORE - - - - QOLIE-10 SCORE (0=worst; 100=best QoL - higher scores represent better function) - - - - LSSS SCORE (0- no seizures 100- most severe possible seizures) - - - - C-SSRS SCREEN - - - - On average, how many hours of sleep do you get in a 24-hour period? - 10 - - PROMIS Sleep Disturbance T-SCORE - - - 54 [within normal limits] Have you been diagnosed with Sleep Apnea? - No - - Seizure risk factors: Brain Tumor Unanswered DEAL ARCHITECT Infections Unanswered Developmental Delay Unanswered Family history of seizures Yes Febrile Seizure Unanswered Complications Unanswered Stroke No Traumatic Brain Injury Unanswered Previous Epilepsy Evaluations Routine EEG ([facility], 07/01/2022) Classifications: Abnormal I (10-20 Scalp Electrodes, Anterior Temporal Electrodes, Photic Stimulation, Tactile Stimulation, Auditory Stimulation, Hyperventilation, Awake, Sleep) Interictal: Intermittent Slow, Generalized, Maximum, Bilateral frontal Impression: This awake EEG shows evidence of mild diffuse cortical dysfunction. No definite epileptiform discharges or EEG seizures were seen during this recording. Routine EEG ([facility], 04/20/2015) Classification Normal (Awake, 10-20 Scalp Electrodes, Anterior temporal electrodes, Drowsy) Impression This EEG is within normal limits. Routine EEG ([facility], 12/12/2013) Classification Abnormal III (Awake, Sleep, 10-20 Scalp Electrodes) 1 Photoparoxysmal Response, Generalized 2 Poly Spikes, Regional Bifrontal 3 Mehrdad and Wave Complex, Generalized and regional Maximal bifrontal Impression This EEG supports the diagnosis of generalized epilepsy. Generalized epileptiform discharges were seen with photic stimulation (no clinical signs) as well as spontaneously. No seizures were (more content not included)... [facility] 05-10-2024 Telephone encounter Note The following approved medication requests have been transmitted electronically. Requested Prescriptions Signed Prescriptions Disp Refills ethosuximide (ZARONTIN) 250 mg capsule 450 capsule 0 Sig: Take (2) tablets by mouth in the AM and (3) tablets in the PM (=1250 mg/d) Authorizing Provider: JAKE VELASQUEZ MD [facility] 05-10-2024 Miscellaneous Notes The following approved medication requests have been transmitted electronically. Requested Prescriptions Signed Prescriptions Disp Refills ethosuximide (ZARONTIN) 250 mg capsule 450 capsule 0 Sig: Take (2) tablets by mouth in the AM and (3) tablets in the PM (=1250 mg/d) Authorizing Provider: JAKE VELASQUEZ MD Noted Lin has not been seen since 06/2023. Called Jermain Toro to advises of a need for a clinic visit with Dr. Velasquez. Transferred to appointment line and scheduling number given. -Prescription appropriate. Please file, document electronically, and CLOSE encounter. Thank you. -Routed to Dr. Velasquez. Bear Austin RN Prescription Refill: Requested by: pharmacy Please E-Scribe Caller Contact Number: Pharmacy Name: [facility] Pharmacy Number: [phone] Generic/ brand: 30 or 90 day supply requested: 90 Last appointment: 07/08/23 Next Appointment: none Patient of Dr. Jac Decker [phone] [id number] [id number] documented in this encounter [facility] 05-10-2024 Telephone encounter Note Noted Lin has not been seen since 06/2023. Called Mrs. Engel to advises of a need for a clinic visit with Dr. Velasquez. Transferred to appointment line and scheduling number given. -Prescription appropriate. Please file, document electronically, and CLOSE encounter. Thank you. -Routed to Dr. Velasquez. Bear Austin RN [facility] 05-10-2024 Telephone encounter Note Prescription Refill: Requested by: pharmacy Please E-Scribe Caller Contact Number: [facility] [facility] Number: [phone] Generic/ brand: 30 or 90 day supply requested: 90 Last appointment: 07/08/23 Next Appointment: none Patient of Dr. Jac Decker [id number] [facility] [id number] [facility] 02-11-2024 Telephone encounter Note - Was unable to complete PA via [employer] received an error message. - Called pharmacy and pharmacist states to disregard the request. - No further action required at this time. Bear Austin RN [facility] 02-11-2024 Miscellaneous Notes - Was unable to complete PA via [employer] received an error message. - Called pharmacy and pharmacist states to disregard the request. - No further action required at this time. Bear Austni RN Prior Authorization Needed: Received by: Fax Requested by (pharmacy name): [facility] Private Phone number: [phone] Name of medication: ethosuximide (ZARONTIN) 250 mg capsule Brand or Generic: Generic Strength and dosage: 250mg Quantity Override: No Insurance company name and phone #: [employer] PKEY#: [id number] BIN#: Group #: [id number] Patient of Dr. Velasquez documented in this encounter [facility] 02-11-2024 Telephone encounter Note Prior Authorization Needed: Received by: Fax Requested by (pharmacy name): [facility] Private Phone number: [phone] Name of medication: ethosuximide (ZARONTIN) 250 mg capsule Brand or Generic: Generic Strength and dosage: 250mg Quantity Override: No Insurance company name and phone #: [facility] PKEY#: [id number] BIN#: Group #: [id number] Patient of Dr. Velasquez [facility] 10-20-2023 History of Presen t illness Narrative Images from the original note were not included. HPI Lin Decker presents to the [facility] with Chief Complaint Patient presents with Rash Suspects poison victorina to left arm, needs work note Patient presents today with a red raised itchy rash on her left forearm after carrying wood. She suspects possible contact with poison victorina. She has been using topical anti-itch cream with some symptom relief. Today, she denies fever or chills, nausea vomiting or diarrhea, red streaking of the skin, changes in vision, palpitations, abdominal pain, or trouble breathing or swallowing. The following sections were personally reviewed by me: Tobacco Allergies Meds Problems Med Hx Surg Hx Fam Hx ROS As documented in HPI. A thorough 12 point review of systems was evaluated including Constitutional and general appearance, Head, Face, Ears, Eyes, Nose, Throat, Cardiovascular, Pulmonary, GI, , Skin, and Psychiatric and was found to be negative without symptoms or signs consistent with acute pathology with the exception of that specifically documented in the HPI section of this documentation. PHYSICAL EXAM Visit Vitals BP 132/78 (BP Location: Right arm, BP Position: Sitting) Pulse 79 Temp 97 F (36.1 C) (Temporal) Resp 18 Ht 1.727 m (5' 8) Wt 74.8 kg (165 lb) LMP 10/13/2023 (Exact Date) SpO2 99% BMI 25.09 kg/m Physical Exam Vitals and nursing note reviewed. Constitutional: General: She is not in acute distress. Appearance: Normal appearance. She is normal weight. She is not ill-appearing or toxic-appearing. HENT: Head: Normocephalic. Nose: Nose normal. Eyes: Pupils: Pupils are equal, round, and reactive to light. Cardiovascular: Rate and Rhythm: Normal rate. Pulmonary: Effort: Pulmonary effort is normal. Breath sounds: Normal breath sounds. Abdominal: General: Abdomen is flat. Bowel sounds are normal. Musculoskeletal: General: Normal range of motion. Cervical back: Normal range of motion and neck supple. Skin: General: Skin is warm and dry. Findings: Rash present. Rash is vesicular. Comments: Clusters of erythematous vesicular rash noted on the left forearm consistent with poison victorina. There is no fluctuance, induration, drainage, or signs of infection. A few of these areas have started to crust over at this time. Neurological: Mental Status: She is alert. Psychiatric: Mood and Affect: Mood normal. Behavior: Behavior is cooperative. RESULTS No results found for this or any previous visit (from the past 1 hour(s)). ASSESSMENT/PLAN 1. Irritant contact dermatitis due to plants, except food 2. Vesicular rash Orders Placed This Encounter triamcinolone (KENALOG-40) injection 40 mg triamcinolone 0.1 % Cream cream Patient presents today with new onset left forearm pruritic and vesicular rash consistent with poison victorina. Physical exam notes clusters of erythematous vesicular rash on left forearm without signs of infection. Patient elected to move forward with IM Kenalog while in the clinic today as well as triamcinolone cream b.i.d. and yzzu-tgq-lzilhkl measures such as IvaRest and Fels Naptha, and keeping the areas clean, dry and open to air as often as possible. Medication administration, side effects, and symptoms to monitor were reviewed. Educated regarding signs and symptoms that require prompt return to clinic or follow up at local ER. Patient remains alert and oriented, active and in no acute distress; discharged home. If symptoms worsen patient was advised to follow up in our office, primary care provider or the Emergency Dept. Benefits, Risks, Contraindications, and Complications of recommended treatments were explained. The patient understands and agrees to proceed with the plan. Pola Baltazar, MSN, CHARGE MASTER ANALYST, LAWN SERVICE WORKER-C 10/20/2023 documented in this encounter [facility] 10-20-2023 Instructions Pola Baltazar CNP - 10/20/2023 3:30 PM EDT You can get IvaRest and Fels Naptha over the counter to help with rash improvement and to reduce spreading to other parts. The following attachments cannot be sent through Care Everywhere.Poison Victorina - [place] - and [place] ([place]documented in this encounter [facility] 07-13-2023 Miscellaneous Notes Summary: Project IMPACTT: IRB [id number] IRB 16-134 Integrated Mobile Provider Access [facility] 4 Transition and Telemedicine (IMPACTT) Plant Manager: Ary Serrano MD [phone], Pager [phone] Research Coordinator: Dominique FINCH, /Monica Guadarrama RN, Interviewer: Alisia West Additional Details: Called Lin Decker to further discuss the study. Catalina, mother, answered the phone and stated that the patient could not come to the phone right now. This residential mortgage underwriter left contact information and encouraged patient to call back. Shawn Ricardo Research Coordinator documented in this encounter [facility] 07-13-2023 Telephone encounter Note Summary: Project IMPACTT: IRB [id number] IRB 16-134 Integrated Mobile Provider Access [facility] 4 Transition and Telemedicine (IMPACTT) Plant Manager: Ary Serrano MD [phone], Pager [phone] Research Coordinator: Dominique FINCH, /Monica Guadarrama RN, Interviewer: Alisia West Additional Details: Called Lin Decker to further discuss the study. Ctaalina, mother, answered the phone and stated that the patient could not come to the phone right now. This residential mortgage underwriter left contact information and encouraged patient to call back. Shawn Ricardo Research Coordinator [facility] 07-08-2023 History of Presen t illness Narrative Summary: Project IMPACTT: IRB [id number] IRB [id number] Integrated Mobile Provider [facility] 4 Transition and Telemedicine (IMPACTT) Plant Manager: Ary Serrano MD [phone], Pager [phone] Research Coordinator: Dominique FINCH, /Monica Guadarrama RN, Interviewer: Alisia West Additional Details: Approached Lin Decker in-person to introduce the study. Patient was given consent form and asked for more time to review the documents. This residential mortgage underwriter will call back in a few days to follow up. Shawn Ricardo, Research Coordinator documented in this encounter [facility] 07-08-2023 History of Presen t illness Narrative -[facility] Neurological [facility]: Section of Pediatric Epilepsy OFFICE VISIT - ESTABLISHED PATIENT Lin Decker [facility] Number: [id number] Date of Service: July 08, 2023 INTERVAL HISTORY: Lin was seen for an outpatient visit today; she is accompanied by her mother. I last saw her for an office visit on July 01, 2022. She has Childhood Absence Epilepsy. She has been clinically seizure free since July 2014 after starting Zarontin; however her EEGs in October 2016 had shown generalized spike-wave discharges. EEGs in 2017 and 2018 were normal; however the 2020 EEG again showed a single generalized spike-wave discharge lasting 2 seconds without clinical accompaniment. Her last EEG was on 07/01/2022 showing Intermittent Slow, Generalized, Maximum, Bilateral frontal She has been followed by Emperatriz Shoemaker, MSN, PMHNP-BC at [place] [address] in [place] for Depression and Social Anxiety. She has done much better after starting Zoloft, and has more energy. 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 Not driving currently and has trouble passing the written exam for it. She has a boyfriend now. CURRENT MEDICATIONS: Zarontin: 500 mg - 750 mg Zoloft 50 mg daily Vitamin D3 1000 units daily Folic acid 1 mg daily (not taking at present) Side Effects: None Latest Ref Rng 02/04/2019 04/17/2020 12/26/2020 07/01/2022 Ethosuximide 40 - 100 ug/mL 129 (H) 121 (H) 108 (H) 95 Previous AEDs tried: Depakote, Keppra REVIEW OF OTHER SYSTEMS: Reports pain in knees and elbows for past year. Other systems unremarkable. Has not had COVID vaccine yet. EXAMINATION: BP 122/72 Pulse 82 Temp 36.7 C (98 F) Resp 20 Ht 172.7 cm (5' 8) Wt 86.2 kg (190 lb 0.6 oz) LMP 06/24/2023 (Within Days) SpO2 100% BMI 28.89 kg/m She is alert, normal speech; face is symmetric. No nystagmus noted. IMPRESSION & PLAN: Lin's seizures remain under good control with Zarontin monotherapy. She will need to take Ethosuximide manager long term care. We will check her Ethosuximide and Vit D levels. Reason for joint pains is unclear - suggested Rheumatology consultation She is eligible to drive but has had difficulty passing the written test - will see if there is another format for taking it. . Depression, Social Anxiety are improved on Zoloft 50 mg/day. She takes Vitamin D 1000 units daily. I reminded her to also take Folic acid 1 mg daily She will be seen for EEG and transition care to Adult Epilepsy from next year 30 min were spent in this office visit. Jake Velasquez M.D. benefits consulting analyst Pediatric Epilepsy Section documented in this encounter [facility] 03-02-2023 Emergency department Note Chief Complaint Patient presents with Foot Injury Pt is c/o ankle and foot pain from getting her foot stuck in a mold at work. Patient History Past Medical History: Diagnosis Date Seizures (CMS/HCC) No past surgical history on file. No family history on file. Social History Social History Narrative Not on file Allergies Allergen Reactions Amoxicillin Rash PMH: Reviewed PSH: Reviewed Social History: Reviewed. Allergies reviewed. HPI: Lin Decker is a 23 y.o. female who presents to the ED today accompanied by mom with complaints of right foot and ankle pain. She was wearing boots at work. Slipped on the floor and got her foot stuck in between a mold machine. Denies prior injury. Nothing taken for pain prior to arrival. Complains of pain in the right lateral foot up into the ankle. PHYSICAL EXAM: GENERAL: Vitals noted, no distress. Alert and oriented x 3. Non-toxic. HEAD: Normocephalic, atraumatic. NECK: Supple. No midline or paraspinal tenderness through full range of motion. CARDIAC: Regular rate, rhythm. No murmurs or rubs. RESPIRATORY: Lungs clear and equal bilaterally. No respiratory distress. MUSCULOSKELETAL & SKIN: Warm, dry, and intact. No rash/lesions. No peripheral edema. NEURO: No focal neurologic deficits, acting appropriately. Labs Reviewed - No data to display XR foot right 3+ views Final Result No acute fracture or malalignment of the right ankle or foot. MACRO: None. Signed by: Katelin Sheppard 03/02/2023 9:59 PM Dictation workstation: [id number] XR ankle right 3+ views Final Result No acute fracture or malalignment of the right ankle or foot. MACRO: None. Signed by: Katelin Sheppard 03/02/2023 9:59 PM Dictation workstation: [id number] Medical Decision Making ED COURSE: This patient was seen and examined by myself independently. Given PO naprosyn for pain. Xrays of the right foot and ankle show no acute fracture or malalignment. She's up ambulatory with steady gait. Reassured. E-rx for naprosyn sent to her pharmacy. Referred to occupational health for return to work instructions and followup care. She is discharged home in a stable condition with computer instructions given and is encouraged to return to the ER for any new or worsening symptoms. DIAGNOSTIC IMPRESSION: #1 right foot contusion #2 right ankle sprain EDGARD Duarte 03/02/232209 documented in this encounter [facility] Work Phone: 03-02-2023 Physician Emergency department Note Chief Complaint Patient presents with Foot Injury Pt is c/o ankle and foot pain from getting her foot stuck in a mold at work. Patient History Past Medical History: Diagnosis Date Seizures (CMS/HCC) No past surgical history on file. No family history on file. Social History Social History Narrative Not on file Allergies Allergen Reactions Amoxicillin Rash PMH: Reviewed PSH: Reviewed Social History: Reviewed. Allergies reviewed. HPI: Lin Decker is a 23 y.o. female who presents to the ED today accompanied by mom with complaints of right foot and ankle pain. She was wearing boots at work. Slipped on the floor and got her foot stuck in between a mold machine. Denies prior injury. Nothing taken for pain prior to arrival. Complains of pain in the right lateral foot up into the ankle. PHYSICAL EXAM: GENERAL: Vitals noted, no distress. Alert and oriented x 3. Non-toxic. HEAD: Normocephalic, atraumatic. NECK: Supple. No midline or paraspinal tenderness through full range of motion. CARDIAC: Regular rate, rhythm. No murmurs or rubs. RESPIRATORY: Lungs clear and equal bilaterally. No respiratory distress. MUSCULOSKELETAL & SKIN: Warm, dry, and intact. No rash/lesions. No peripheral edema. NEURO: No focal neurologic deficits, acting appropriately. Labs Reviewed - No data to display XR foot right 3+ views Final Result No acute fracture or malalignment of the right ankle or foot. MACRO: None. Signed by: Katelin Sheppard 03/02/2023 9:59 PM Dictation workstation: [id number] XR ankle right 3+ views Final Result No acute fracture or malalignment of the right ankle or foot. MACRO: None. Signed by: Katelin Sheppard 03/02/2023 9:59 PM Dictation workstation: [id number] Medical Decision Making ED COURSE: This patient was seen and examined by myself independently. Given PO naprosyn for pain. Xrays of the right foot and ankle show no acute fracture or malalignment. She's up ambulatory with steady gait. Reassured. E-rx for naprosyn sent to her pharmacy. Referred to occupational health for return to work instructions and followup care. She is discharged home in a stable condition with computer instructions given and is encouraged to return to the ER for any new or worsening symptoms. DIAGNOSTIC IMPRESSION: #1 right foot contusion #2 right ankle sprain EDGARD Duarte 03/02/232209 [facility] Work Phone: 08-22-2022 Miscellaneous Notes The following approved medication requests have been transmitted electronically. Requested Prescriptions Signed Prescriptions Disp Refills ethosuximide (ZARONTIN) 250 mg capsule 450 capsule 3 Sig: Take (2) tablets by mouth in the AM and (3) tablets in the PM (=1250 mg/d) Authorizing Provider: JAKE VELASQUEZ MD Date of service: August 22, 2022 Lin Decker is a 22 year old. Last seen in office visit with Dr. Velasquez on 07/01/2022 Now requesting ethosuximide refill / different pharmacy request -Prescription appropriate, please file and document electronically. Thank you. -Routed to Dr. Jac Navarro LPN Prescription Refill: Requested by: parent Please E-Scribe Caller Contact Number: Pharmacy Name: [facility] Pharmacy Number: [phone] Generic/ brand: Generic 30 or 90 day supply requested: 90 Last appointment: 07/01/22 Next Appointment: none Patient of Dr. Velasquez documented in this encounter [facility] 05-18-2022 History of Presen t illness Narrative HPI Lin Decker presents to the [facility] with Chief Complaint Patient presents with Ear Pain LEFT EAR PAIN, X 2 DAYS left ear pain for 2 days. Patient states that she was having difficulty hearing from her ear felt that she her ears were full of wax she tried cleaning it with a Q-tip. After using a Q-tip she developed pain in the left ear. Does report having reduced hearing in the left ear. No hearing issues from the right ear. No fever cough congestion sore throat nausea vomiting or diarrhea. The following sections were personally reviewed by me: Tobacco Allergies Meds Problems Med Hx Surg Hx Fam Hx ROS As documented in HPI. A thorough 12 point review of systems was evaluated including Constitutional and general appearance, Head, Face, Ears, Eyes, Nose, Throat, Cardiovascular, Pulmonary, GI, , Skin, and Psychiatric and was found to be negative without symptoms or signs consistent with acute pathology with the exception of that specifically documented in the HPI section of this documentation. PHYSICAL EXAM Visit Vitals BP 136/82 (BP Location: Right arm, BP Position: Sitting) Pulse 81 Temp 98.8 F (37.1 C) (Temporal) Resp 16 Ht 1.727 m (5' 8) Wt 81.6 kg (180 lb) SpO2 99% BMI 27.37 kg/m Physical Exam Constitutional: General: She is not in acute distress. Appearance: Normal appearance. She is not ill-appearing. HENT: Head: Normocephalic and atraumatic. No right periorbital erythema or left periorbital erythema. Jaw: There is normal jaw occlusion. No trismus, tenderness, swelling, pain on movement or malocclusion. Salivary Glands: Right salivary gland is not diffusely enlarged or tender. Left salivary gland is not diffusely enlarged or tender. Right Ear: Hearing, tympanic membrane, ear canal and external ear normal. No middle ear effusion. There is impacted cerumen. Tympanic membrane is not perforated, erythematous, retracted or bulging. Left Ear: Hearing, tympanic membrane, ear canal and external ear normal. No middle ear effusion. There is impacted cerumen. Tympanic membrane is not perforated, erythematous, retracted or bulging. Ears: Comments: Bilateral cerumen impaction. After irrigation large amounts of cerumen removed from both EAC. EACs are clear from impaction. TM is unremarkable bilateral with no erythema or bulging. No effusions present. Nose: Congestion and rhinorrhea present. Rhinorrhea is clear. Right Turbinates: Enlarged and swollen. Not pale. Left Turbinates: Enlarged and swollen. Not pale. Right Sinus: No maxillary sinus tenderness or frontal sinus tenderness. Left Sinus: No maxillary sinus tenderness or frontal sinus tenderness. Mouth/Throat: Lips: [place]. Pharynx: Oropharynx is clear. Uvula midline. No pharyngeal swelling, oropharyngeal exudate, posterior oropharyngeal erythema or uvula swelling. Tonsils: No tonsillar exudate or tonsillar abscesses. Eyes: General: Lids are normal. Vision grossly intact. No allergic shiner, visual field deficit or scleral icterus. Right eye: No discharge. Left eye: No discharge. Extraocular Movements: Extraocular movements intact. Conjunctiva/sclera: Conjunctivae normal. Right eye: Right conjunctiva is not injected. No chemosis, exudate or hemorrhage. Left eye: Left conjunctiva is not injected. No chemosis, exudate or hemorrhage. Pupils: Pupils are equal, round, and reactive to light. Cardiovascular: Rate and Rhythm: Normal rate and regular rhythm. Pulmonary: Effort: Pulmonary effort is normal. No respiratory distress. Breath sounds: Normal breath sounds. No stridor. No wheezing, rhonchi or rales. Musculoskeletal: Cervical back: Full passive range of motion without pain, normal range of motion and neck supple. No rigidity. Normal range of motion. Lymphadenopathy: Cervical: No cervical adenopathy. Right cervical: No superficial, deep or posterior cervical adenopathy. Left cervical: No superficial, deep or posterior cervical adenopathy. Neurological: Mental Status: She is alert. RESULTS No results found for this or any previous visit (from the past 1 hour(s)). ASSESSMENT/PLAN 1. Bilateral impacted cerumen No orders of the defined types were placed in this encounter. Bilateral cerumen impaction. Procedure: Bilateral ear irrigations. Large amounts of cerumen removed from each ear. She reports improved hearing. Discussed use of debrox in the future. Do not stick anything in your ear canal. If he develop new or worsening symptoms return otherwise follow with her PCP as needed. If symptoms worsen patient was advised to follow up in our office, primary care provider or the Emergency Dept. Benefits, Risks, Contraindications, and Complications of recommended treatments were explained. The patient understands and agrees to proceed with the plan. Removed impacted cerumen from both ears with lavage, per provider's order. Patient tolerated well. kms documented in this encounter [facility] 10-14-2021 History of Presen t illness Narrative URGENT CARE ENCOUNTER CHIEF COMPLAINT Headache (Pt presents with FLOYD, shortness of breath, body aches and sinus issues x1day. Pt states she was exposed to Covid-19 on 10/12.) HPI Lin Decker is a 21 y.o. female who presents today for evaluation of Cough, congestion, headache, myalgias; onset this morning. Symptoms moderate and constant. Recently exposed to a positive history of coronavirus, and is requesting testing. REVIEW OF SYSTEMS Review of Systems 8 Systems reviewed with patient, negative unless specifically mentioned in history of present illness PAST MEDICAL HISTORY Past Medical History: Diagnosis Date Depression Seizure Seizures SURGICAL HISTORY Past Surgical History: Procedure Laterality Date ADENOIDECTOMY CURRENT MEDICATIONS Current Outpatient Medications Medication Sig Dispense Refill ergocalciferol 1.25 MG (54831 UT) Cap Take 50,000 Units by mouth. Ethosuximide 250 MG Cap Take (2) tablets by mouth in the AM and (3) tablets in the PM (=1250 mg/d) folic acid 1 MG tablet Take 1 mg by mouth daily. sertraline 50 MG Tab tablet Take 50 mg by mouth Daily (with dinner). No current facility-administered medications for this visit. ALLERGIES Allergies Allergen Reactions Amoxicillin Rash FAMILY HISTORY Family History Problem Relation Age of Onset Hypertension Mother No known problems Father Hypertension Maternal Grandmother Heart Surgery Maternal Grandmother Hypertension Maternal Grandfather Stroke Maternal Grandfather No known problems Paternal Grandmother No known problems Paternal Grandfather PHYSICAL EXAM BP 139/90 (BP Location: Left arm, BP Position: Sitting) Pulse 86 Temp 98.3 F (36.8 C) (Temporal) Resp 19 Ht 1.702 m (5' 7) Wt 90.7 kg (200 lb) SpO2 99% BMI 31.32 kg/m Smoking Status Never Smoker Physical Exam Vitals and nursing note reviewed. Constitutional: General: She is not in acute distress. Appearance: She is not toxic-appearing or diaphoretic. HENT: Head: Normocephalic and atraumatic. Mouth/Throat: Comments: masked Eyes: General: Right eye: No discharge. Left eye: No discharge. Conjunctiva/sclera: Conjunctivae normal. Cardiovascular: Rate and Rhythm: Normal rate and regular rhythm. Pulses: Normal pulses. Heart sounds: Normal heart sounds. No murmur heard. No friction rub. No gallop. Pulmonary: Effort: Pulmonary effort is normal. No respiratory distress. Breath sounds: Normal breath sounds. No wheezing, rhonchi or rales. Musculoskeletal: Cervical back: Normal range of motion and neck supple. Skin: General: Skin is warm and dry. Capillary Refill: Capillary refill takes less than 2 seconds. Coloration: Skin is not pale. Findings: No rash. Neurological: General: No focal deficit present. Mental Status: She is alert and oriented to person, place, and time. Psychiatric: Mood and Affect: Mood normal. Behavior: Behavior normal. Diagnosis, Assessment & Plan: Lin was seen today for headache. Diagnoses and all orders for this visit: COVID-19 virus infection - SARS-COV-2 RAPID; Future - SARS-COV-2 RAPID -Rapid Covid POSITIVE -Covid instructions were given to patient, including appropriate quarantine of self & household contacts. Corresponding work/school excuse was provided if indicated. Advised to follow-up with primary care, aware that this may be done via virtual/telephone visit. Instructed to go to the nearest emergency department if difficulty breathing. Benefits, risks, contraindications, & complications of recommended treatments were explained. The patient understands & agrees to proceed with plan. EDGARD Orozco 10/14/2021 documented in this encounter [facility] 10-14-2021 Instructions EDGARD Orozco - 10/14/2021 4:50 PM EDT Home to self quarantine for 5 days from positive test, as discussed. Quarantine may be lifted on day #6 if fever free & improvement in respiratory symptoms, however should continue to wear mask for 5 additional days. If you continue to have a fever, you should continue to quarantine until fever free for 24 hours without use of fever reducing medication. May take Tylenol or ibuprofen as needed for fever or discomfort. Increase oral fluids, rest. Please follow-up with your primary care provider, this may be done via telephone/virtual visit. Go to the nearest Emergency Department for new, worsening, or worrisome symptoms such as difficulty breathing. 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 [facility] Diagnosis Contusion of left hand, initial encounter documented in this encounter [facility] Work Phone: Evaluation note* Diagnosis Sprain of right ankle, unspecified ligament, initial encounter- Primary Contusion of right foot, initial encounter documented in this encounter [facility] Work Phone: Evaluation note* Diagnosis 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 Vitamin D deficiency Unspecified vitamin D deficiency Anxiety and depression Dysthymic disorder Arthralgia, unspecified joint documented in this encounter [facility] note* Diagnosis Irritant contact dermatitis due to plants, except food- Primary Contact dermatitis and other eczema due to plants (except food) Vesicular rash Rash and other nonspecific skin eruption documented in this encounter [facility] note* 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 documented in this encounter [facility] note* Diagnosis Viral illness- Primary Unspecified viral infection, in conditions classified elsewhere and of unspecified site Sore throat Acute pharyngitis Nausea and vomiting, unspecified vomiting type Acute cough documented in this encounter [facility] noteNo assessment information availableWLakeHealth [facility] Work Phone: Evaluation note* Diagnosis Chest pain, unspecified type- Primary Acute nonintractable headache, unspecified headache type documented in this encounter [facility] note* Diagnosis Nausea and vomiting, unspecified vomiting type- Primary documented in this encounter [facility] note* Diagnosis Nausea and vomiting, unspecified vomiting type- Primary Sinus pressure Other diseases of nasal cavity and sinuses [facility] Attachments The following attachments cannot be sent through Care Everywhere. * Earwax Blockage ([place]) [facility]* Attachments The following attachments cannot be sent through Care Everywhere. * Viral Infections ([place]) [facility] for referral (narrative)No reason for referral information availableWLakeHealth [facility] Work Phone: Reason for referral (narrative)* Radiology (Emergency) - New Request Specialty Diagnoses / Procedures Referred By Kiley boswell Referred To Contact Procedures ECG Mohit Carson DO [address] [place] [address] Phone: tel: fax: Referral ID Status Reason Start Date Expiration Date V isits Requested Visits Authorized [id number] New Request 10/15/2024 11/09/2025 1 1 SitScape Summary Purpose Family History No Family History Records FoundNo Family History Records FoundNo Family History Records FoundNo Family History Records FoundNo Family History Records FoundNo Family History Records FoundNo Family History Records FoundNo Family History Records FoundNo Family History Records Found Advance Directives No Advanced Directives Records Found Advance Directive Response Recorded Date/ Time Do you have a Healthcare Power of Complaint Inspector? No August 12, 2024 12:23am Instructions * Patient Instructions* Mirella Telles PA-C - 07/01/2018 8:10 AM EDT Self-Care for Sore Throats Sore throats happen for many reasons, such as colds, allergies, and infections caused by viruses orbacteria. In any case, your throat becomes red and sore. Your goal for self-care is to reduce your discomfort while giving your throat a chance to heal. Moisten and soothe your throat Tips include the following: Try a sip of water first thing after waking up. Keep your throat moist by drinking 6 or more glasses of clear liquids every day. Run a cool-air humidifier in your room overnight. Avoid cigarette smoke. Suck on throat lozenges, cough drops, hard candy, ice chips, or frozen fruit- juice bars. Use the sugar-free versions if your diet or medical condition requires them. Gargle to ease irritation Gargling every hour or 2 can ease irritation. Try gargling with 1 of these solutions: 1/4 teaspoon of salt in 1/2 cup of warm water An ezms-lgm-gllvdae anesthetic gargle Use medicine for more relief Afcl-hhs-vjfaqqe medicine can reduce sore throat symptoms. Ask your pharmacist if you have questions about which medicine to use: Ease pain with anesthetic sprays. Aspirin or an aspirin substitute also helps. Remember, never giveaspirin to anyone 18 or younger, or if you are already taking blood thinners. For sore throats caused by allergies, try antihistamines to block the allergic reaction. Remember: unless a sore throat is caused by a bacterial infection, antibiotics won t help you. Prevent future sore throats Prevention tips include the following: Stop smoking or reduce contact with secondhand smoke. Smoke irritates the tender throat lining. Limit contact with pets and with allergy-causing substances, such as pollen and mold. When you re around someone with a sore throat or cold, wash your hands often to keep viruses or bacteria from spreading. Don t strain your vocal cords. Call your healthcare provider Contact your healthcare provider if you have: A temperature over 101 F (38.3 C) White spots on the throat Great difficulty swallowing Trouble breathing A skin rash Recent exposure to someone else with strep bacteria Severe hoarseness and swollen glands in the neck or jaw Date Last Reviewed: 09/24/201519998205-3999 [employer]. [address] [place] [address]. All rights reserved. This information is not intended as a substitute for professional medical care. Always follow yourhealthcare professional's instructions. documented in this encounter* Patient Instructions* Catherine Espino PA - 03/28/2019 6:45 PM EST Influenza in Teens: Care Instructions Your Care Instructions Influenza (flu) is an infection in the respiratory tract. It is caused by the influenza virus. There are different strains of the flu virus from year to year. Unlike the common cold, the flu comes onsuddenly, and the symptoms, such as a cough, congestion, fever, chills, fatigue, aches, and pains, are more severe. These symptoms may last up to 10 days. Although the flu can make you feel very sick, it usually does not cause serious health problems. Home treatment is usually all you need for flu symptoms. But your doctor may prescribe antiviral medicine to prevent other health problems, such as pneumonia, from developing. Teens who have a long-term health condition, such as asthma, are more at risk for having pneumonia or other health problems. Follow-up care is a wang part of your treatment and safety. Be sure to make and go to all appointments, and call your doctor if you are having problems. It's also a good idea to know your test resultsand keep a list of the medicines you take. How can you care for yourself at home? Get plenty of rest. Drink plenty of fluids, enough so that your urine is light yellow or clear like water. If you have to limit fluids because of a health problem, talk with your doctor before you increase the amount offluids you drink. Take an tveg-kis-vjpatwm pain medicine if needed, such as acetaminophen (Tylenol), ibuprofen (Advil, Motrin), or naproxen (Aleve), to relieve fever, headache, and muscle aches. Be safe with medicines. Read and follow all instructions on the label. No one younger than 20 should take aspirin. It has been linked to Abby syndrome, a serious illness. Do not smoke. Smoking can make the flu worse. If you need help quitting, talk to your doctor about stop-smoking programs and medicines. These can increase your chances of quitting for good. Breathe moist air from a hot shower or from a sink filled with hot water to help clear a stuffy nose. Before you use cough and cold medicines, check the label. If the skin around your nose and lips becomes sore, put some petroleum jelly (such as Vaseline) on the area. To ease coughing: ? Drink fluids to soothe a scratchy throat. ? Suck on cough drops or plain, hard candy. ? Try an pkgu-mod-atmhdca cough medicine. Read and follow all instructions on the label. ? Raise your head at night with an extra pillow. This may help you rest if coughing keeps you awake. Take any prescribed medicine exactly as directed. Call your doctor if you think you are having a problem with your medicine. To avoid spreading the flu Wash your hands regularly, and keep your hands away from your face. Stay home from school, work, and other public places until you are feeling better and your fever has been gone for at least 24 hours. The fever needs to have gone away on its own without the help of medicine. Ask people living with you to talk to their doctors about preventing the flu. They may get antiviral medicine to keep from getting the flu from you. To prevent the flu in the future, get a flu shot every fall. Encourage people living with you to get the vaccine. Cover your mouth when you cough or sneeze. If you can, cough or sneeze into the bend of your elbow,not your hands. When should you call for help? Call anytime you think you may need emergency care. For example, call if: You have severe trouble breathing. Call your doctor now or seek immediate medical care if: You have trouble breathing. You have a fever with a stiff neck or a severe headache. You are sensitive to light or feel very sleepy or confused. Watch closely for changes in your health, and be sure to contact your doctor if: You have a new or higher fever. Your symptoms get worse, or you seem to get better, then get worse again. Your symptoms last longer than 10 days. Where can you learn more? Go to http://[email or web address]/patiented. Enter D673 in the search box to learn more about 'Influenza in Teens: Care Instructions.' Interested in seeing a video go to [email or web address]/videolibrary to see all video content. Current as of: August 01, 2018 Content Version: 12.3 4379-1549 [employer]. Care instructions adapted under license by your healthcare professional. If you have questions about a medical condition or this instruction, always ask your healthcare professional. [employer] disclaims any warranty or liability for your use of this information. documented in this encounter History of Present Illness * Mirella Telles PA-C - 07/01/2018 8:10 AM EDT HPI Lin Decker is a 18 y.o. female who presents today for complaint of sore throat for the past 3 days. Associated symptoms include cough, right ear pain, chills. Denies headache, upset stomach, fever, runny nose/congestion. Self treatment - OTC cold medications ROS Constitutional: Denies Fever, fatigue Eyes: Denies visual change or eye discharge Head/Ear/Nose/Throat: Denies sinus congestion, runny nose Respiratory: Denies shortness of breath Cardiovascular: Denies chest pain Gastrointestinal: Denies abdominal pain, Denies nausea, Denies vomiting, Denies diarrhea Musculoskeletal: Denies Joint pain, Denies muscle pain Lymphatic: Denies enlarged lymph nodes Skin: Denies Rash Neurological: Denies Headache, Denies focal neuro symptoms Social History Tobacco Use Smoking status: Never Smoker Smokeless tobacco: Never Used Substance Use Topics Alcohol use: No Drug use: No Family History Problem Relation Age of Onset Hypertension Mother No known problems Father Hypertension Maternal Grandmother Heart Surgery Maternal Grandmother Hypertension Maternal Grandfather Stroke Maternal Grandfather No known problems Paternal Grandmother No known problems Paternal Grandfather Past Medical History: Diagnosis Date Seizure Seizures Past Surgical History: Procedure Laterality Date ADENOIDECTOMY EXAM Blood pressure 121/85, pulse 86, temperature 97.9 F (36.6 C), temperature source Temporal, resp. rate 18, height 1.74 m (5' 8.5), weight 84.4 kg (186 lb), last menstrual period 06/17/2018, SpO2 99 %. Primary Assessment: Airway patent. Respirations unlabored, Normal respiratory effort Constitutional: Vital signs reviewed. Well appearing. No distress Psychiatric: Mental status appropriate. Normal affect Skin: Warm and dry. No rashes noted Eyes: Conjunctiva clear. No photophobia HENT: Normocephalic. Ears - Left tympanic membrane and canal clear, Right tympanic membrane and canal clear. Posterior pharynx clear. Lymphatics: positive bilateral anterior cervical lymphadenopathy, no posterior cervical lymphadenopathy Cardio: regular rate and rhythm. No murmurs, rubs, or gallop Thorax/ Respiratory: Respiratory effort non-labored, lungs clear to ascultation Musculoskeletal: Neck supple Neurologic: Alert and Oriented Rapid strep test negative. Diagnosis/ Plan: Lin was seen today for sore throat, ear pain and cough. Diagnoses and all orders for this visit: Acute viral pharyngitis - POCT RAPID STREP A - CULTURE THROAT; Future - predniSONE 20 MG Tab tablet; Take 2 tablets by mouth daily for 5 days. A rapid strep is acutely negative. Tonsils do not appear significantly erythematous or with exudate. Otherwise patient is in no acute distress, good vital signs and otherwise nontoxic in appearance. Will use supportive measures and will have her follow up with her PCP. We will treat as an acute viral pharyngitis. We will send for throat culture for definitive management and continue supportive therapies including Tylenol and Motrin, cough drops and throat sprays. If symptoms worsen patient was advised to follow up in our office or with his/her PCP. Benefits, Risks, Contraindications, and Complications of recommended treatments were explained. The patient understands and agrees to proceed with plan. Mirella Telles PA-C 07/01/2018 documented in this encounter* Catherine Espino PA - 03/28/2019 6:45 PM EST URGENT CARE eNCOUnter CHIEF COMPLAINT Sore Throat (symptoms started thursday); Cough; Fever; Headache; Nasal Congestion; and Sinus Congestion HPI Lin Decker is a 19 y.o. female who presents today for complaining of 4 days of cough, fever, headache, nasal congestion.. Mother has been giving her ibuprofen at home as needed for fever. Patient has history of epilepsy but denies any recent seizure activity. Denies any difficulty breathing orshortness of breath. Denies abdominal pain. REVIEW OF SYSTEMS Review of Systems Constitutional: Positive for chills, fatigue and fever. HENT: Positive for congestion and sore throat. Negative for trouble swallowing. Eyes: Negative for visual disturbance. Respiratory: Positive for cough. Negative for chest tightness and shortness of breath. Cardiovascular: Negative for chest pain. Gastrointestinal: Negative for abdominal pain, nausea and vomiting. Musculoskeletal: Negative for back pain and neck pain. Skin: Negative for rash. Neurological: Positive for headaches. Negative for dizziness and weakness. All other systems reviewed and are negative. PAST MEDICAL HISTORY Past Medical History: Diagnosis Date Depression Seizure Seizures SURGICAL HISTORY Past Surgical History: Procedure Laterality Date ADENOIDECTOMY CURRENT MEDICATIONS Current Outpatient Medications Medication Sig Dispense Refill ergocalciferol 1.25 MG (30566 UT) Cap Take 50,000 Units by mouth. Ethosuximide 250 MG Cap Take (2) tablets by mouth in the AM and (3) tablets in the PM (=1250 mg/d) sertraline 50 MG Tab tablet Take 50 mg by mouth Daily (with dinner). No current facility-administered medications for this visit. ALLERGIES Allergies Allergen Reactions Amoxicillin Rash FAMILY HISTORY Family History Problem Relation Age of Onset Hypertension Mother No known problems Father Hypertension Maternal Grandmother Heart Surgery Maternal Grandmother Hypertension Maternal Grandfather Stroke Maternal Grandfather No known problems Paternal Grandmother No known problems Paternal Grandfather SOCIAL HISTORY Social History Socioeconomic History Marital status: Single Spouse name: Not on file Number of children: Not on file Years of education: Not on file Highest education level: Not on file Occupational History Not on file Social Needs Financial resource strain: Not on file Food insecurity: Worry: Not on file Inability: Not on file Transportation needs: Medical: Not on file Non-medical: Not on file Tobacco Use Smoking status: Never Smoker Smokeless tobacco: Never Used Substance and Sexual Activity Alcohol use: No Drug use: No Sexual activity: Not on file Lifestyle Physical activity: Days per week: Not on file Minutes per session: Not on file Stress: Not on file Relationships Social connections: Talks on phone: Not on file Gets together: Not on file Attends religion service: Not on file Active member of club or organization: Not on file Attends meetings of clubs or organizations: Not on file Relationship status: Not on file Intimate partner violence: Fear of current or ex partner: Not on file Emotionally abused: Not on file Physically abused: Not on file Forced sexual activity: Not on file Other Topics Concern Service Not Asked Blood Transfusions Not Asked Caffeine Concern Not Asked Occupational Exposure Not Asked Hobby Hazards Not Asked Sleep Concern Not Asked Stress Concern Not Asked Weight Concern Not Asked Special Diet Not Asked Back Care Not Asked Exercise Not Asked Bike Helmet Not Asked Seat Belt Not Asked Domestic Violence No Social History Narrative Not on file PHYSICAL EXAM Blood pressure (!) 143/91, pulse 92, temperature 99.7 F (37.6 C), temperature source Temporal, resp. rate 16, height 1.715 m (5' 7.5), weight 80.3 kg (177 lb), last menstrual period 03/24/2019, [id number] %, not currently . Physical Exam Physical Exam: General: Alert. no acute distress, age appropriate interactions, well-hydrated HEENT: Normocephalic, atraumatic; TMs normal, no nasal discharge, oral mucosa moist, posterior pharynx normal Eyes: No conjunctivitis, EOMI, normal periorbital, no drainage Neck: Supple, no lymphadenopathy, no meningismus. CV: Regular rate and rhythm, no murmurs, 2+ radial pulses Pulm: Clear to auscultation bilaterally, no wheezing or rhonchi, no retractions Abdomen: Soft, nontender, no guarding, no distention, normal bowel sounds Extremities: Warm and well perfused no cyanosis or edema Neurologic: Alert and age appropriate, no focal deficits, normal gait Skin: No rashes, normal capillary refill Diagnosis, Assessment & Plan: Lin was seen today for sore throat, cough, fever, headache, nasal congestion and sinus congestion. Diagnoses and all orders for this visit: Flu-like symptoms - POCT INFLUENZA, A B - POCT RAPID STREP A Influenza A Influenza B 19-year-old female presents positive for influenza A and B. Patient is a 34 days into the illness. I will not start Tamiflu. Discussed supportive care with ibuprofen and Tylenol back and forth as needed for fever. Encouraged plenty of rest and drinking fluids. Advised to go to the nearest emergencydepartment if she experiences any difficulty breathing or shortness of breath. LANI Patricio 03/29/2019 documented in this encounter Assessments Diagnosis Acute viral pharyngitis- Primary Acute pharyngitis Diagnosis Strep throat- Primary Streptococcal sore throat Diagnosis Flu-like symptoms- Primary Influenza with other respiratory manifestations Influenza A Influenza with other respiratory manifestations Influenza B Influenza with other respiratory manifestations Reason for Referral Specialty Diagnoses / Procedures Referred By Kiley boswell Referred To Contact Radiology Diagnoses Contusion of left hand, initial encounter Procedures MR hand left wo IV contrast Kelsi Desai, CHARGE MASTER ANALYST-SILK [employer]OTTER [address], [facility] [address] [place] [address] Referral ID Status Reason Start Date Expiration Date Visits Requested Visits Authorized [id number] Authorized Perform Procedure 3 05/31/2023 1 1 Chief Complaint and Reason for Visit Chief Complaint Admit Date SOB, COUGH, COLD SX August 11, 2024 11:0 4pm Additional Source Comments INFORMATION SOURCE (unrecogn ized section and content) DATE CREATED AUTHOR 08/13/2017 [facility] DATE CREATED AUTHOR AUTHOR'S ORGANIZ ATION 08/14/2017 [facility] DATE CREATED AUTHOR AUTHOR'S ORGANIZ ATION 07/15/2018 [facility] DATE CREATED AUTHOR AUTHOR'S ORGANIZ ATION 11/25/2022 [facility] DATE CREATED AUTHOR AUTHOR'S ORGANIZ ATION 10/07/2023 [facility] DATE CREATED AUTHOR AUTHOR'S ORGANIZ ATION 07/22/2024 [facility] DATE CREATED AUTHOR AUTHOR'S ORGANIZ ATION 10/19/2024 [facility] DATE CREATED AUTHOR AUTHOR'S ORGANIZ ATION 12/02/2024 [facility] DATE CREATED AUTHOR AUTHOR'S ORGANIZ ATION 12/07/2024 [facility] Reason for Visit (unrecogniz ed section and content) Reason Comments Sore Throat x4days Ear Pain Cough Reason Comments Sore Throat symptoms started thu day Cough Fever Headache Nasal Congestion Sinus Congestion Reason Comments Results Reason Comments Headache Pt presents with FLOYD, shortness of breath, body aches and sinus issues x1day. Pt states she was exposed to Covid-19 on 10/12. Reason Comments Ear Pain LEFT EAR PAIN, X 2 D AYS Reason Onset Date Comments Refill Request 08/22/2022 Specialty Diagnoses / Procedures Referred By Kiley boswell Referred To Contact Radiology Diagnoses Contusion of left hand, initial encounter Procedures MR hand left wo IV contrast Kelsi Desai, CHARGE MASTER ANALYST-[employer]TER [address], [facility] [address] [place] [address] Referral ID Status Reason Start Date Expiration Date Visits Requested Visits Authorized [id number] Authorized Perform Procedure 3 05/31/2023 1 1 Reason Comments Foot Injury Pt is c/o ankle and foot pain from getting her foot stuck in a mold at work. Reason Comments Research IRB [id number] Reason Comments Established Patient Reason Comments Rash Suspects poison victorina to left arm, needs work note Reason Comments Medication Authorization ethosuximide (Z ARONTIN) 250 mg capsule Reason Onset Date Comments Refill Request 05/10/2024 Reason Comments Vomiting Sinus Congestion Sore Throat Reason Comments Chest Pain Pt presents with kelli st pain, onset 3 days ago. Has cough, headache, and shortness of breath, as well as fatigue. Has hx of epilepsy, last reported seizure was when she was 14. Also on menses at this time. Reason Comments Emesis Emesis x yesterday, feels it was from eating uncooked eggs. Nausea today, no emesis. Work note needed. Reason Comments URI Sinus pressure, emes is, floyd, x 1 night Care Teams (unrecognized sec tion and content) Adult School Teacher Relationship Specialty Start Date End Date Provider, Historical PCP - General Other 10/08/20 Adult School Teacher Relationship Specialty Start Date End Date Provider, Historical PCP - General Other 10/08/20 Adult School Teacher Relationship Specialty Start Date End Date Generic Provider, No Assigned PcpMD PCP - General Family Medicine 12/02/22 Adult School Teacher Relationship Specialty Start Date End Date Generic Provider, No Assigned PcpMD PCP - General Family Medicine 12/02/22 Adult School Teacher Relationship Specialty Start Date End Date Provider, Historical PCP - General Other 10/08/20 Adult School Teacher Relationship Specialty Start Date End Date Provider, Historical PCP - General Other 10/08/20 Team Status: Active Member Role Status Dates No Primary Care Physician Primary Care Provider Active Team Status: Inactive Member Role Status Dates No Primary Care Physician Primary Care Provider Active Start: August 11, 2024 End: August 12, 2024 Dr. Librado Riley , Emergency Provider Active Start: August 11, 2024 End: August 12, 2024 Source Comments (unrecognize d section and content) In the event this informatio n is protected by the Federal Confidentiality of Alcohol and Drug Abuse Patient Records regulations: The Federal rules restrict any use of the information to criminally investigate or prosecute any alcohol or drug abuse patient.[facility] the event this information is protected by the Federal Confidentiality of Alcohol and Drug Abuse Patient Records regulations: The Federal rules restrict any use of the information to criminally investigate or prosecute any alcohol or drug abuse patient.[facility] the event this information is protected by the Federal Confidentiality of Alcohol and Drug Abuse Patient Records regulations: The Federal rules restrict any use of the information to criminally investigate or prosecute any alcohol or drug abuse patient.[facility] the event this information is protected by the Federal Confidentiality of Alcohol and Drug Abuse Patient Records regulations: The Federal rules restrict any use of the information to criminally investigate or prosecute any alcohol or drug abuse patient.[facility] the event this information is protected by the Federal Confidentiality of Alcohol and Drug Abuse Patient Records regulations: The Federal rules restrict any use of the information to criminally investigate or prosecute any alcohol or drug abuse patient.[facility] the event this information is protected by the Federal Confidentiality of Alcohol and Drug Abuse Patient Records regulations: The Federal rules restrict any use of the information to criminally investigate or prosecute any alcohol or drug abuse patient.[facility] Scheduled Active and Recently Administ ered Medications (unrecognized section and content) Medication Order 02/28/2023 03/01/2023 03/02/2023 naproxen (Naprosyn) tablet 500 mg (COMPLETED) 500 mg, oral, Once, On Thu03/02/23 at 2049, For 1 dose, If ordered PRN for pain, nurse is permitted to administer this medication for higher pain scores based on patient preference? Yes 2049 (Given - Provid er: Lesley Wynn RN) Goals (unrecognized section and content) Goals may be documented in a n alternate section FOR RECORDS PERTAINING TO PATIENTS WHO ARE OR HAVE BEEN ENROLLED IN A CHEMICAL DEPENDENCY/SUBSTANCEABUSE PROGRAM, SOME INFORMATION MAY BE OMITTED. This clinical summary was aggregated from multiple sources. Caution should be exercised in using it in the provision of clinical care. This summary normalizes information from multiple sources, and as a consequence, information in this document may materially change the coding, format and clinical context of patient data. In addition, data may be omitted in some cases. CLINICAL DECISIONS SHOULD BE BASED ON THE PRIMARY CLINICAL RECORDS. [employer] provides no warranty or guarantee of the accuracy or completeness of information in this document.
[2024-12-08 00:26] VITALS: BP 122/70; PULSE 81; RESP 15; TEMP 36.8; O2SAT 100
[2024-12-08 00:30] LABS: Internal QC Validated? YES +Cl - CLEAR BKGD; Pregnancy, Urine Negative Negative; Record Kit Lot#,Urine Preg 0000980607
== END 2024-12-08 00:27 | disposition home or self-care (01) ==
PROVIDERS: Emergency Provider Emergency Medicine; Visit Provider Emergency Medicine
DX: S06.0X0A Concussion without loss of consciousness, initial encounter (principal); S00.83XA Contusion of other part of head, initial encounter; G43.909 Migraine, unspecified, not intractable, without status migrainosus; W22.8XXA Striking against or struck by other objects, initial encounter; Y99.0 Civilian activity done for income or pay; Z79.899 Other long term (current) drug therapy; F17.290 Nicotine dependence, other tobacco product, uncomplicated
CPT/HCPCS: 70450; 81025; 99283